=== PATIENT | female | born 1960 | race Caucasian/White ===

== ENCOUNTER → 2017-12-18 07:33 | Outpatient (CLI) | payer OTHER, SELFPAY ==
[2017-12-18 12:00] LABS: Thyroid Stim Hormone (TSH) 1.43 uIU/mL (0.358-3.74)
[2017-12-19 09:38] LABS: Vitamin D,25 Hydroxy 19.7 ng/mL (29.95-100.01)
== END ==
PROVIDERS: Family Provider Family Medicine; PCP Family Medicine; Visit Provider Family Medicine
DX: E78.5 Hyperlipidemia, unspecified (principal); E55.9 Vitamin D deficiency, unspecified; F41.9 Anxiety disorder, unspecified
CPT/HCPCS: 82306; 84443

== ENCOUNTER → 2017-12-20 12:13 | Outpatient (CLI) | payer OTHER, SELFPAY ==
--- NOTE | 2017-12-20 12:17 | RAD_ITS ---
STUDY: X-RAY - PELVIS AND LEFT HIP REASON FOR EXAM: Female, 57 years old. Chronic pain TECHNIQUE: Three views of the pelvis and hip were obtained. COMPARISON: July 08, 2015 FINDINGS: The bowel gas pattern is unremarkable. The soft tissues are unremarkable. The visualized iliac wings, sacroiliac joints and sacrum are unremarkable. No abnormalities are seen in the visualized superior and inferior pubic rami. Normal appearing pubic symphysis. The visualized ischial tuberosities are unremarkable. The proximal femur shows no significant abnormalities. The acetabulum shows no significant abnormalities. There is mild articular joint space narrowing of the hip. RAD/Hip 2-3 Views with Pelvis IMPRESSION: There are mild degenerative changes in the left hip. Electronically Signed: Jeanne Ricketts MD at 21:16 EDT Tel Direct: [phone], Service support ,
--- NOTE | 2017-12-20 12:17 | RAD_ITS ---
STUDY: X-RAY - LUMBAR SPINE REASON FOR EXAM: Female, 57 years old. Chronic pain TECHNIQUE: Five view(s) of the lumbar spine were obtained. COMPARISON: November 22, 2015 FINDINGS: Normal lumbar lordosis. There is no significant scoliosis. There is normal alignment of the vertebrae. There is minimal spurring in the lumbar spine. Vertebral body heights are maintained. There is mild disc space narrowing at L2-3. The soft tissues are unremarkable. RAD/L/S Spine Min 4 Views IMPRESSION: Mild degenerative disc changes at L2-3 are stable in appearance. Electronically Signed: Jeanne Ricketts MD at 21:05 EDT Tel Direct: [phone], Service support ,
== END ==
PROVIDERS: Family Provider Family Medicine; PCP Family Medicine; Visit Provider Family Medicine
DX: M16.12 Unilateral primary osteoarthritis, left hip (principal); M51.36 Other intervertebral disc degeneration, lumbar region; G89.29 Other chronic pain
CPT/HCPCS: 72110; 73502

== ENCOUNTER → 2018-01-07 14:54 | Outpatient (CLI) | payer OTHER, SELFPAY ==
--- NOTE | 2018-01-07 14:56 | BI_ITS ---
MAMMOGRAPHY - BILATERAL SCREENING 3-D CHIQUIS SYNTHESIS REASON FOR EXAM: Female, 57 years old. Bilateral Screening 3-D tomosynthesis PERTINENT HISTORY: Sister with breast cancer. Hormone use. TECHNIQUE: 2-D mammograms and 3-D Chiquis synthesis of the breast (s) were performed. CAD was performed. COMPARISON: None. FINDINGS: The breast composition is composed of scattered fibroglandular density. Scattered benign calcifications are seen. No dense spiculated masses or suspicious microcalcifications are identified. No architectural distortion is identified. There is no skin thickening or retraction. There has been no significant change since the prior study. BI/SCREENING MAMM (CAD), BILAT IMPRESSION: No mammographic signs of malignancy. Routine yearly mammograms recommended. ASSESSMENT CATEGORY: BIRADS Category 2: Benign. A letter regarding these results will be sent to the patient by the facility within 30 days. FOLLOW UP RECOMMENDATION: Yearly follow up mammogram recommended. (A) Approximately 10% of breast cancers are not detected by mammography. A normal mammogram should not delay biopsy of a clinically suspicious abnormality. Electronically Signed: Jeremy Moon MD at 8:37 EDT , Service support ,
== END ==
PROVIDERS: Family Provider Family Medicine; PCP Family Medicine; Visit Provider Family Medicine
DX: Z12.31 Encounter for screening mammogram for malignant neoplasm of breast (principal); Z80.3 Family history of malignant neoplasm of breast
CPT/HCPCS: 77063; 77067

== ENCOUNTER 2018-02-04 09:24 | Day surgery (SDC) | payer OTHER, SELFPAY ==
[2018-02-04 09:43] VITALS: BP 130/95; PULSE 88; RESP 16; TEMP 36.6; O2SAT 100; BMI 34.5
[2018-02-04] MEDS: Bupivacaine 0.25% 30 ML Vial (10:29)
[2018-02-04] MEDS: MethylPREDNISolone Acetate 80 MG/ML Vial (10:29)
[2018-02-04 10:40] VITALS: BP 126/72; BP 130/95; PULSE 82; RESP 16; TEMP 36.3; O2SAT 92
[2018-02-04 10:45] VITALS: BP 123/77; BP 130/95; PULSE 74; RESP 16; O2SAT 93
[2018-02-04 10:50] VITALS: BP 124/80; BP 130/95; PULSE 74; RESP 16; O2SAT 92
[2018-02-04 10:52] VITALS: BP 117/76; BP 130/95; TEMP 36.4; O2SAT 93
[2018-02-04 11:06] VITALS: BP 130/95
--- NOTE | 2018-02-04 15:18 | PCM.OPRPT ---
Problem List (1) Degeneration of intervertebral disc of lumbosacral region Status: Chronic (2) Radiculopathy of lumbosacral region Status: Chronic (3) Spinal stenosis of lumbosacral region Status: Chronic Report of Operation Date of Procedure: 02/04/18 Pre-Operative Diagnosis: Lumbosacral radiculopathy, lumbosacral degenerative disc disease, lumbosacral spinal stenosis Post-Operative Diagnosis: Lumbosacral radiculopathy, lumbosacral degenerative disc disease, lumbosacral spinal stenosis Surgery/Procedure Performed:: Left sided lumbar transforaminal epidural steroid injection L4-5, L5-S1 Description of Surgical Findings:: PROCEDURE: Caudal epidural steroid injection PREOPERATIVE DIAGNOSIS: Lumbosacral radiculopathy, lumbosacral degenerative disc disease, lumbosacral spinal stenosis POSTOPERATIVE DIAGNOSIS: Lumbosacral radiculopathy, lumbosacral degenerative disc disease, lumbosacral spinal stenosis ANESTHESIA: MAC COMPLICATIONS: None BLOOD LOSS: Minimal PROCEDURE IN DETAIL: History and physical today was reviewed. Risks and benefits of the procedure were explained. The patient understood, agreed to our procedure, and informed consent was obtained. IV inserted per routine protocol. The patient was taken to the operating room, placed in a prone position with a pillow positioned underneath the abdomen. The Lower back area was prepped and draped in a sterile fashion using iodine ?3, under fluoroscopy guidance the L4-5 L5-S1 area was visualized at approximately 25? angle starting on the left L4 ending on the left L5, the skin and subcutaneous tissue were anesthetized with approximately 5 cc of 1% lidocaine using a 25-gauge regular needle under direct visualization fluoroscopy using a 22-gauge 5 inch spinal needle the needle was advised advanced via the skin the tip of the needle was maneuvered and directed towards the inferior and medial gutter of the transverse process at the superiormost aspect of the neuroforamen once the tip of the needle was at the vicinity of the foramen after negative aspiration for blood or CSF a total of 1 cc of contrast was injected in divided doses between both levels to confirm correct placement of the needle as well as medial spread the confirmation was obtained on AP as well as lateral view after repeated negative aspiration and confirmation AP as well as lateral view a total of 6 cc of preservative-free 0.25% Marcaine with 80 mg of Depo-Medrol were injected in divided doses between both levels. The needles were then removed intact. The patient experienced no signs or symptoms intrathecal, intravascular injection. The patient experienced no paraesthesia. The procedure was completed without any apparent difficult, any complication. The patient appeared to tolerate well. ASSESSMENT AND PLAN: This is a 57-year-old female with lumbosacral radiculopathy, lumbosacral degenerative disc disease, lumbosacral spinal stenosis status post left-sided lumbar transforaminal epidural steroid injection L4-5 L5-S1. The patient will continue her current medications. The patient will follow in approximately 2 weeks for possible repeat of the procedure if indicated.
== END 2018-02-04 11:13 | disposition home or self-care (01) ==
LOC: SDC 09:25 → AC 09:26
PROVIDERS: Family Provider Family Medicine; PCP Family Medicine; Visit Provider Anesthesiology Pain Medicine
PROC: 3E0S3BZ Introduction of Anesthetic Agent into Epidural Space, Percutaneous Approach (ICD-10-PCS; CPT 62323; principal; 2018-02-04 10:25)
DX: M47.817 Spondylosis without myelopathy or radiculopathy, lumbosacral region (principal); M51.37 Other intervertebral disc degeneration, lumbosacral region; M48.07 Spinal stenosis, lumbosacral region; M46.96 Unspecified inflammatory spondylopathy, lumbar region; M76.9 Unspecified enthesopathy, lower limb, excluding foot; M16.9 Osteoarthritis of hip, unspecified; M66.9 Spontaneous rupture of unspecified tendon; K21.9 Gastro-esophageal reflux disease without esophagitis; E78.00 Pure hypercholesterolemia, unspecified; F32.9 Major depressive disorder, single episode, unspecified; Z78.0 Asymptomatic menopausal state; Z79.891 Long term (current) use of opiate analgesic; Z79.899 Other long term (current) drug therapy
CPT/HCPCS: 62323; 64483; 72100; J7120

== ENCOUNTER → 2018-02-14 11:40 | Outpatient (CLI) | payer OTHER, SELFPAY | PROVIDERS: Family Provider Family Medicine; PCP Family Medicine; Visit Provider Physician Assistant | DX: R05 Cough (principal) | CPT/HCPCS: 70360 ==

== ENCOUNTER 2018-04-20 10:15 | Outpatient (RCR) | payer OTHER, SELFPAY ==
--- NOTE | 2017-09-19 20:08 | MASS.EVAL ---
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 She was referred for massage therapy with a diagnosis of neck and shoulder pain. She presents today with pain and muscle tension in her neck, shoulders and upper back. She describes the pain as tension and tightness. At times severe but usually every day it is present and dull. Her medications include Celecoxib, Citalopram, Gabapentin, Crestor, Amitriptyline, Omeprazole, and Premarin. She states that her health is good with no limitation in her daily activities. She denies any disc bulge or fusion. OBJECTIVE: Upon examination and palpation I found Geovanna to have considerable muscle tension in her suboccipitals, upper traps, levators, scalenes and interscapular region. Her first treatment consisted of a one hour moderate to deep tissue massage to her upper body only. MFR and muscle stripping were incorporated into the massage as well as PNMT to her cervicals and a heat pack to loosen muscles. ASSESMENT: Using various techniques I was able to achieve good releases overall. She tolerated pressure well and relaxed easily. PLAN: I plan to see this patient on an as-needed basis for a total of 10 visits in the year 2018. I will focus on her head, neck and shoulders to relieve muscle tension and stiffness and to promote relaxation. Yesica Tsai LMT
--- NOTE | 2017-09-19 20:20 | MASS.EVAL_ITS ---
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. She was referred for massage therapy with a diagnosis of neck and shoulder pain. She presents today with pain and muscle tension in her neck, shoulders and upper back. She describes the pain as tension and tightness. At times severe but usually every day it is present and dull. Her medications include Celecoxib, Citalopram, Gabapentin, Crestor, Amitriptyline, Omeprazole, and Premarin. She states that her health is good with no limitation in her daily activities. She denies any disc bulge or fusion. OBJECTIVE: Upon examination and palpation I found Geovanna to have considerable muscle tension in her suboccipitals, upper traps, levators, scalenes and interscapular region. Her first treatment consisted of a one hour moderate to deep tissue massage to her upper body only. MFR and muscle stripping were incorporated into the massage as well as PNMT to her cervicals and a heat pack to loosen muscles. ASSESMENT: Using various techniques I was able to achieve good releases overall. She tolerated pressure well and relaxed easily. PLAN: I plan to see this patient on an as-needed basis for a total of 10 visits in the year 2018. I will focus on her head, neck and shoulders to relieve muscle tension and stiffness and to promote relaxation. Yesica Tsai LMT
--- NOTE | 2018-06-07 14:03 | MASS.DISCH ---
Massage Therapy Discharge Summary: Dear Dr. Jeyson Baker: Geovanna Pettit, 1960, was seen for a massotherapy evaluation on 07/25/2017. She was treated with 9 sessions of massage therapy which consisted of moderate to deep tissue massage. MFR and muscle stripping were incorporated as well as a heat pack to loosen muscles. Due to time constraints with insurance, at this time I will discharge this patient from our care here at [facility] facility. Sincerely, Yesica Tsai LMT
== END 2018-04-20 19:00 | disposition home or self-care (01) ==
LOC: MASS 10:15
PROVIDERS: Family Provider Family Medicine; PCP Family Medicine; Visit Provider Family Medicine
DX: M51.36 Other intervertebral disc degeneration, lumbar region (principal)
CPT/HCPCS: 97124

== ENCOUNTER 2018-04-22 18:00 | Outpatient (RCR) | payer OTHER, SELFPAY ==
--- NOTE | 2018-03-05 07:56 | HP.PTEVAL ---
Patient's Visit Information VELMA CRUZ is a 57 year old F referred to Physical Therapy by DAV Ivey with a diagnosis of LOWER BACK PAIN,DDD,LEFT HIP PAIN. Date of Evaluation: 03/04/18 Physical Therapist: Neftali Solis PT, - Visit Plan Frequency: 2x /Week Duration: 4 Weeks Plan: [facility] PT for hip ROM/STRENGTH/FLEXABLITY ,PROGRESSES WITH CORE EX'S - Subjective Subjective: This 57 y/o female presents to physical therapy with with lower back pain, DDD and left hip pain. Patient has had lumbar several years . Patient has h/o pain in knee then affected left hip ase well. Patient had arthroscpic left for labral tear 3years ago . Pateint most recently had epidural Injection lumbar February 04 which didnt help. Symptoms described as dull toothache.No pain with bending. Symptoms worse in left thigh anterior with walking/standing 15 min ,job demands ,and housework tasks. Symptoms siting ,rest. Coughing/sneezing -. Patient c/o parathesia/tingling thigh. Trauma fell on back 39 years ago. Tried chiropractor manipulation and massage.Patient had MRI 3 years ago of lumbar mild bulding disc .Plans to see DR Gupta hip. 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 SOCAIL: - Pain Bilateral Back Pain Intensity (Out of 10): 2 Pain Intensity Range: 10 Left Lower Extremity Pain Intensity (Out of 10): 8 Pain Intensity Range: 10 Comment: standing - Objective POSTURE: mild foward posture. PALAPTION: unremarkable. GAIT: antalgic gait with decrease stance anatlgic left leg. NEURO: c/o parathesia/tingling right thigh,reflexes intact reflexes L3-4,L4-5,L5-S1 1/2. MMT: quads/hams/hip flexion/abduction 4/5 ,ankle 4/5. HIP ROM: PROM hip flexion 100 degrees,IR 5 painfull,hip abd 50 degrees. LUMBAR ROM: flexion /extension side glides WFL no pain - Special Tests L/S Slump test left side: Negative L/S Slump test right side: Negative L/S Left Straight Leg Raise: Negative L/S Right Straight Leg Raise: Negative Lumbar Standing: Flexion - Mechanical Response: No effect Lumbar Standing: Flexion - Symptoms During Testing: No effect Lumbar Standing: Flexion - Symptoms After Testing: No effect Lumbar Standing: Extension - Mechanical Response: No effect Lumbar Standing: Extension - Symptoms During Testing: No effect Lumbar Standing: Extension - Symptoms After Testing: No effect Lumbar Standing: Right Side Glides - Mechanical Response: No effect Lumbar Standing: Right Side [place] - Symptoms During Testing: No effect Lumbar Standing: Right Side [place] - Symptoms After Testing: No effect Lumbar Standing: Left Side [place] - Mechanical Response: No effect Lumbar Standing: Left Side [place] - Symptoms During Testing: No effect Lumbar Standing: Left Side [place] - Symptoms After Testing: No effect Lumbar Lying: Flexion - Mechanical Response: No effect Lumbar Lying: Flexion - Symptoms During Testing: No effect Lumbar Lying: Flexion - Symptoms After Testing: No effect Lumbar Lying: Extension - Mechanical Response: No effect Lumbar Lying: Extension - Symptoms During Testing: No effect Lumbar Lying: Extension - Symptoms After Testing: No effect L Hip Scour: Positive L Hip Quadrant - Intraarticular Pathology: Positive L Hip J LUIS - Intraarticular Pathology: Positive L Hip Trendelenberg - Glut Medius: Negative L Hip Madelaine - IT Band: Negative - Goals Goal 1:: Independant with [facility]atic PT Goal Time Frame: 4-6 Weeks Goal 2:: Decrease pain in left thigh by 50 % or greater to improve function with walking standing. Goal Time Frame: 4-6 Weeks Goal 3:: Patient to improve quality of gait with stance swing phase. Goal Time Frame: 4-6 Weeks Goal 4:: Patient be able to perform ADL'S and job demands/housework with ablity to stand /walk greater then 15 min Goal Time Frame: 4-6 Weeks - Rehabilitation Potential Physical Therapy Diagnosis: Patient has h/o of arthroscopic hip surgery due to labral tear 3 years ago. Recently had epidural injection back didnt help. Patient c/o is pain in left anterior thigh when standing or walking 15 min affects job and housework.Lumbar motion assessment didnt aggravate symptoms. Plan to follow with Dr Pham for hip. Rehabilitation Potential: Good - Anticipated Interventions Patient/Client Instruction: Educate patient on: Condition, Plan of Care For the Purpose of:: To decrease pain, To increase ROM, To improve muscle performance and motor function, To improve ability to perform ADL's, To increase tolerance to activity/condition/position, To improve ability of physical actions for home/community/work/leisure, To increase flexibility/ROM, To assume or resume ADL's, To improve ability to perform tasks related to life management Therapeutic Exercise to Include: Strength training, Body mechanics, Postural training, Flexibilty training, In an aquatic setting, Dynamic Lumbar Stabilization For the Purpose of:: To decrease pain, To increase ROM, To improve muscle performance and motor function, To increase tolerance to activity/condition/position, To improve ability of physical actions for home/community/work/leisure, To improve health of tissue, To decrease soft tissue restriction, To increase flexibility/ROM, To improve ability to perform tasks related to life management Thank you for the opportunity to evaluate your patient. For Medicare and Medicare HMO plans, please review the plan of care and approve it. It will need to be FAXED BACK to us at [phone] for Medicare purposes. Please let me know if there are questions or concerns regarding this plan of care. Physician Signature: Date:
--- NOTE | 2018-04-22 18:28 | HP.PTDCSUM_ITS ---
HP - PT D/C Summary It has been my pleasure to treat VELMA CRUZ under orders from DAV Ivey, for the diagnosis of LOWER BACK PAIN,DDD,LEFT HIP PAIN for a total of 9 visit(s). Discharge Date: 04/22/18 Please see the following information for a summary of their discharge status. - Subjective Subjective: Plan for hip surgery in June - Pain Bilateral Back Pain Intensity (Out of 10): 0 Left Lower Extremity Pain Intensity (Out of 10): 0 - Overall Improvement % Improvement: 25 - Objective Objective/Function: POSTURE : WFL. GAIT: mild decrease stance time reciprocal. MMT: quads/hams 4/5,hip 4-/5 ,ankle 4/5. AROM: WFL pain with IR/ER. LUMBAR SPINE: min loss all planes - Goals Goal 1:: Independant with Aquatic PT Goal Progress: Goal Met Goal 2:: Decrease pain in left thigh by 50 % or greater to improve function with walking standing. Goal Progress: Progressing Goal 3:: Patient to improve quality of gait with stance swing phase. Goal Progress: Progressing Goal 4:: Patient be able to perform ADL'S and job demands/housework with ablity to stand /walk greater then 15 min Goal Progress: Progressing - Plan Plan: d/c to [facility] plan for surgery 2weeks - D/C Information Discharge Comments: scheduled for Hip surgery If there are questions or concerns regarding this patient's physical therapy, please feel free to call me at [phone]. Thank you for the referral of this patient. Sincerely, Neftali Solis, PT,
== END 2018-04-22 19:00 | disposition home or self-care (01) ==
LOC: PT 18:00
PROVIDERS: Family Provider Family Medicine; PCP Family Medicine; Visit Provider Nurse Practitioner Family
DX: M54.5 Low back pain (principal); M25.552 Pain in left hip
CPT/HCPCS: 97110; 97113; 97161; 97530

== ENCOUNTER 2018-06-19 05:27 | Inpatient (IN) | payer OTHER, SELFPAY ==
[2018-06-05 10:24] VITALS: BP 146/77; PULSE 84; RESP 16; TEMP 36.1; O2SAT 98; BMI 34.2
--- NOTE | 2018-06-05 10:38 | SDCEKG_ITS ---
Test Reason : Blood Pressure : / mmHG Vent. Rate : 071 BPM Atrial Rate : 071 BPM P-R Int : 158 ms QRS Dur : 076 ms QT Int : 386 ms P-R-T Axes : 054 -24 024 degrees QTc Int : 419 ms Normal sinus rhythm Minimal voltage criteria for LVH, may be normal variant Borderline ECG Confirmed by CORNELIA RESENDEZ MD ([id number]), tape editor ELISA ROUSE ([id number]) on 06/07/2018 1:42:13 PM Also confirmed by NICOLE CANALES MD ([id number]), tape editor ELISA ROUSE ([id number]) on 06/12/2018 1:42:28 PM Referred By: Domenic Pham Confirmed By:NICOLE CANALES MD
[2018-06-05 11:03] LABS: Absolute Lymphocyte Count 1.37 X10^3/ul (0.83-4.51); Absolute Neutrophil Count 4.7 X10^3/uL (2.0-7.7); Basophil# 0.03 X10^3/uL; Basophil% 0.5 % (0-1); Eosinophil# 0.15 X10^3/uL; Eosinophils% 2.3 % (0-5); Hematocrit 41.7 % (37-47); Hemoglobin 13.5 g/dl (12.0-15.0); Lymphocyte # 1.37 X10^3/ul (4.0); Lymphocyte % 20.9 % (19-41); Mean Corp Hgb Conc 32.4 g/gl (32-36); Mean Corpuscular Hgb 30.3 pg (27.0-32.0); Mean Corpuscular Volume 93.5 fL (81-99); Monocyte# 0.36 X10^3/uL; Monocyte% 5.5 % (0-10); Neutrophil # 4.65 X10^3/uL (2.7-7.7); Neutrophil % 70.8 % (47-70); POSITIVE COUNT NO; POSITIVE DIFFERENTIAL NO; POSITIVE MORPHOLOGY NO; Platelet Count 210 K/mm3 (150-450); RBC Distribution Width CV 13.3 % (11.6-14.6); RBC Distribution Width SD 45.6 fl (35.1-43.9); Red Blood Count 4.46 M/mm3 (4.2-5.4); White Blood Count 6.6 K/mm3 (4.4-11.0)
[2018-06-05 11:37] LABS: Anion Gap 8 (5-15); BUN 14 mg/dL (7-18); BUN/Creat Ratio 20.3 RATIO (10-20); Calcium,Total 9.4 mg/dL (8.5-10.1); Chloride 106 mmol/L (98-107); Creatinine, Serum 0.69 mg/dL (0.55-1.02); EST Glomerular Filtration Rate 93 mL/min (>60); Est Glom Filt Rate - Afr Amer 112 mL/min (>60); Estimated Creatinine Clearance 75.81 ml/min; Glucose 97 mg/dL (74-106); Potassium 3.7 mmol/L (3.5-5.1); Sodium Level 139 mmol/L (136-145)
--- NOTE | 2018-06-06 12:05 | HP.PCM_ITS ---
History and Physical DATE OF SURGERY: 06/19/2018 SCHEDULED PROCEDURE: left total hip arthroplasty HISTORY OF PRESENT ILLNESS: This is a 58-year-old female who is been having ongoing pain in her left hip for the past 5 years. Patient states her pain can reach as high as an 8/10. Patient does have start up pain. Her pain is stabbing in the left hip. She has increased pain going up and down stairs, walking any amount of distance. Pain is located in the lateral hip and groin. Patient states she has difficult time with activities of daily living including shopping. It is been getting harder to do this due to her progressive worsening pain. Patient has difficult time tying her shoes and getting dressed. Patient has had previous hip arthroscopy for femoral acetabular impingement as well as corticosteroid injections without any significant relief. She has had previous physical therapy and home exercises with no relief in symptoms. Patient does take gabapentin for the past several years. She states she is unable to stand for more than 10 minutes. Patient has tried oral medications consisting of Celebrex with minimal to no relief. Patient currently denies any chest pain, shortness of breath, fevers chills, recent infections. We have obtain surgical clearance from patient's primary care physician. Patient has medical history pertinent for acid reflux. After failing conservative measures and discussing all treatment options with Dr. Domenic Pham, the patient would like to proceed with a left total hip arthroplasty. REVIEW OF SYSTEMS: ROS: Const: Reports anxiety, but denies anorexia, change in appetite, fever, hard of hearing, vision problems and weight change. CV: Denies chest pain, heart murmur, irregular heartbeat and peripheral vascular disease. Resp: Denies asthma, cough, pneumonia, sleep apnea, SOB, tuberculosis and wheezing. GI: Denies constipation, diarrhea, difficulty swallowing, heartburn, nausea, bloody stools and vomiting. : Urinary: denies incontinence. Musculo: Denies leg swelling, limp, trouble walking and weakness. Skin: Denies Raynaud's, history of shingles and tattoo. Neuro: Denies ambulatory dysfunction, dizziness, numbness/tingling and tremor. Psych: Denies anxiety, depression, insomnia, mental illness and stress. Qasim/Lymph: Denies anemia, bleeding/bruising tendency and past transfusion. Reviewed, no changes. PAST MEDICAL HISTORY: Advance Care Plan: No Advance Directives Effective Date: 03/18/2018 PMH: Medical Problems: Arthritis, Acid Reflux, Hypercholesterolemia Accidents: RT Wrist FX - (1999) Surgical Hx: Hysterectomy - (2012) [facility] RT Wrist Reconstruction - (1999) [facility] LT Hip Arthroscopy - (2015) TOOD @ [facility] Anesthesia Complications: None Assistive Devices: Glasses Reviewed and updated. 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 Personal Habits: Cigarette Use: Never Smoked Cigarettes.Alcohol: Occasiona lly.Drug Use: Denies Use.Enjoy Exercising: Exercises 1-3 x/month. Reviewed and updated. VITALS: Ht: 64.5 Wt: 201lb Wt k.174 BMI: 34.0 BP: 126/82 Pulse: 70 Resp: 16 T: 98.2 T: 36.8C ALLERGIES: No Known Drug Allergy MEDICATIONS: Omeprazole 40 mg 1 by mouth every day, Premarin 0.625 mg, Amitriptyline HCL 20 mg 1po qday, Citalopram Hydrobromide 20 mg 1 by mouth every day, Celebrex 50 mg 1 cap PO daily, Rosuvastatin Calcium 10 mg 1 by mouth every day, Ranitidine 150 mg 300 mg as needed, B-12 (Methylcobalamin) 1000 mcg, Multi Vitamin daily, Vitamin D 5000 Unit 1 by mouth every day, Fluticasone Propionate 50 mcg/Act daily, Gabapentin 300 mg 1 by mouth three times a day PRE-OP EXAM: General appearance:NORMAL Other: Eyes: Conjunctivae and lids: NORMAL Pupils: ERR Ears, Nose, Mouth, and Throat: NORMAL Other: Inspection of lips, teeth and gums: NORMAL Other: Neck: Examination of neck: no masses noted. Respiratory: Assessment of respiratory effort: NORMAL Other: Auscultation of lungs: clear to auscultation no wheezes, rhonchi or rales. Cardiovascular: Auscultation of heart: regular rate and rhythm, no murmurs, gallops or rubs. Exam of carotid arteries: NORMAL Other: Gastrointestinal: Exam of abdomen: soft, nontender, nondistended bowel sounds present. PHYSICAL EXAMINATION: Patient walks with an antalgic gait. Patient has tenderness to palpation over the left greater trochanteric region. She has increased pain with range of motion left hip. Range of motion left hip: 80 flexion, internal rotation 15, external rotation 35. Sensation intact to light touch. Neurovascular intact. IMAGING STUDIES: X-rays of the left hip including AP pelvis and AP left hip were obtained at [facility] on June 05, 2018 reveal joint space narrowing with subchondral sclerosis consistent with moderate to severe osteoarthritis. No acute findings of fracture or dislocation. IMPRESSION: 1. Left hip osteoarthritis 2. Gastroesophageal reflux disease 3. Hypercholesterolemia PLAN: Dr. Domenic Pham did discuss and review with the patient all treatment options including surgical versus nonsurgical options. Patient does wish to proceed with the above-stated procedure. Potential risks, benefits, and complications of the procedure were discussed in detail including but not limited to , infection, nerve and blood vessel damage, persistent pain, numbness, tingling, paresthesias, blood clot, pulmonary embolism, and requirement for possible further surgery. The patient expressed full understanding and has no further questions for the doctor. Patient does agree to proceed with the above-stated procedure and has signed the surgery consent form. This dictation was created using voice recognition software. Phonetic and/or grammatical errors may exist.. ___ I have re-examined the patient. There are no clinical changes since date of exam. ___ See progress notes for changes. ___ Dictated on admission Date: Time: Signature:
[2018-06-07 14:41] LABS: Albumin, Serum 4.1 g/dL (3.2-5.0)
[2018-06-19] VITALS (9 sets, daily range): BP systolic 104–143; BP diastolic 61–89; PULSE 76–101; RESP 12–18; TEMP 36.4–37.1; O2SAT 93–99; BMI 34.2
[2018-06-19] MEDS: Acetaminophen 500 MG Tablet 1000 MG PO ×3 (05:56→21:38)
[2018-06-19] MEDS: oxyCODONE HCl Cr 10 MG Tablet PO (05:56)
[2018-06-19] MEDS: Celecoxib 200 MG Capsule 400 MG PO (05:56)
--- NOTE | 2018-06-19 06:48 | RAD_ITS ---
STUDY: X-RAY - LEFT HIP REASON FOR EXAM: Female, 58 years old. Documentation of total left hip replacement. TECHNIQUE: 2 views of the hip. COMPARISON: Preoperative radiographs of the pelvis and left hip dated December 20, 2017. FINDINGS: The patient now has a left-sided total hip arthroplasty. The components appear to have normal relationship and appearance. There are mild degenerative changes of the right hip. Normal visualized superior and inferior pubic rami and ischial tuberosities. There is no demonstrated hip fracture. RAD/Hip Min 2 Views (Portable) IMPRESSION: Documentation of total left hip arthroplasty. Electronically Signed: Maude Jenkins MD at 10:47 EST , Service support ,
[2018-06-19] MEDS: Lactated Ringers 1,000 ML 999 ML IV (06:50)
--- NOTE | 2018-06-19 07:11 | OP.PCM_ITS ---
Report of Operation Date of Procedure: 06/19/18 Pre-Operative Diagnosis: Left hip primary osteoarthritis Post-Operative Diagnosis: Left hip primary osteoarthritis Surgery/Procedure Performed:: Left direct anterior total hip replacement Description of Surgical Findings:: Stable hip with equal leg lengths direct casting operator: Bernice Masters Type of Anesthesia:: Spinal Anesthesiologist: Reuben Loaiza Special Medications: 2 g Ancef, 1 g TXA at incision, 1 g TXA closure, 10 mg Decadron, joint cocktail (5 mg Duramorph, 30 mL of 0.5% Ropivicaine, 1000 units of epinephrine, 30 mg of Toradol) Specimen's removed: Bony cuts Estimated Blood Loss (mL): 150 Fluids Replaced: 1600 mL crystalloid Description of Procedure: Components used: 1. Accolade 2 [place] femoral stem size 3 127? 2. [place] trident acetabular shell size 48 mm 3. Tosin X3 polyethylene D 4. Tosin Biolox delta 32mm, 0mm femoral head Brief history operative indications: 58 yo f who failed conservative measures for their hip osteoarthritis. X-rays were consistent with osteoarthritis including joint space narrowing, osteophyte formation and subchondral cysts. Total hip replacement was discussed with the patient with risks and benefits including but not limited to blood loss, DVTs, PEs, neurovascular damage, dislocation, general risks of anesthesia including loss of life. Patient demonstrated an understanding medical clearance is obtained the patient was consented for surgery. Procedure: On the date of procedure the patient's L hip was marked in the preoperative area. Patient was then taken back to the operating room where anesthesia assumed control of the C-spine and airway and administered anesthetic. Patient was transferred to the operating table and placed in the supine position. The hips were placed at the break of the bed and a sacral bump was placed. The L lower extremity was then prepped out in a sterile fashion using chlorhexidine while the surgeon scrubbed. The PA was vital in the positioning of the patient. Upon reentering the room the L lower extremity was draped in the standard orthopedic fashion and the incision was marked. A timeout was called and everyone agreed upon the side, the site, the procedure be performed, antibody given, and patient's identity. At this time incision was made through skin, subcutaneous tissue, and fat down to fascia. The fascia was then incised and the TFL was retracted laterally. A retractor was placed on the lateral border of the femoral neck. Attention was directed to the inferior portion of the approach and all crossing vessels were identified and appropriately coagulated. A retractor was then placed on the medial portion of the femoral neck. The anterior capsule was then cleared of all soft tissue and then H shaped capsulotomy was made. The retractors were then placed inside the capsule. The femoral neck was identified and a cleanup cut was made. At this time a power corkscrew was used to remove the femoral head. Attention was then turned toward the acetabulum where the soft tissues were appropriately retracted and the acetabulum was sequentially reamed to 48 mm. A 48 mm cup was then selected and impacted into place. Acetabular liner was impacted into place and locking mechanism was verified. The position of the acetabular cup was then verified under live fluoroscopy. Attention was then turned to the femur. Soft tissue releases on the medial and lateral femoral neck were appropriately done, the leg was externally rotated and lateralized. A [place] retractor was placed medially and proximally to the greater trochanter this allowed appropriate visualization and exposure of the femoral canal. Rongeour was then used to remove excess lateral bone. A canal finder and entry broach were used to open the proximal canal. Once we verified we were down the femoral canal we subsequently broached up to a size 3 femur. The appropriate neck was placed in the previously selected head was trialed with a 0 mm neck. Traction was pulled and the hip was reduced with internal rotation. Once it was appropriately reduced and stability was checked. There was minimal shuck, equal leg lengths and appropriate stability with hyperextension and external rotation as well as with 90? flexion and internal rotation. Fluoroscopy was then also used to verify the position of the components and leg lengths using the contralateral side for comparison. The trial components were then dislocated the proximal femur was again exposed and the components were removed from the wound. The final components were verified and opened. The wound was copiously irrigated out with normal saline. The acetabulum was checked for any residual debris. The final components were placed and impacted. Traction and internal rotation were again used to reduce the hip. After adequate reduction the hip remained stable with appropriate leg lengths. The final components were once again checked with live fluoroscopy and were found to be satisfactory. The wound was then copiously irrigated with normal saline once more, and hemostasis was obtained. Closure was then done using #1 Vicryl runner to close the fascia. A 2-0 vicryl interuppted sutures were used to close the subcutaneous skin. A 3-0 Monocryl and Steri-Strips were used for final skin closure. A Silverlon dressing was placed. Patient was awakened by anesthesia and [facility] Patient was then transferred to the PACU for recovery. Postoperative plan: Patient will get 24 hours postop antibiotics. Patient will get in-house physical therapy and will be weight-bear as tolerated. Patient will follow up in office in 2 weeks for a wound check and x-rays. Xarelto for DVT prophylaxis secondary to hormone replacement therapy Grafts/Implants Used: Tosin Accolade 2, Trident 2 - Complications None - Admit VTE Documentation VTE Present on Admission: No VTE Mechan Device Prophylaxis: SCD's, Thigh High BRIANDA Hose VTE Pharm Prophylaxis ordered?: Yes
[2018-06-19] MEDS: Cefazolin 2 GM in 0.9% Normal Saline 100 ML IV (07:12)
--- NOTE | 2018-06-19 07:15 | RAD_ITS ---
STUDY: X-RAY - LEFT HIP REASON FOR EXAM: Female, 58 years old. Documentation of fluoroscopic radiation use during total left hip arthroplasty. TECHNIQUE: 2 views of the hip. COMPARISON: Radiographs of the pelvis and left hip dated December 20, 2017. FINDINGS: Images document a total left hip arthroplasty . Soft tissue emphysema is visible. Please see operative report for additional details. Total exposure time: 4.1 seconds. RAD/Hip 1 view with Pelvis IMPRESSION: Documentation of fluoroscopic radiation use during total hip arthroplasty. Electronically Signed: Maude Jenkins MD at 10:40 EST , Service support ,
[2018-06-19] MEDS: Morphine 2 MG/ML Syringe IV (12:53)
[2018-06-19] MEDS: Lactated Ringers 1,000 ML 125 ML IV ×2 (12:54→21:40)
[2018-06-19] MEDS: Cefazolin 1 GM/50 ML BAG IV ×2 (14:04→22:30)
--- NOTE | 2018-06-19 15:52 | PCM.RX.CS ---
Consult Pharmacy has been consulted to manage selected antiobiotic: Vancomycin Type of Consult: New start Suspected Infection: Other Prior Doses of Antibiotics Received/Current Regimen: Received preop dose of 1250mg at 06:24 this morning Labs: Sodium 139 mmol/L (136-145) 06/05/18 10:45 Potassium 3.7 mmol/L (3.5-5.1) 06/05/18 10:45 Chloride 106 mmol/L (98-107) 06/05/18 10:45 Carbon Dioxide 25.0 mmol/L (21.0-32.0) 06/05/18 10:45 Anion Gap 8 (5-15) 06/05/18 10:45 BUN 14 mg/dL (7-18) 06/05/18 10:45 Creatinine 0.69 mg/dL (0.55-1.02) 06/05/18 10:45 Est GFR (MDRD) Af Amer 112 mL/min (>60) 06/05/18 10:45 Est GFR (MDRD) Non-Af 93 mL/min (>60) 06/05/18 10:45 BUN/Creatinine Ratio 20.3 RATIO (10-20) H 06/05/18 10:45 Glucose 97 mg/dL (74-106) 06/05/18 10:45 Microbiology: Microbiology 06/05/18 10:45 Swab (Method) Nasal Screen MRSA/MSSA - Final Weight used for dosin.8 kg Estimated Creatinine Clearance: 76 ml/min Goal Trough: 10-15 mcg/mL Pharmacy Plan for Drug Dosing: Continue with 1000mg IV q12h. Obtain trough before the 4th total dose. Pharmacy Service will continue to monitor and adjust dosing as required. Follow-Up Labs: Trough Vancomycin Labs to be done on [date and time ordered]: 06/20/18 at 17:30 before the dose at 18:00
[2018-06-19] MEDS: Gabapentin 300 MG Capsule PO (16:40)
[2018-06-19] MEDS: Vancomycin IV 1,000 MG/200 ML BAG 200 MG IV (17:31)
[2018-06-19] MEDS: oxyCODONE 5 MG Tablet PO (20:24)
[2018-06-19] MEDS: Senna/Docusate Sodium 1 Tablet 2 TABLET PO (21:37)
[2018-06-19] MEDS: Citalopram 20 MG Tablet PO (21:37)
[2018-06-19] MEDS: Amitriptyline 25 MG Tablet 50 MG PO (21:37)
[2018-06-19] MEDS: Atorvastatin Calcium 20 MG Tablet PO (21:37)
[2018-06-19] MEDS: Celecoxib 200 MG Capsule PO (21:38)
[2018-06-19] MEDS: Pantoprazole Sodium 40 MG Tablet PO (21:38)
[2018-06-20 02:15] VITALS: BP 110/68; PULSE 80; RESP 16; TEMP 36.7; O2SAT 93
[2018-06-20] MEDS: Vancomycin IV 1,000 MG/200 ML BAG 200 MG IV (06:05)
[2018-06-20] MEDS: Acetaminophen 500 MG Tablet 1000 MG PO ×3 (06:07→21:49)
[2018-06-20 06:43] LABS: Hematocrit 33.1 % (37-47); Hemoglobin 10.7 g/dl (12.0-15.0); Mean Corp Hgb Conc 32.3 g/gl (32-36); Mean Corpuscular Hgb 31.1 pg (27.0-32.0); Mean Corpuscular Volume 96.2 fL (81-99); Mean Platelet Vol. 10.1 fl (6.2-12.0); Platelet Count 223 K/mm3 (150-450); RBC Distribution Width CV 13.1 % (11.6-14.6); Red Blood Count 3.44 M/mm3 (4.2-5.4); White Blood Count 18.5 K/mm3 (4.4-11.0)
[2018-06-20 06:46] LABS: Scan Indicated on CBC? Y/N NO
[2018-06-20 07:09] LABS: Anion Gap 10 (5-15); BUN 12 mg/dL (7-18); Chloride 106 mmol/L (98-107); Creatinine, Serum 0.67 mg/dL (0.55-1.02); EST Glomerular Filtration Rate 96 mL/min (>60); Est Glom Filt Rate - Afr Amer 117 mL/min (>60); Estimated Creatinine Clearance 78.07 ml/min; Glucose 125 mg/dL (74-106); Potassium 4.2 mmol/L (3.5-5.1); Sodium Level 140 mmol/L (136-145)
[2018-06-20] MEDS: Estrogens,Conj. 1.25 MG Tablet PO (07:59)
[2018-06-20] MEDS: Famotidine 20 MG Tablet PO (07:59)
[2018-06-20] MEDS: Gabapentin 300 MG Capsule PO ×2 (07:59→17:02)
[2018-06-20] MEDS: Multivitamins,Therapeutic Tablet 1 TABLET PO (07:59)
[2018-06-20] MEDS: Senna/Docusate Sodium 1 Tablet 2 TABLET PO ×2 (08:01→21:49)
[2018-06-20] MEDS: Celecoxib 200 MG Capsule PO ×2 (08:01→21:49)
[2018-06-20] MEDS: oxyCODONE 5 MG Tablet PO ×3 (08:02→20:41)
[2018-06-20 08:12] VITALS: BP 119/60; PULSE 75; RESP 18; TEMP 36.7; O2SAT 94
--- NOTE | 2018-06-20 09:31 | PCM.PN.ORT ---
Subjective: The patient was sitting in bed upon examination. Patient denies any chest pain, shortness of breath, dizziness, lightheadedness, nausea or vomiting, or calf pain. Pain is controlled on medications. No adverse overnight events. Patient has had drainage since last night with regards to her left hip. Patient states the drainage increased after she was up moving. Since drainage occurred this morning patient has been placed back in bed with sandbag. Physical therapy was held. They also held the Xarelto. Objective: Vital signs stable and afebrile. Patient is able to plantarflex and dorsiflex actively. Sensation is intact to light touch to saphenous, sural, superficial and deep peroneal, and tibial distribution. Dressing is saturated over the lateral one third of the dressing contacting 3 borders. Dressing was removed with half of Steri-Strips remain. There was no active drainage over the incision. No significant erythema. Steri-Strips and new dressing were placed. Negative Homans bilaterally, negative signs and symptoms of DVT. - Physical Exam General: Alert, Oriented x3, Cooperative, No apparent distress Vital Signs Temp Pulse Resp BP Pulse Ox 98.1 F 75 18 119/60 94 06/20/18 08:12 06/20/18 08:12 06/20/18 08:12 06/20/18 08:12 06/20/18 08:12 Oxygen Flow Rate (L/min) 2 Oxygen Delivery Method Room Air Weight: 91.8 kg Body Mass Index (BMI) 34.2 Intake and Output for Last 24 Hours 06/18/18 06/19/18 06/20/18 23:59 23:59 23:59 Intake Total 3674 / 3674 1240 / 1240 Output Total 900 / 900 1000 / 1000 Balance 2774 / 2774 240 / 240 Laboratory Tests Past 24 Hrs 06/20/18 06/20/18 06:26 06:26 WBC 18.5 H RBC 3.44 L Hgb 10.7 L Hct 33.1 L MCV 96.2 MCH 31.1 MCHC 32.3 RDW 13.1 RDW Differential 44.0 H Plt Count 223 MPV 10.1 Sodium 140 Potassium 4.2 Chloride 106 Carbon Dioxide 24.0 Anion Gap 10 BUN 12 Creatinine 0.67 Estim Creat Clear Calc 78.07 Est GFR (MDRD) Af Amer 117 Est GFR (MDRD) Non-Af 96 BUN/Creatinine Ratio 18.0 Glucose 125 H Calcium 9.0 Medical Necessity - Tobacco Use Smoking Status: Never smoker Tobacco Use: Non-smoker Assessment/Plan All Active Problems (Last Reviewed 04/03/18 @ 09:21 by Adali Collazo) Pharyngeal irritation (Acute) Segmental and somatic dysfunction of thoracic region (Acute) Segmental and somatic dysfunction of cervical region (Acute) Segmental and somatic dysfunction of lumbar region (Acute) 1. S/P left direct anterior total hip arthroplasty POD #1 2. Continue Pain Medications: Tylenol and OxyIR 3. DVT Prophylaxis: Xarelto secondary to hormone replacement therapy. Xarelto this morning was held. Plan to resume later today or tomorrow. 4. PT/OT: Hold morning physical therapy, will begin physical therapy this afternoon. Weightbearing as tolerated 5. H & H: 10.7/33.1, asymptomatic 6. Reactive leukocytosis: Currently 18.5, afebrile. Patient did receive Decadron intraoperatively. 7. Dressing: I do believe patient had an underlying hematoma that was expressed when patient got up this morning to move. I was unable to get any more drainage from the incision upon removing dressing. New Steri-Strips and dressing were placed. We will continue with sandbag and ice this morning. Plan to resume physical therapy this afternoon. 8. Encouraged Incentive Spirometry 9. Disposition: Plan will be for discharge home tomorrow.
--- NOTE | 2018-06-20 10:30 | CASEMGMT ---
[facility] Face to Face with patient for initial transition planning/care coordination assessment. RN CAN introduced self and role at [facility]. Patient lying in bed, alert and oriented. Patient willing to participate in assessment and is able to answer all questions appropriately. Care providers, pharmacy, and demographics verified. Patient wishes to discharge home and is setup with [facility] for outpatient therapy with or daughter providing transportation. Patient has walker, shower chair, and grab bars at home. Patient states she has no further needs or concerns at this time. CM to follow for discharge planning needs that may arise. Disposition Plan: Patient to discharge home with outpatient patient therapy, family support, and follow-up plans in place. Margarette DAMICO, RN, CM
[2018-06-20 15:00] VITALS: BP 110/55; PULSE 74; RESP 18; TEMP 36.8; O2SAT 95
[2018-06-20 20:45] VITALS: BP 130/74; PULSE 82; RESP 16; TEMP 37; O2SAT 93
[2018-06-20] MEDS: Pantoprazole Sodium 40 MG Tablet PO (21:49)
[2018-06-20] MEDS: Atorvastatin Calcium 20 MG Tablet PO (21:49)
[2018-06-20] MEDS: Citalopram 20 MG Tablet PO (21:49)
[2018-06-20] MEDS: Amitriptyline 25 MG Tablet 50 MG PO (21:49)
[2018-06-21 02:37] VITALS: BP 110/69; PULSE 72; RESP 16; TEMP 36.6; O2SAT 93
[2018-06-21] MEDS: Acetaminophen 500 MG Tablet 1000 MG PO (05:06)
[2018-06-21] MEDS: oxyCODONE 5 MG Tablet PO ×2 (05:06→13:14)
[2018-06-21] MEDS: 0.9% NaCl Peripheral Flush Adult/Peds IV (05:07)
[2018-06-21 06:36] LABS: Hematocrit 32.3 % (37-47); Mean Corpuscular Hgb 30.4 pg (27.0-32.0); Mean Corpuscular Volume 98.2 fL (81-99); Mean Platelet Vol. 10.2 fl (6.2-12.0); Platelet Count 179 K/mm3 (150-450); RBC Distribution Width CV 13.6 % (11.6-14.6); RBC Distribution Width SD 46.8 fl (35.1-43.9); Red Blood Count 3.29 M/mm3 (4.2-5.4); White Blood Count 9.4 K/mm3 (4.4-11.0)
[2018-06-21 06:38] LABS: Scan Indicated on CBC? Y/N NO
--- NOTE | 2018-06-21 06:55 | PN.ORTHO_ITS ---
Subjective: The patient was sitting in bed upon examination. Patient denies any chest pain, shortness of breath, dizziness, lightheadedness, nausea or vomiting, or calf pain. Pain is controlled on medications. No adverse overnight events. Patient did have some continued bleeding in the left hip. They have continued to use sandbag with pressure and ice. Patient states hip pain is controlled on medications. At this time we will discontinue the Xarelto and use aspirin 81 mg twice daily with food for DVT prophylaxis for 4 weeks postoperatively. Objective: Vital signs stable and afebrile. Patient is able to plantarflex and dorsiflex actively. Sensation is intact to light touch to saphenous, sural, superficial and deep per chu, and tibial distribution. Dressing is with drainage over the lateral aspect. Mepilex dressing was taken down. I was unable to get any drainage from the incision. Incision was then dressed with ABDs. We will continue to use dry dressing changes daily. Negative Homans bilaterally, negative signs and symptoms of DVT. - Physical Exam General: Alert, Oriented x3, Cooperative, No apparent distress Vital Signs Temp Pulse Resp BP Pulse Ox 97.8 F 72 16 110/69 93 06/21/18 02:37 06/21/18 02:37 06/21/18 02:37 06/21/18 02:37 06/21/18 02:37 Oxygen Flow Rate (L/min) 2 Oxygen Delivery Method Room Air Weight: 91.8 kg Body Mass Index (BMI) 34.2 Intake and Output for Last 24 Hours 06/19/18 06/20/18 06/21/18 23:59 23:59 23:59 Intake Total 3674 / 3674 1240 / 1240 Output Total 900 / 900 1000 / 1000 Balance 2774 / 2774 240 / 240 Laboratory Tests Past 24 Hrs 06/20/18 06/21/18 06:26 05:53 WBC 9.4 RBC 3.29 L Hgb 10.0 L Hct 32.3 L MCV 98.2 MCH 30.4 MCHC 31.0 L RDW 13.6 RDW Differential 46.8 H Plt Count 179 MPV 10.2 Sodium 140 Potassium 4.2 Chloride 106 Carbon Dioxide 24.0 Anion Gap 10 BUN 12 Creatinine 0.67 Estim Creat Clear Calc 78.07 Est GFR (MDRD) Af Amer 117 Est GFR (MDRD) Non-Af 96 BUN/Creatinine Ratio 18.0 Glucose 125 H Calcium 9.0 Medical Necessity - Tobacco Use Smoking Status: Never smoker Tobacco Use: Non-smoker Assessment/Plan All Active Problems (Last Reviewed 04/03/18 @ 09:21 by Adali Collazo) Pharyngeal irritation (Acute) Segmental and somatic dysfunction of thoracic region (Acute) Segmental and somatic dysfunction of cervical region (Acute) Segmental and somatic dysfunction of lumbar region (Acute) 1. S/P left direct anterior total hip arthroplasty POD #2 2. Continue Pain Medications: Tylenol and OxyIR 3. DVT Prophylaxis: Discontinued Xarelto. Will begin aspirin 81 mg twice daily for 4 weeks postoperatively with food 4. PT/OT: Hold morning physical therapy, will begin physical therapy this afternoon. Weightbearing as tolerated 5. H & H: 10.0/32.3, asymptomatic 6. Reactive leukocytosis: resolved Currently 9.4, afebrile. Patient did receive Decadron intraoperatively. 7. Dressing: Patient will use dry dressing changes daily. Continue with compression. Patient will be given ABDs to take home with appropriate tape. Patient was instructed that if she continues to have drainage on Sunday I want to see her back in the office. We switched patient's anticoagulation from Xarelto to aspirin. 8. Encouraged Incentive Spirometry 9. Disposition: Plan will be for discharge home today. Prescriptions will be E scribed to [facility]. Patient will follow-up per postop instructions. She is to continue with dry dressing changes daily and we will not get the incision wet if there is any drainage. She will contact her office on Sunday if she has any continued drainage.
--- NOTE | 2018-06-21 07:00 | PCM.DC.THR ---
Discharge Diet: No Restrictions Discharge Activity: May Not Drive - while taking narcotic pain medications. May shower in (days): 3 - Do not get incision wet if any drainage Ice area for (Minutes): 20 - Every 1-2 hours while awake Weight Bearing Status: Weight bearing as tolerated Elevate: Operative Extremity Additional Activity Instructions:: Wear elastic stockings for 2 weeks. DO NOT use alcohol with narcotic pain medication. DO NOT make important decisions while taking narcotic medication. If you have problems with taking your medication (rash, itching, nausea, etc.) call the office at once. Call your doctor if your incision/area has: Increased Pain/ Swelling, Increased Redness, Foul Smelling Discharge Call your doctor if you observe: Fever of 101 or Higher Change Dressing in (Days):: 1 - Continue with dry dressing changes on a daily basis Additional Instructions: Follow [facility] postop instructions Do not get incision wet if there is any drainage. Please contact our office on June 24 if continued drainage to be seen in the office Allergies/Adverse Reactions: Allergies No Known Allergies Allergy (Verified 06/05/18 10:12) Medications to take at Discharge Omeprazole Magnesium [Prilosec Otc] 40 mg PO QHS 08/30/14 Amitriptyline HCl 50 mg PO QHS 03/05/15 Celecoxib [Celebrex] 200 mg PO QHS 03/05/15 Citalopram [Celexa] 20 mg PO QHS 03/05/15 Rosuvastatin Calcium [Crestor] 10 mg PO DAILY 03/05/15 multivitamin tablet 1 tab PO QAM 08/02/17 Cholecalciferol (Vitamin D3) [Vitamin D3] 5,000 unit PO DAILY 02/01/18 Estrogens, Conjugated [Premarin] 1.25 mg PO DAILY 02/04/18 Gabapentin [Neurontin] 300 mg PO BID 02/04/18 Vitamin B-12 3,000 mg PO DAILY 02/04/18 Fluticasone 0.05% [Flonase Nasal [place]] 1 spray NASAL DAILY 06/05/18 Ranitidine [Zantac] 150 mg PO DAILY 06/05/18 Acetaminophen [Tylenol] 1,000 mg PO Q8 #90 tablet 06/21/18 Aspirin E.C. [Ecotrin] 81 mg PO BIDCM #60 tablet 06/21/18 Oxycodone [Oxyir] 5 - 10 mg PO Q4H PRN PRN 5 Days #60 tablet 06/21/18 Senna/Docusate Sodium [Senokot-S] 2 tablet PO BID #14 tablet 06/21/18 The following prescriptions were given: Oxycodone [Oxyir] 5 - 10 mg PO Q4H PRN PRN 5 Days #60 tablet PRN Reason: Mod-Severe Pain (-03/27) Acetaminophen [Tylenol] 1,000 mg PO Q8 #90 tablet Aspirin E.C. [Ecotrin] 81 mg PO BIDCM #60 tablet Senna/Docusate Sodium [Senokot-S] 2 tablet PO BID #14 tablet Primary Care Physician: Nii Baker MD [Primary Care Provider] - Test Results: Test results from this visit will be discussed in further detail at your follow-up appointment, if applicable. Please Follow Up With: Physical therapy at [facility] When: 06/24/18 Please Follow Up With: Washington Ohara PA-C When: 07/03/18 @ 10:00 am
[2018-06-21] MEDS: Senna/Docusate Sodium 1 Tablet 2 TABLET PO (07:43)
[2018-06-21] MEDS: Famotidine 20 MG Tablet PO (07:43)
[2018-06-21] MEDS: Celecoxib 200 MG Capsule PO (07:43)
[2018-06-21] MEDS: Multivitamins,Therapeutic Tablet 1 TABLET PO (07:43)
[2018-06-21] MEDS: Gabapentin 300 MG Capsule PO (07:44)
[2018-06-21] MEDS: Estrogens,Conj. 1.25 MG Tablet PO (07:44)
[2018-06-21] MEDS: Aspirin E.C. 81 MG Tablet PO (07:51)
[2018-06-21 08:03] VITALS: BP 113/64; PULSE 80; RESP 18; TEMP 36.6; O2SAT 96
--- NOTE | 2018-06-21 12:41 | NURSING ---
This nurse went to put on NEW ABD dressing on current incision to Lt hip and there was what looked like approximately an inch of clear stitch that looked like a fishing line sticking out of the proximal end of the incision. Khloe, Charge Nurse aware, and called Delvin. Delvin informed her and this nurse that it is just part of the sutures and because there is a missing steri strip there as well thats why it is sticking out. New new orders. Delvin is okay to go ahead with current Discharge orders and let go home.
[2018-06-21 13:17] VITALS: BP 120/71; PULSE 96; RESP 18; TEMP 36.6; O2SAT 96
== END 2018-06-21 13:29 | disposition home or self-care (01) | DRG 470 ==
LOC: ACINP 05:29 → MS3 07:49
PROVIDERS: Admitting Provider Specialist; Family Provider Family Medicine; PCP Family Medicine; Referring Provider Specialist; Visit Provider Specialist
PROC: 0SRB04A Replacement of Left Hip Joint with Ceramic on Polyethylene Synthetic Substitute, Uncemented, Open Approach (ICD-10-PCS; CPT 27284; principal; 2018-06-19 06:50)
DX: M16.12 Unilateral primary osteoarthritis, left hip (principal); K21.9 Gastro-esophageal reflux disease without esophagitis; E78.00 Pure hypercholesterolemia, unspecified
CPT/HCPCS: 36415; 73501; 73502; 76000; 80048; 82040; 85025; 85027; 87077; 87081; 93005; 97110; 97161; 97165; 97530; 97535; 99251; C1776; J7050; J7120; A4216; G0463

== ENCOUNTER 2018-09-03 09:00 | Outpatient (RCR) | payer OTHER, SELFPAY ==
[2018-06-19 05:49] VITALS: BMI 34.2
--- NOTE | 2018-06-24 12:52 | HP.PTEVAL ---
Patient's Visit Information VELMA CRUZ is a 58 year old F referred to Physical Therapy by TERRELL Smith with a diagnosis of L MIGUEL. Date of Evaluation: 06/24/18 Physical Therapist: Radames Daniels PT, ATC - Visit Plan Frequency: 2-3x /Week Duration: 4-6 Weeks Plan: L LE stretching and strengthening, balance and proprio, core stab ex's, nustep, and HEP - Subjective Findings: DOS: 06/19/17. Pt reports she had L MIGUEL anterior approach performed at this time. Pt reports she had minor complications after the surgery because her wound wouldnt stop bleeding. Pt reports she had a chronic Hx of L hip pain for years that just progressively worsened. Pt reports she is doing better at this time as she doesnt have the same kind of pain now. Pt reports she has been completing her HEP 2 times per day. Pt reports occasional numbness in L LE, but none at this time. No sleep difficulty at this time. Pt has 2 steps into house that she negotiates one at a time. 2/10 pain at rest, 5/10 at worst (PT in hospital). Pt is not currently employed. - Pain L MIGUEL Pain Intensity (Out of 10): 2 Pain Intensity Range: 5 - Objective Neuro: B LE sensation is WNL to light touch. B patellar reflex= 1/3. MMT: R LE rated at 4/5 due to causing pain in the L hip. L hip 3/5 and painful. Gait: Pt ambulates with a WW. Pt able to ambulate 170 feet with WW until needing to sit down and rest - Goals Goal 1:: Decrease L hip pain x 50% to aid with IADL's Goal Time Frame: 4-6 Weeks Goal 2:: Increase L hip strength x 1 grade to aid with stair negotiation Goal 3:: Pt will be able to ambulate greater than 1000 feet with LRD to aid with community ambulation Goal Time Frame: 4-6 Weeks Goal 4:: I with HEP Goal Time Frame: 4-6 Weeks - Rehabilitation Potential Physical Therapy Diagnosis: Pt has L hip pain, weakness, and limited gait tolerance secondary to L MIGEUL Rehabilitation Potential: Good - Anticipated Interventions Patient/Client Instruction: Educate patient on: Condition, Plan of Care For the Purpose of:: To improve self management Therapeutic Exercise to Include: Strength training, Endurance training, Balance training, Flexibilty training, Dynamic Lumbar Stabilization For the Purpose of:: To decrease pain, To increase ROM, To improve muscle performance and motor function Cryotherapy (ice pack, ice massage): Yes For the Purpose of:: To decrease pain Thank you for the opportunity to evaluate your patient. For Medicare and Medicare HMO plans, please review the plan of care and approve it. It will need to be FAXED BACK to us at [phone] for Medicare purposes. For Medicare only, by signing this I certify the plan of care. Please let me know if there are questions or concerns regarding this plan of care. Physician Signature: Date:
--- NOTE | 2018-07-23 09:58 | HP.PTREVAL ---
TERRELL Smith, It has been my pleasure to treat VELMA CRUZ over the last 10 visits for L MIGUEL. Please see the progress note below for an update on the physical therapy plan of care! Subjective: Pt reports she is finally turning the corner. Feeling better overall now Objective/Function: L hip pain currently at 0/10. Increases to 8/10 at worst. L hip strength is 4-/5 throughout. Pt is able to ambulate 340' with no AD until pain occurs. Pt is progressing well toward Rx goals Plan Plan: Attempt to get 12 more visits approved as skilled therapy is still necessary for L LE strengthening and gait training. Goals Goal 1:: Decrease L hip pain x 50% to aid with IADL's Goal Time Frame: 4-6 Weeks Goal Progress: Progressing Goal 2:: Increase L hip strength x 1 grade to aid with stair negotiation Goal Progress: Progressing Goal 3:: Pt will be able to ambulate greater than 1000 feet with LRD to aid with community ambulation Goal Time Frame: 4-6 Weeks Goal Progress: Progressing Goal 4:: I with HEP Goal Time Frame: 4-6 Weeks Goal Progress: Progressing Anticipated Interventions Patient/Client Instruction: Educate patient on: Condition, Plan of Care For the Purpose of:: To improve self management Therapeutic Exercise to Include: Strength training, Endurance training, Balance training, Flexibilty training, Dynamic Lumbar Stabilization For the Purpose of:: To decrease pain, To increase ROM, To improve muscle performance and motor function Cryotherapy (ice pack, ice massage): Yes For the Purpose of:: To decrease pain Please do not hesitate to contact me at [phone] by phone or if you have questions or concerns regarding this new plan of care! Sincerely, Radames Daniels, PT, ATC
--- NOTE | 2018-09-03 09:56 | HP.PTDCSUM ---
HP - PT D/C Summary It has been my pleasure to treat VELMA CRUZ under orders from TERRELL Smith, for the diagnosis of L MIGUEL for a total of 22 visit(s). Discharge Date: Please see the following information for a summary of their discharge status. - Subjective Subjective: I feel really good today - Pain L MIGUEL Pain Intensity (Out of 10): 0 - Overall Improvement % Improvement: 95 - Objective Objective/Function: L hip pain 0/10. L LE MMT 5/5 throughout with exception of L hip flex= 4/5. Pt can ambulate greater than 1000' I with no AD. Pt is I with HEP. Rx goals achieved - Goals Goal 1:: Decrease L hip pain x 50% to aid with IADL's Goal Progress: Goal Met Goal 2:: Increase L hip strength x 1 grade to aid with stair negotiation Goal Progress: Goal Met Goal 3:: Pt will be able to ambulate greater than 1000 feet with LRD to aid with community ambulation Goal Progress: Goal Met Goal 4:: I with HEP Goal Progress: Goal Met - Plan Plan: discharge - D/C Information If there are questions or concerns regarding this patient's physical therapy, please feel free to call me at [phone]. Thank you for the referral of this patient. Sincerely, Radames Daniels, PT, ATC
== END 2018-09-03 19:00 | disposition home or self-care (01) ==
LOC: PT 09:00
PROVIDERS: Family Provider Family Medicine; PCP Family Medicine; Referring Provider Physician Assistant Surgical; Visit Provider Physician Assistant Surgical
DX: Z96.642 Presence of left artificial hip joint (principal); Z47.1 Aftercare following joint replacement surgery
CPT/HCPCS: 97110; 97161; 97530

== ENCOUNTER → 2020-03-11 09:18 | Outpatient (CLI) | payer OTHER, SELFPAY ==
[2020-02-09 12:29] VITALS: BMI 31.6
[2020-03-11 09:54] LABS: Hematocrit 43.8 % (37-47); Hemoglobin 13.9 g/dL (12.0-15.0); Mean Corp Hgb Conc 31.7 g/dL (32-36); Mean Corpuscular Hgb 29.5 pg (27.0-32.0); Platelet Count 239 K/mm3 (150-450); RBC Distribution Width CV 13.8 % (11.6-14.6); RBC Distribution Width SD 47.7 fl (35.1-43.9); Red Blood Count 4.71 M/mm3 (4.2-5.4); White Blood Count 5.2 K/mm3 (4.4-11.0)
[2020-03-11 10:14] LABS: Vitamin D,25 Hydroxy 49.3 ng/mL
[2020-03-11 10:23] LABS: ALB/GLOB Ratio 1.1 RATIO (0.9-2.4); AST(SGOT) 37 U/L (15-37); Alanine Aminotransfer ALT/SGPT 47 U/L (13-56); Albumin, Serum 3.9 g/dL (3.2-5.0); Alkaline Phosphatase 120 U/L (45-117); Anion Gap 5 (5-15); BUN 11 mg/dL (7-18); Calcium,Total 9.4 mg/dL (8.5-10.1); Chloride 104 mmol/L (98-107); Cholesterol 163 mg/dL (200); Creatinine, Serum 0.69 mg/dL (0.55-1.02); EST Glomerular Filtration Rate 93 mL/min (>60); Est Glom Filt Rate - Afr Amer 112 mL/min (>60); Globulin 3.6 g/dL (2.2-4.2); Glucose 100 mg/dL (74-106); High Density Lipoprotein 56 mg/dL; Potassium 3.8 mmol/L (3.5-5.1); Protein, Total 7.5 g/dL (6.4-8.2); Sodium Level 139 mmol/L (136-145); Thyroid Stim Hormone (TSH) 1.31 uIU/mL (0.358-3.74); Triglycerides 166 mg/dL; Very Low Density Lipoprotein 33 mg/dL (5-40)
== END ==
PROVIDERS: PCP Family Medicine; Referring Provider Family Medicine; Visit Provider Family Medicine
DX: E78.5 Hyperlipidemia, unspecified (principal); E55.9 Vitamin D deficiency, unspecified; K21.9 Gastro-esophageal reflux disease without esophagitis; F32.9 Major depressive disorder, single episode, unspecified
CPT/HCPCS: 36415; 80053; 80061; 82306; 84443; 85027

== ENCOUNTER → 2020-04-15 10:25 | Outpatient (CLI) | payer SELFPAY ==
[2020-02-09 12:29] VITALS: BMI 31.6
--- NOTE | 2020-04-15 10:34 | RAD_ITS ---
HISTORY: neck pain COMPARISON: None FINDINGS: # of images incl. paperwork: 6 XR Spine Cervical 4 or 5 Views: Some calcific plaque is present within the right carotid bulb. All 7 cervical vertebral bodies are identified. No acute cervical spine fracture or subluxation. Normal cervical spine alignment. Odontoid is intact. C4 is anteriorly subluxed on C5 by 2 mm. Some uncovertebral hypertrophy is present, greatest at the C6 vertebral body, on the right. Some facet arthritis is present. RAD/Cerv Spine 4 or 5 Views IMPRESSION: No acute cervical spine fracture or subluxation. Slight anterior subluxation of C4 on C5 by 2 mm. Uncovertebral hypertrophy with facet arthropathy, greatest on the right, at the C5-C6 level does contribute to mild right C5-C6 neural foraminal stenosis. If this is having effect on the nerve, I would expected to be the right C6 nerve. at [id number] Reported and signed by: Tommy Redman MD Electronically Signed: Tommy Redman MD at 5:37 EDT Tel , Service support ,
== END ==
PROVIDERS: PCP Family Medicine; Referring Provider Family Medicine; Visit Provider Family Medicine
DX: M54.2 Cervicalgia (principal)
CPT/HCPCS: 72050

== ENCOUNTER → 2020-11-10 12:09 | Outpatient (CLI) | payer SELFPAY ==
[2020-02-09 12:29] VITALS: BMI 31.6
--- NOTE | 2020-11-10 12:18 | RAD_ITS ---
STUDY: X-RAY - LUMBOSACRAL SPINE REASON FOR EXAM: Female, 60 years old. DORSALGIA TECHNIQUE: 6 view(s) of the lumbosacral spine were obtained. COMPARISON: 12/20/2017 FINDINGS: Normal lumbar lordosis. Mild levoscoliosis centered at L1. There is normal alignment of the vertebrae. No subluxation on the flexion or extension views to suggest instability. Normal vertebral bodies and endplates. Focal disc space narrowing and osteophyte formation at T12/L1 consistent with degenerative disc disease. Normal bilateral sacral ala, sacroiliac joints, and visualized sacrum. Normal visualized soft tissue structures. RAD/L/S Spine w Bend Min 6 Vw IMPRESSION: Mild levoscoliosis with focal degenerative disc disease at T12/L1. No instability. Electronically Signed: Percy Irwin MD at 7:51 EDT Tel , Service support ,
--- NOTE | 2020-11-10 12:18 | RAD_ITS ---
STUDY: X-RAY - PELVIS AND LEFT HIP REASON FOR EXAM: Female, 60 years old. left artificial hip joint TECHNIQUE: 3 views of the pelvis and hip. COMPARISON: Pelvic x-ray dated June 19, 2018 FINDINGS: Stable left hip prosthesis without demonstrated hardware complications. No fractures are present. No avascular necrosis. There is a non-specific bowel gas pattern. Normal visualized soft tissue structures. Normal bilateral iliac wings, sacroiliac joints and visualized sacrum. Normal bilateral superior and inferior pubic rami. Normal pubic symphysis. Normal bilateral ischial tuberosities. Normal right visualized femoral head. Normal acetabulum. Normal right hip joint. RAD/HIP, UNI W/ Pelvis 2-3 Views IMPRESSION: No acute process or hardware complication Electronically Signed: Jose Ramon Valverde MD at 18:16 EDT This report is pending additional review. Service support ,
== END ==
PROVIDERS: PCP Family Medicine; Referring Provider Family Medicine; Visit Provider Family Medicine
DX: M54.9 Dorsalgia, unspecified (principal); Z96.642 Presence of left artificial hip joint
CPT/HCPCS: 72114; 73502

== ENCOUNTER → 2021-05-06 10:44 | Outpatient (CLI) | payer SELFPAY ==
--- NOTE | 2021-05-06 10:51 | BI_ITS ---
MAMMOGRAPHY - BILATERAL SCREENING REASON FOR EXAM: Female, 61 years old. Routine annual screening examination. PERTINENT HISTORY: Sister with breast cancer. TECHNIQUE: Digital bilateral breast chiquis (3D mammographic acquisition) in the CC and MLO projections. 2-D mediolateral oblique (MLO) and craniocaudad (CC) views of both breasts were obtained. CAD: Full Field Digital Mammography with Computer Added Detection was performed. COMPARISON: Comparison is made with prior study dated 01/07/2018 and 12/14/2016. FINDINGS: Breast Composition: There are scattered areas of fibroglandular density. There are no dominant masses or suspicious calcifications. Stable benign-appearing bilateral axillary lymph nodes. No other significant abnormalities are identified. There has been no significant change since the prior study. BI/SCRN MAMM (CAD)W/CHIQUIS BILAT IMPRESSION: Stable bilateral screening mammogram. Yearly follow-up mammogram recommended. (A) ASSESSMENT CATEGORY: BIRADS Category 2: Benign. A letter regarding these results will be sent to the patient by the facility within 30 days. Approximately 10% of breast cancers are not detected by mammography. A normal mammogram should not delay biopsy of a clinically suspicious abnormality. [id number] Electronically Signed: Ramírez Russo MD at 11:55 EST , Service support ,
== END ==
PROVIDERS: PCP Family Medicine; Referring Provider Family Medicine; Visit Provider Family Medicine
DX: Z12.31 Encounter for screening mammogram for malignant neoplasm of breast (principal); Z80.3 Family history of malignant neoplasm of breast
CPT/HCPCS: 77063; 77067

== ENCOUNTER 2021-06-23 15:53 | Outpatient (CLI) | payer OTHER, SELFPAY | END 2021-06-23 23:59 | disposition short-term general hospital (02) | PROVIDERS: PCP Family Medicine; Visit Provider Family Medicine | DX: Z11.52 Encounter for screening for COVID-19 (principal) | CPT/HCPCS: 87635; U0003; U0005 ==

== ENCOUNTER → 2022-02-22 | Outpatient (CLI) | payer OTHER, SELFPAY ==
--- NOTE | 2022-02-22 11:33 | NEURO ---
NCS and/or EMG Patient Report Ordering Doctor: Dm Myers DATE OF SERVICE: 02/22/22 Geovanna presents for electrodiagnostic testing of the left lower limb. She reports pain in the left thigh with numbness on the outer aspect of the left thigh. Symptoms are intermittent. They are worse when walking for greater than 20 minutes. She reports intermittent low back pain. Electrodiagnostic findings: Left peroneal motor nerve demonstrates normal distal latency, amplitude and conduction velocity. Normal left tibial motor response. Normal tibial and peroneal F-wave. Sensory responses demonstrate a prolonged left sural latency. Normal left lateral femoral cutaneous response. Comparison done on the right side also demonstrated a normal right femoral cutaneous response. On needle EMG, 1+ fibrillations are noted in the left vastus medialis, left internal hamstrings. 1+ polyphasic motor units noted in the left internal hamstrings. Decreased recruitment in the left vastus medialis. 1+ fibrillations noted in the left lumbar paraspinals. Electrodiagnostic impression: This is an abnormal study in the left lower limb 1. Electrodiagnostic findings suggestive of acute on chronic left L4 radiculopathy. Consider correlation with lumbar spine imaging. 2. No electrodiagnostic evidence is noted for left lateral femoral cutaneous neuropathy, i.e. meralgia paresthetica. 3. 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 This does not appear to be of significant clinical consequence
== END | disposition home or self-care (01) ==
PROVIDERS: PCP Family Medicine; Referring Provider Orthopaedic Surgery; Visit Provider Orthopaedic Surgery
DX: M47.26 Other spondylosis with radiculopathy, lumbar region (principal)
CPT/HCPCS: 95886; 95910

== ENCOUNTER → 2022-04-07 | Outpatient (CLI) | payer OTHER, SELFPAY ==
[2022-04-07 10:28] LABS: Vitamin D,25 Hydroxy 28.8 ng/mL
[2022-04-07 10:39] LABS: ALB/GLOB Ratio 1.1 RATIO (0.9-2.4); AST(SGOT) 33 U/L (15-37); Alanine Aminotransfer ALT/SGPT 43 U/L (13-56); Alkaline Phosphatase 135 U/L (45-117); Anion Gap 6 (5-15); BUN 17 mg/dL (7-18); BUN/Creat Ratio 23.2 RATIO (10-20); Calcium,Total 9.9 mg/dL (8.5-10.1); Chloride 103 mmol/L (98-107); Cholesterol 164 mg/dL (200); Creatinine, Serum 0.73 mg/dL (0.55-1.02); EST Glomerular Filtration Rate 85 mL/min (>60); Est Glom Filt Rate - Afr Amer 103 mL/min (>60); Globulin 3.6 g/dL (2.2-4.2); Glucose 103 mg/dL (74-106); High Density Lipoprotein 49 mg/dL; Potassium 3.7 mmol/L (3.5-5.1); Protein, Total 7.6 g/dL (6.4-8.2); Sodium Level 137 mmol/L (136-145); Triglycerides 260 mg/dL; Very Low Density Lipoprotein 52 mg/dL (5-40)
== END | disposition home or self-care (01) ==
LOC: MFPLAB 09:15
PROVIDERS: PCP Family Medicine; Referring Provider Family Medicine; Visit Provider Family Medicine
DX: E78.5 Hyperlipidemia, unspecified (principal); E55.9 Vitamin D deficiency, unspecified
CPT/HCPCS: 36415; 80053; 80061; 82306

== ENCOUNTER → 2022-04-26 | Outpatient (CLI) | payer OTHER, SELFPAY ==
[2022-04-26 12:07] LABS: Hematocrit 42.6 % (37-47); Hemoglobin 14.1 g/dL (12.0-15.0); Mean Corp Hgb Conc 33.1 g/dL (32-36); Mean Corpuscular Hgb 30.3 pg (27.0-32.0); Mean Corpuscular Volume 91.6 fL (81-99); Mean Platelet Vol. 10.3 fl (6.2-12.0); Platelet Count 212 K/mm3 (150-450); RBC Distribution Width CV 13.8 % (11.6-14.6); RBC Distribution Width SD 46.3 fl (35.1-43.9); Red Blood Count 4.65 M/mm3 (4.2-5.4); White Blood Count 5.8 K/mm3 (4.4-11.0)
[2022-04-26 12:16] LABS: Prothrombin Time (Protime)PT. 12.6 SECONDS (11.7-14.9)
[2022-04-26 12:17] LABS: Partial Thromboplast Time 26.7 Seconds (24.1-36.2)
[2022-04-26 12:26] LABS: Hemoglobin A1c 6.3 % (3.8-5.6)
== END | disposition home or self-care (01) ==
LOC: MFPLAB 10:05
PROVIDERS: PCP Family Medicine; Referring Provider Family Medicine; Visit Provider Family Medicine
DX: Z01.818 Encounter for other preprocedural examination (principal); R73.01 Impaired fasting glucose
CPT/HCPCS: 36415; 83036; 85027; 85610; 85730

== ENCOUNTER → 2022-05-08 | Outpatient (CLI) | payer OTHER, SELFPAY ==
--- NOTE | 2022-05-08 13:51 | BI_ITS ---
MAMMOGRAPHY - BILATERAL SCREENING REASON FOR EXAM: Female, 62 years old. Routine annual screening examination. PERTINENT HISTORY: Sister with breast cancer. TECHNIQUE: Digital bilateral breast chiquis (3D mammographic acquisition) in the CC and MLO projections. 2-D mediolateral oblique (MLO) and craniocaudad (CC) views of both breasts were obtained. CAD: Full Field Digital Mammography with Computer Added Detection was performed. COMPARISON: 05/06/2021, 01/07/2018 FINDINGS: Breast Composition: There are scattered areas of fibroglandular density. There are no dominant masses or suspicious calcifications. Stable benign-appearing bilateral lymph nodes. No other significant abnormalities are identified. There has been no significant change since the prior study. BI/SCRN MAMM (CAD)W/CIHQUIS BILAT IMPRESSION: Stable bilateral screening mammogram. Yearly follow-up mammogram recommended. (A) ASSESSMENT CATEGORY: BIRADS Category 2: Benign. A letter regarding these results will be sent to the patient by the facility within 30 days. Approximately 10% of breast cancers are not detected by mammography. A normal mammogram should not delay biopsy of a clinically suspicious abnormality. Electronically Signed: Navin Arriaza, at 13:43 EST ,
== END | disposition home or self-care (01) ==
LOC: OPBI 13:49
PROVIDERS: PCP Family Medicine; Visit Provider Family Medicine
DX: Z12.31 Encounter for screening mammogram for malignant neoplasm of breast (principal); Z80.3 Family history of malignant neoplasm of breast
CPT/HCPCS: 77063; 77067

== ENCOUNTER → 2022-05-09 | Outpatient (CLI) | payer OTHER, SELFPAY ==
--- NOTE | 2022-05-10 10:45 | RAD_ITS ---
STUDY: XR Chest 2 Views 05/10/2022 10:42 AM REASON FOR EXAM: Female, 62 years old. CHEST PAIN PREOP COMPARISON: 07/24/2016 TECHNIQUE: XR Chest 2 Views FINDINGS: There is no demonstrated pleural abnormality. Normal heart size. Normal mediastinum. Normal devi. Prominent appearing increased interstitial lung markings. Normal visualized pulmonary arteries. There is atherosclerotic calcification of the aortic arch with tortuosity. There are diffuse degenerative changes of the visualized thoracic spine. There is degenerative osteoarthritis of the bilateral shoulders. There is no demonstrated abnormality of the visualized soft tissue structures of the upper abdomen. RAD/Chest PA and Lateral IMPRESSION: There are no acute findings. Electronically Signed: Radames Perez MD at 16:53 EST ,
--- NOTE | 2022-05-23 15:27 | CASEMGMT ---
RN CM Assessment: TC to pt for initial transition planning/care coordination assessment. Care providers, pharmacy, and demographics verified/updated. Admitting Dx: post lumbar interbody fusion L4-5, decompression PCP:Samuel Specialists:edenilson Myers [facility] Insurance: MMO Prescription Benefit: yes LNOK: Elsi Pettit, ; Jeffrey Pettit, son Living Arrangements: Pt lives with in a single story house with 2 steps to enter. Pt reports she is I in ADL's and denies concerns at home. Transportation: Pt drives self and denies concerns with transportation. Pt will transport her to medical appts post surgery. DME/HHC/SNF: Pt has a cane but does not use. Pt denies hx of HHC or SNF stays. Pt states no concerns with going home at time of dc. Pt states no further concerns/needs. CM to follow. Advised pt to ask CM if any further question/concerns/needs arise, voices understanding. Pt Goal: Home Plan: Home
[2022-05-25] VITALS (8 sets, daily range): BP systolic 143–166; BP diastolic 89–112; PULSE 88–108; RESP 16; TEMP 36.8–36.9; O2SAT 95–96; BMI 34.0
--- NOTE | 2022-05-25 07:19 | PCM.PN.ORT ---
Objective Data Objective Data Vital Signs: Vital Signs Temp Pulse Resp BP Pulse Ox O2 Del Method 98.4 F 91 16 153/102 H 96 Room Air 05/25/22 06:43 05/25/22 06:43 05/25/22 06:43 05/25/22 06:43 05/25/22 06:43 05/25/22 06:43 Oxygen Delivery Method Room Air Weight: 204 lb 2.369 oz Body Mass Index (BMI) 34.0 Lab / Micro Data Micro: Microbiology 05/10/22 10:36 Nasal Secretion Nasal Screen MRSA/MSSA - Final
--- NOTE | 2022-05-25 07:19 | PCM.DC.SUM ---
Providers Primary Care Physician: Dr. Nii Baker MD Reason For Visit: POSTERIOR LUMBAR INTERBODY FUSION L4-5,DECOMPRESSI Medications at Discharge Home Medications omeprazole magnesium 20 mg tablet,delayed release 40 mg PO DAILY GERD 08/30/14 amitriptyline 10 mg tablet 50 mg PO QHS SLEEP 03/05/15 celecoxib 200 mg capsule 200 mg PO QHS ARTHRITIS 03/05/15 rosuvastatin 10 mg tablet 10 mg PO DAILY CHOLESTEROL 03/05/15 multivitamin (Daily Multi-Vitamin tablet) 1 tab PO QAM SUPPLEMENT 08/02/17 cholecalciferol (vitamin D3) 125 mcg (5,000 unit) capsule 5,000 unit PO DAILY SUPPLEMENT 02/01/18 gabapentin 300 mg capsule 300 mg PO BID NERVE PAIN 02/04/18 fluticasone propionate 50 mcg/actuation nasal spray,suspension 1 spray NASAL DAILY NASAL CONGESTION 06/05/18 famotidine 40 mg tablet 40 mg PO QHS GERD 05/09/22 Weight / BMI Weight Weight: 204 lb 2.369 oz Body Mass Index (BMI) 34.0 ABG / Lab / Microbiology Data Microbiology: Microbiology 05/10/22 10:36 Nasal Secretion Nasal Screen MRSA/MSSA - Final Discharge Plan Admission Attending Provider: Dm Myers Primary Care Provider: Nii Baker Discharge Orders/Prescriptions Prescriptions: No Action multivitamin [Daily Multi-Vitamin] tablet 1 tab PO QAM omeprazole magnesium 20 MG tablet,delayed release (DR/EC) 40 mg PO DAILY Label Comments: . celecoxib 200 MG capsule 200 mg PO QHS amitriptyline 10 MG tablet 50 mg PO QHS rosuvastatin 10 MG tablet 10 mg PO DAILY cholecalciferol (vitamin D3) 5,000 UNIT capsule 5,000 unit PO DAILY gabapentin 300 MG capsule 300 mg PO BID fluticasone propionate 1 SPRAY spray,suspension 1 spray NASAL DAILY famotidine 40 mg Tablet 40 mg PO QHS Referrals / Follow Up: Nii Baker MD [Primary Care Provider] - Disposition Disposition (needs filled in before D/C Order can be placed): Home, Self Care
[2022-05-25] MEDS: Lactated Ringers 1,000 ML 15 ML IV (07:20)
--- NOTE | 2022-05-25 08:30 | SUR.PREOP ---
Pt instructed by Dr Samuel about follow up with PCP for BP issues, reason for cancellation of surgery today. BP elevated despite adm of Versed. Pt reports has never had Bp issues in past. Given print out of VS here at hospital for follow as per Dr Samuel. Dr Myers aware and spoke to pt and also-given verbal instructions for plan. Pt given post anesthesia dc instructions to . Pt up with steady gait to BR. Scop patch removed (as applied as preop med) Dr Samuel verbalized and opened up pt IVF of LR total of 1 Liter bolus given.
== END | disposition home or self-care (01) ==
LOC: PAT 06-05 12:38
PROVIDERS: PCP Family Medicine; Referring Provider Orthopaedic Surgery; Visit Provider Orthopaedic Surgery
DX: Z01.818 Encounter for other preprocedural examination (principal)
CPT/HCPCS: 36415; 71046; 87077; 87081; J7120; J2405

== ENCOUNTER → 2022-06-28 | Outpatient (CLI) | payer OTHER, SELFPAY ==
[2022-06-28 10:59] LABS: Anion Gap 7 (5-15); BUN 13 mg/dL (7-18); BUN/Creat Ratio 19.3 RATIO (10-20); Calcium,Total 9.5 mg/dL (8.5-10.1); Chloride 107 mmol/L (98-107); Creatinine, Serum 0.67 mg/dL (0.55-1.02); EST Glomerular Filtration Rate 94 mL/min (>60); Est Glom Filt Rate - Afr Amer 114 mL/min (>60); Glucose 101 mg/dL (74-106); Potassium 4.1 mmol/L (3.5-5.1); Sodium Level 141 mmol/L (136-145)
== END | disposition home or self-care (01) ==
LOC: MFPLAB 09:25
PROVIDERS: PCP Family Medicine; Referring Provider Family Medicine; Visit Provider Family Medicine
DX: I10 Essential (primary) hypertension (principal)
CPT/HCPCS: 36415; 80048

== ENCOUNTER 2022-12-06 13:59 | Outpatient (RCR) | payer OTHER, SELFPAY | END 2022-12-06 19:00 | disposition home or self-care (01) | LOC: OT 13:59 | PROVIDERS: PCP Family Medicine | DX: S62.615D Displaced fracture of proximal phalanx of left ring finger, subsequent encounter for fracture with routine healing (principal) ==

== ENCOUNTER 2023-03-08 06:36 | Inpatient (IN) | payer OTHER, SELFPAY ==
--- NOTE | 2023-02-14 07:47 | EKG12_ITS ---
Test Reason : PRE OP Blood Pressure : / mmHG Vent. Rate : 111 BPM Atrial Rate : 111 BPM P-R Int : 156 ms QRS Dur : 080 ms QT Int : 334 ms P-R-T Axes : 045 -35 060 degrees QTc Int : 454 ms Sinus tachycardia Left axis deviation Anterior infarct , age undetermined Abnormal ECG Confirmed by LOULOU DAWKINS ([id number]), editor sound ELTON LANDEROS ([id number]) on 03/01/2023 10:39:39 AM Referred By: ULYSSES Confirmed By:LOULOU DAWKINS
--- NOTE | 2023-02-14 08:05 | RAD_ITS ---
INDICATION: PREOP EXAMINATION/TECHNIQUE: X-RAY - XR Chest 2 Views COMPARISON: Preoperative. FINDINGS: LINES/DEVICES: None. LUNGS: No consolidation, edema or effusion. No pneumothorax. MEDIASTINUM AND CARDIOVASCULAR STRUCTURES: Cardiac silhouette not enlarged. Central airways and mediastinal contour are unremarkable. Atherosclerosis of aorta. BONES AND SOFT TISSUES: Mild degenerative disease of the spine. RAD/Chest PA and Lateral IMPRESSION: No acute cardiopulmonary disease. Electronically Signed: Mayte Stokes MD at 16:45 EDT ,
[2023-02-14 08:42] LABS: Absolute Lymphocyte Count 2.15 X10^3/uL (0.83-4.51); Absolute Neutrophil Count 2.9 X10^3/uL (2.0-7.7); Basophil# 0.06 X10^3/uL; Eosinophil# 0.21 X10^3/uL; Eosinophils% 3.6 % (0-5); Hematocrit 42.6 % (37-47); Hemoglobin 13.8 g/dL (12.0-15.0); Lymphocyte # 2.15 X10^3/ul (0.83-4.51); Lymphocyte % 37.2 % (19-41); Mean Corp Hgb Conc 32.4 g/dL (32-36); Mean Corpuscular Hgb 30.2 pg (27.0-32.0); Mean Corpuscular Volume 93.2 fL (81-99); Monocyte# 0.43 X10^3/uL; Monocyte% 7.4 % (0-10); NRBC Flagged by Analyzer 0 % (0-5); Neutrophil # 2.91 X10^3/uL (2.7-7.7); Neutrophil % 50.5 % (47-70); Platelet Count 212 K/mm3 (150-450); RBC Distribution Width CV 13.5 % (11.6-14.6); RBC Distribution Width SD 46.4 fl (35.1-43.9); Red Blood Count 4.57 M/mm3 (4.2-5.4); White Blood Count 5.8 K/mm3 (4.4-11.0)
[2023-02-14 09:02] LABS: International Normalized Ratio 0.9; Prothrombin Time (Protime)PT. 12.3 SECONDS (11.7-14.9)
[2023-02-14 09:03] LABS: Partial Thromboplast Time 26.3 Seconds (24.1-36.2)
[2023-02-14 09:10] LABS: Anion Gap 3 (5-15); BUN 15 mg/dL (7-18); BUN/Creat Ratio 22.1 RATIO (10-20); Calcium,Total 9.6 mg/dL (8.5-10.1); Chloride 108 mmol/L (98-107); Creatinine, Serum 0.68 mg/dL (0.55-1.02); EST Glomerular Filtration Rate 93 mL/min (>60); Est Glom Filt Rate - Afr Amer 113 mL/min (>60); Glucose 123 mg/dL (74-106); Potassium 3.6 mmol/L (3.5-5.1); Sodium Level 140 mmol/L (136-145)
[2023-03-08] VITALS (13 sets, daily range): BP systolic 124–171; BP diastolic 82–109; PULSE 84–107; RESP 16–18; TEMP 35.9–37.1; O2SAT 92–100; BMI 34.0
--- NOTE | 2023-03-08 07:00 | RAD_ITS ---
INDICATION: L4-5 POSTERIOR FUSION -- -- 98 SEC, 64.61 MGY, 5 IMAGES EXAMINATION/TECHNIQUE: Multiple spot fluoroscopic images. COMPARISON: 11/10/2020 x-rays. FINDINGS/ RAD/Lumbar Spine 2 or 3 Views IMPRESSION: Spot fluoroscopic intraoperative views of the posterior fixation and discectomy at L4-L5 to be interpreted by the operating surgeon. Total fluoroscopic time of 98 seconds and total radiation dose of 64.61 mGy. Electronically Signed: Dm Figueroa DO at 3:46 EDT ,
[2023-03-08] MEDS: Lactated Ringers 1,000 ML 15 ML IV (07:12)
[2023-03-08] MEDS: Heparin 10,000 UNITS/10 ML Vial 10000 UNITS (07:15)
--- NOTE | 2023-03-08 07:43 | OP.PCM_ITS ---
Problems Associated Problem List Diagnoses (1) Lumbar stenosis: Report of Operation Date of Procedure: 03/08/23 Description of Surgical Findings:: Preop diagnosis: 1. Lumbar stenosis, L4-5 with spondylosis 2. Lumbar degenerative disc disease L4-5 Postop diagnosis: 1. Lumbar stenosis, L4-5 with spondylosis 2. Lumbar degenerative disc disease L4-5 Procedures performed: 1. L4-5 posterior lumbar interbody fusion 2. Insertion of intervertebral biomechanical device x1 3. Structural allograft for spinal fusion 4. L4 bilateral laminectomies, foraminotomies, facetectomies, decompression of bilateral nerve roots 5. L5 bilateral laminectomies, foraminotomies, facetectomies, decompression of bilateral nerve roots 6. L4-5 posterolateral fusion 7. Pedicle screw fixation 8. Local autograft for spinal fusion 9. Neuro monitoring bilateral upper and bilateral lower extremities Statement of medical necessity: The patient is a 62-year-old female with intractable back and leg pain. Image studies confirm the above diagnoses. They have failed conservative treatments to include medications physical therapy and injections and have opted for operative intervention understanding the risk to include but not limited to infection, bleeding, damage to nerves arteries and veins, possibility of spinal fluid leak, nonunion, hardware failure, continued pain, need for further surgery, deep vein thrombosis, pulmonary embolism, heart attack, risk of stroke or . Description of the procedure: The patient was identified in the preoperative holding area. There they received preoperative IV antibiotics and was then transferred to the operative suite. Once in the operative suite after general endotracheal anesthesia was established, the patient was positioned prone on the Wil operating table. All bony prominences were padded accordingly. The l umbar spine was prepped and draped in a standard fashion. Bear hugger's were not turned on until the drapes were placed and sealed with Ioban. A midline incision was made and taken down to the fascia. The fascia was divided and subperiosteal dissection was taken down to the level of the transverse processes L4 and L5 bilaterally. Deep retractors were placed. A bone scalpel was used to make cuts in the lamina and then a series of rongeurs and Kerrisons were used removing the spinous process and lamina of L4. Then facetectomies at L4-5 of greater than 50% were performed as well as foraminotomies decompressing the bilateral nerve roots. Given the severity of the stenosis I needed to perform wide bilateral laminectomies and near complete facetectomies in order to decompress the neural elements thus creating instability necessitating the fusion. I then proceeded with interbody fusion. The nerve roots and dura were identified and retracted medially. A knife was utilized to perform an annulotomy at L4-5. Endplate elevators, curettes, and pituitaries were utilized to remove disc material. Endplates were prepared with a rasp. An appropriate sized intervertebral peek cage device measuring 10 mm was packed with structural allograft and impacted into position completing the posterior lumbar interbody fusion at the L4-5 level. I then proceeded with pedicle screw fixation. Sta rting points were found at the junction of the superior articular process and transverse processes of L4 and L5. A power bur was used for the starting points. Pedicle probes were placed bilaterally and then 6.5 x 50 mm screws were placed bilaterally at L4 and L5. The screws were tested with intraoperative neurophysiologic monitoring and tested within normal limits. Connector rods were applied and secured with set screws. I then proceeded with the posterolateral fusion. This was accomplished by decorticating the transverse processes bilaterally at L4 and L5. This decorticated bone was then bridged with local autograft from the decompression as well as morselized cancellous allograft completing the posterolateral fusion of the L4-5 level. The incision was thoroughly irrigated. Tisseel was placed over the dura as a hemostatic agent. The fascia was closed with #1 Vicryl, subcutaneous with 2-0 Vicryl and skin with 2-0 nylon. A sterile dressing was applied with 4 x 4's ABD and tape. Sponge instrument and needle counts were correct at the end of the case. Neurophysiologic monitoring was maintained at baseline throughout the duration of the case. The patient was extubated and taken to the PACU without incident Surgeon: Dm Myers Type of Anesthesia: General Estimated Blood Loss (mL): 300 cc Fluids Replaced: 2000 cc Grafts/Implants Used: Unified spine Complications None Admit VTE Documentation VTE Present on Admission: No
--- NOTE | 2023-03-08 07:43 | PCM.PN.ORT ---
Subjective Subjective Seen and examined postop. Resting comfortably. Pain controlled. No complaints Objective Data Objective Data Vital Signs: Vital Signs Temp Pulse Resp BP Pulse Ox O2 Del Method 98.7 F 100 18 130/87 H 97 Room Air 03/08/23 07:14 03/08/23 07:14 03/08/23 07:14 03/08/23 07:14 03/08/23 07:14 03/08/23 07:14 Oxygen Delivery Method Room Air Weight: 204 lb 12.8 oz Body Mass Index (BMI) 34.0 Lab / Micro Data 02/14/23 08:25 02/14/23 08:25 Physical Exam Const alert, oriented x3 and no apparent distress General Appearance: cooperative, comfortable and well kempt HEENT normocephalic and head/scalp atraumatic Head and Scalp: normal to inspection Eyes EOMs intact bilaterally and conjunctivae normal Neck full ROM General: normal visual inspection Chest inspection of chest normal and palpation of chest normal Resp normal respiratory effort and normal air movement Cardio regular rate, regular rhythm and peripheral pulses 2+ throughout GI soft to palpation, non-tender and non-distended Back/Spine Back/Spine Narrative: Dressing clean dry and intact, drain in place and functioning Cervical Spine: cervical ROM normal Lumbar Spine / Lower Back: normal to inspection Extremity normal to inspection, full ROM, normal capillary refill, no clubbing, cyanosis or edema and no calf tenderness Skin no rashes or lesions noted General Skin Exam: no breakdown Neuro oriented x3, CN's II-XII intact bilaterally, moves all extremities, no focal motor deficits, no sensory deficits noted and deep tendon reflexes 2+ bilaterally Motor Exam: muscle tone normal throughout Assessment & Plan Assessment/Plan (1) Lumbar stenosis: PLAN: Okay to admit See orders Discharge planning, likely home tomorrow
--- NOTE | 2023-03-08 07:43 | PCM.DC.SUM ---
Providers Date of Admission: 03/08/23 Primary Care Physician: Dr. Nii Baker MD Reason For Visit: 360 POSTERIOR LUMBAR INTERBODY FUSION Diagnosis Discharge Diagnosis (1) Lumbar stenosis: Status: Acute Code(s): M48.061 - Spinal stenosis, lumbar region without neurogenic claudication Medications at Discharge Home Medications omeprazole magnesium 20 mg tablet,delayed release 40 mg PO DAILY GERD 08/30/14 amitriptyline 10 mg tablet 50 mg PO QHS SLEEP 03/05/15 rosuvastatin 10 mg tablet 10 mg PO DAILY CHOLESTEROL 03/05/15 multivitamin (Daily Multi-Vitamin tablet) 1 tab PO QAM SUPPLEMENT 08/02/17 cholecalciferol (vitamin D3) 125 mcg (5,000 unit) capsule 5,000 unit PO DAILY SUPPLEMENT 02/01/18 famotidine 40 mg tablet 40 mg PO QHS GERD 05/09/22 albuterol sulfate 90 mcg/actuation aerosol inhaler 1 inh inhalation PRN PRN shortness of breath or wheezing 02/13/23 amlodipine 5 mg tablet 5 mg PO DAILY BP 02/13/23 cyclobenzaprine 10 mg tablet 10 mg PO PRN MUSCLE SPASMS 02/13/23 hydrocodone-acetaminophen 5-325mg 5mg-325mg 1 tab PO Q6H 7 days #28 tabs 03/08/23 Hospital Course Operations - (L4-5 posterior lumbar interbody fusion, decompression, posterior spinal fusion with instrumentation, use of allograft) Summary of Care Provided Minutes Spent on Discharge: 15 Hospital Course: The patient is a 62-year-old female who underwent L4-5 fusion on 03/08/2023. She was subsequently admitted. The hospitalist was consulted for medical management. The patient progressed well. Her pain was controlled and she was mobilizing well. No significant medical issues were reported. She was subsequently discharged home on 03/10/2023 to follow-up with Dr. Myers in 3 weeks Physical Exam Const alert, oriented x3 and no apparent distress General Appearance: cooperative, comfortable and well kempt Neck full ROM General: normal visual inspection Resp normal respiratory effort and normal air movement Effort and Inspection: able to speak in complete sentences Cardio regular rate and peripheral pulses 2+ throughout GI soft to palpation, non-tender and non-distended Back/Spine Back/Spine Narrative: Dressing clean dry and intact. Incision well approximated with interrupted sutures in place. No tenderness erythema drainage or fluctuance. Cervical Spine: cervical ROM normal Thoracic Spine / Upper Back: normal to inspection Lumbar Spine / Lower Back: normal to inspection Extremity normal to inspection, full ROM, normal capillary refill, no clubbing, cyanosis or edema and no calf tenderness Skin no rashes or lesions noted General Skin Exam: no breakdown Neuro oriented x3, CN's II-XII intact bilaterally, moves all extremities, no focal motor deficits, no sensory deficits noted and deep tendon reflexes 2+ bilaterally Motor Exam: strength 5/5 throughout and muscle tone normal throughout Weight / BMI Weight Weight: 204 lb 12.8 oz Body Mass Index (BMI) 34.0 ABG / Lab / Microbiology Data 03/11/23 12:20 03/11/23 12:20 D/C Instructions Discharge Diet: No restrictions Weight Bearing Status: Weight bearing as tolerated Additional Activity Instructions: Wear back brace at all times. No repetitive bending twisting or lifting greater than 5 pounds Call your doctor if your incision/area has: Continuous Slow Oozing, Sudden Increased Bleeding, Increased Pain/ Swelling, Increased Redness, Foul Smelling Discharge and Swelling at the incision site Call your doctor if you observe: Fever of 101 or Higher, Coldness, Increased Pain, Numbness or Tingling, Change in Color, Inability to urinate, Inability to have a bowel movement, Using more than 1 pad per hour, Shortness of breath, Dizziness, Fainting spells, Swelling in the ankles, Chest pain, Prolonged hiccupping, Increased palpitations (irregular heartbeat), Calf discomfort and Uncontrolled pain Cleanse incision/area with: Do not get Incision Wet and Keep Dressing Clean & Dry Additional Dressing/Incision Instructions: Change dressing daily with iodine gauze and tape. Use waterproof dressing to shower Additional Instructions: 1. During your procedure, you received sedation through your IV. Please follow these instructions for the next 24 hours: Do not drive a motor vehicle, do not drink any alcoholic beverages, and do not sign any legal documents or make personal or business decisions. A responsible adult should stay with you at least 6 hours after the procedure. 2. Keep your surgical site/incision clean and the dressing dry and intact. You may use an ice pack at the surgical site to reduce any swelling or discomfort. 3. Monitor the incision site for any signs or symptoms of infection. Watch for redness, excessive swelling or drainage, or continued pain at the incision site after 3 days. Contact your physician immediately for a fever, chills or a temperature of 101.5? F or greater. 4. Take your medication exactly as prescribed by your physician. Do not attempt to wean yourself off any of your medications even though your pain is improving. This process needs to be carefully monitored by your doctor. Take any antibiotics prescribed exactly as directed and until they are gone. 5. Avoid stretching, bending, pulling, twisting or any sudden movements. Do not bend or twist at the waist. Wear back brace at all times 6. No lifting greater than 5 pounds. 7. Do not operate a motor vehicle, equipment or a power tool while taking pain medication 8. Do not have any manipulation done by a chiropractor or any other physician without first consulting with the surgeon 9. Please contact our office if you are even scheduled for a CT scan or an MRI. 10. Please call us if you have any questions, problems or concerns. Please Follow Up With: Dm Myers DO When: 3 weeks Meaningful Use Info Meaningful Use Diagnoses (Choose all that apply): None applicable Discharge Plan Admission Admit Date/Time: 03/08/23 06:36 Attending Provider: Dm Myers Primary Care Provider: Nii Baker Consulting Providers: Nancie Tovar Instructions Additional Instructions / Restrictions: 1. During your procedure, you received sedation through your IV. Please follow these instructions for the next 24 hours: Do not drive a motor vehicle, do not drink any alcoholic beverages, and do not sign any legal documents or make personal or business decisions. A responsible adult should stay with you at least 6 hours after the procedure. 2. Keep your surgical site/incision clean and the dressing dry and intact. You may use an ice pack at the surgical site to reduce any swelling or discomfort. 3. Monitor the incision site for any signs or symptoms of infection. Watch for redness, excessive swelling or drainage, or continued pain at the incision site after 3 days. Contact your physician immediately for a fever, chills or a temperature of 101.5? F or greater. 4. Take your medication exactly as prescribed by your physician. Do not attempt to wean yourself off any of your medications even though your pain is improving. This process needs to be carefully monitored by your doctor. Take any antibiotics prescribed exactly as directed and until they are gone. 5. Avoid stretching, bending, pulling, twisting or any sudden movements. Do not bend or twist at the waist. Wear back brace at all times 6. No lifting greater than 5 pounds. 7. Do not operate a motor vehicle, equipment or a power tool while taking pain medication 8. Do not have any manipulation done by a chiropractor or any other physician without first consulting with the surgeon 9. Please contact our office if you are even scheduled for a CT scan or an MRI. 10. Please call us if you have any questions, problems or concerns.. Discharge Orders/Prescriptions Prescriptions: New hydrocodone-acetaminophen 5-325 mg tablet 1 tab PO Q6H 7 Days Qty: 28 0RF Continued multivitamin [Daily Multi-Vitamin] tablet 1 tab PO QAM omeprazole magnesium 20 MG tablet,delayed release (DR/EC) 40 mg PO DAILY Patient Comments: . amitriptyline 10 MG tablet 50 mg PO QHS rosuvastatin 10 MG tablet 10 mg PO DAILY cholecalciferol (vitamin D3) 5,000 UNIT capsule 5,000 unit PO DAILY famotidine 40 mg Tablet 40 mg PO QHS albuterol sulfate 90 mcg/actuation HFA aerosol inhaler 1 inh INHALATION PRN PRN (Reason: shortness of breath or wheezing) amlodipine 5 mg tablet 5 mg PO DAILY cyclobenzaprine 10 mg tablet 10 mg PO PRN Patient Comments: TAKE 1 TABLET BY MOUTH THREE TIMES DAILY NEEDED Discontinued celecoxib 200 MG capsule 200 mg PO DAILY gabapentin 300 MG capsule 300 mg PO BID Referrals / Follow Up: Nii Baker MD [Primary Care Provider] - Dm Myers DO [Med Staff - Active Staff] - Disposition Disposition (needs filled in before D/C Order can be placed): Home, Self Care
[2023-03-08] MEDS: Lactated Ringers 1,000 ML 100 ML IV ×3 (07:45→19:28)
[2023-03-08] MEDS: Cefazolin 2 GM in 0.9% Normal Saline (100mL Bag) 100 ML IV (07:52)
[2023-03-08] MEDS: Cefazolin 1 GM/50 ML BAG IV ×3 (08:15→23:06)
[2023-03-08] MEDS: THROMBIN (RECOMBINANT) 20,000 UNIT VIAL 20000 UNIT TOPICAL (11:17)
[2023-03-08] MEDS: Bupivacaine 0.25% 30 ML Vial (11:25)
--- NOTE | 2023-03-08 15:09 | PCM.PN.HOSP ---
Reason for Visit Reason for Visit: Diagnoses Spinal stenosis, lumbar region without neurogenic claudication (03/08/23) Encounter for other preprocedural examination (03/08/23) Subjective Subjective Pain with no acute events postoperatively however she does reports dull aching throb to the operative region and currently rating discomfort 6-7 out of 10 in severity. She notes she did tolerate her meal without issue with no nausea. She denies any paresthesias to the extremities or any radicular pain. Patient denies fevers, chills, nausea, emesis, abdominal pain, chest pain or dyspnea. Objective Data Objective Data Vital Signs: Vital Signs Temp Pulse Resp BP Pulse Ox O2 Del Method O2 Flow Rate 98.6 F 98 18 145/91 H 99 Room Air 3 03/08/23 14:11 03/08/23 14:11 03/08/23 14:11 03/08/23 14:11 03/08/23 14:11 03/08/23 14:11 03/08/23 12:30 Oxygen Flow Rate (L/min) 3 Oxygen Delivery Method Room Air Weight: 204 lb 12.8 oz Body Mass Index (BMI) 34.0 Intake & Output: Intake and Output for Last 24 Hours 03/06/23 03/07/23 03/08/23 23:59 23:59 23:59 Intake Total 1160 / 1160 Output Total 525 / 525 Balance 635 / 635 Lab / Micro Data 02/14/23 08:25 02/14/23 08:25 Physical Exam Narrative Physical Examination: General: Awake, alert, oriented x 3 and cooperative, seated upright in MS bed in no apparent distress, although does report surgical site discomfort. Skin: Normal color, normal turgor, no icterus, no cyanosis except status post OR with dressings in place with no marked drainage. HEENT: AT/NC, EOMI, PERRLA, MMM. Lungs: CTA bilaterally, moderate effort, mild decrease BL bases, no rales, ronchi or wheezing. Heart: Mildly tachycardic with regular rhythm; no gallop, rub audible. Abdomen: Soft, obese, NTTP, ND, mildly hyperactive BS. Extremities: No cyanosis, no clubbing, mild ankle edema. Neurological: Patient awake, alert, oriented as noted, cognitive function intact; pupils equally reactive to light and accommodation, cranial nerves II-XII grossly normal, moving all 4 extremities, no focal deficits, strength moderately to severely global decrease secondary to recent operative intervention. Psychiatric: Affect appears fatigued otherwise normal, no acute evidence of depressive or anxiety feelings. Assessment & Plan Assessment/Plan (1) Lumbar stenosis: PLAN: Plan The patient is a 62 y/o F w/ PMHx: Obesity, OA, GERD, HLD, HTN, Migraines, chronic lumbar back pain with lumbar stenosis with radiculopathy who presents to the [facility] per Dr. Myers for planned L4-5 posterior lumbar interbody fusion, insertion intervertebral biomechanical device, structural allograft for spinal fusion, L4 and L5 bilateral laminectomies/foraminotomies/facetectomies/decompression bilateral nerve roots, L4-5 posterior lateral fusion, pedicle screw fixation, local autograft spinal fusion secondary to ongoing intractable debility and pain despite outpatient conservative treatments and therapies. #1. Intractable lumbar back pain with radiculopathy secondary to lumbar stenosis L4-5 with spondylolisthesis as well as lumbar degenerative disc disease L4-5: Failed conservative therapies and treatments, admitted per Dr. Myers, s/p 03/08/23 L4-5 posterior lumbar interbody fusion, insertion intervertebral biomechanical device, structural allograft for spinal fusion, L4 and L5 bilateral laminectomies/foraminotomies/facetectomies/decompression bilateral nerve roots, L4-5 posterior lateral fusion, pedicle screw fixation, local autograft spinal fusion, post-operative pain management, bowel regimen, DVT Prophylaxis, PT/OT/CM per Orthopedic surgery discretion. #2. Chronic migraines: Not on any chronic medications per review of current list, if necessary may pulse dose with IV Toradol and other agents if intractable. #3. Hypertension: Continue home regimen including amlodipine, PRN hydralazine. #4. Hyperlipidemia: We will continue patient home statin therapy. #5. GERD: We will continue patient home PPI. #6. Obesity: Weight loss and lifestyle changes encouraged. #7. DVT prophylaxis: SCDs, chemoprophylaxis per surgery discretion given recent OR. Charges/Coding Visit Charges Inpatient E&M: 68283 [facility] Hosp L3
[2023-03-08] MEDS: Acetaminophen 500 MG Tablet 1000 MG PO ×2 (16:34→22:07)
[2023-03-08] MEDS: oxyCODONE 5 MG Tablet PO ×2 (17:07→22:06)
[2023-03-08] MEDS: Morphine 4 MG/ML Syringe IV (20:30)
[2023-03-08] MEDS: Gabapentin 300 MG Capsule PO (22:06)
[2023-03-08] MEDS: Famotidine 20 MG Tablet 40 MG PO (22:07)
[2023-03-08] MEDS: Amitriptyline 25 MG Tablet 50 MG PO (22:08)
[2023-03-09 02:11] VITALS: BP 126/83; PULSE 78; RESP 16; TEMP 36.6; O2SAT 96
[2023-03-09] MEDS: Acetaminophen 500 MG Tablet 1000 MG PO ×3 (06:03→20:40)
[2023-03-09] MEDS: oxyCODONE 5 MG Tablet PO ×4 (06:03→20:40)
[2023-03-09 06:11] VITALS: BP 138/76; PULSE 86; RESP 16; TEMP 36.7; O2SAT 97
--- NOTE | 2023-03-09 07:27 | PN.ORTHO_ITS ---
Subjective Subjective Seen and examined postop day 1. Lying in bed resting comfortably. Pain controlled. No complaints. The patient has not yet ambulated with physical therapy but she denies any numbness tingling or weakness. Objective Data Objective Data Vital Signs: Vital Signs Temp Pulse Resp BP Pulse Ox O2 Del Method O2 Flow Rate 98.0 F 86 16 138/76 H 97 Room Air 3 03/09/23 06:11 03/09/23 06:11 03/09/23 06:11 03/09/23 06:11 03/09/23 06:11 03/09/23 06:11 03/08/23 12:30 Oxygen Flow Rate (L/min) 3 Oxygen Delivery Method Room Air Weight: 204 lb 12.8 oz Body Mass Index (BMI) 34.0 Intake & Output: Intake and Output for Last 24 Hours 03/07/23 03/08/23 03/09/23 23:59 23:59 23:59 Intake Total 2475.42 / 4075.42 3400 / 3400 Output Total 2725 / 2725 1350 / 1350 Balance -249.58 / 1350.42 0 / 2050 Lab / Micro Data 02/14/23 08:25 02/14/23 08:25 Radiography Diagnostic Testing: Radiology Impression Lumbar Spine X-Ray 03/08/23 07:00 IMPRESSION: Spot fluoroscopic intraoperative views of the posterior fixation and discectomy at L4-L5 to be interpreted by the operating surgeon. Total fluoroscopic time of 98 seconds and total radiation dose of 64.61 mGy. Electronically Signed: Dm Figueroa DO at 3:46 EDT , Physical Exam Const alert, oriented x3 and no apparent distress General Appearance: cooperative, comfortable and well kempt Neck full ROM General: normal visual inspection Resp normal respiratory effort and normal air movement Effort and Inspection: able to speak in complete sentences Cardio regular rate and peripheral pulses 2+ throughout GI soft to palpation, non-tender and non-distended Back/Spine Back/Spine Narrative: Dressing clean dry and intact. Incision well approximated with interrupted sutures in place. No tenderness erythema drainage or fluctuance Cervical Spine: cervical ROM normal Thoracic Spine / Upper Back: normal to inspection Lumbar Spine / Lower Back: normal to inspection Extremity normal to inspection, full ROM, normal capillary refill, no clubbing, cyanosis or edema and no calf tenderness Skin no rashes or lesions noted General Skin Exam: no breakdown Neuro oriented x3, CN's II-XII intact bilaterally, moves all extremities, no focal motor deficits, no sensory deficits noted and deep tendon reflexes 2+ bila terally Motor Exam: strength 5/5 throughout and muscle tone normal throughout Assessment & Plan Assessment/Plan (1) Lumbar stenosis: PLAN: I had a lengthy discussion with the patient. She has not yet ambulated w [facility] physical therapy and wishes to possibly stay another day and be discharged home tomorrow. In the meantime continue pain control and mobilization as tolerated. Plan for discharge tomorrow.
[2023-03-09 09:33] VITALS: BP 127/73; PULSE 96; RESP 16; TEMP 37.3; O2SAT 95
[2023-03-09] MEDS: Ensure Surgery 237 ML LIQUID PO ×3 (09:50→17:38)
[2023-03-09] MEDS: Gabapentin 300 MG Capsule PO ×2 (09:50→20:44)
[2023-03-09] MEDS: Cholecalciferol (Vit D3) 125 MCG CAPSULE (5,000 UNITS) PO (09:50)
[2023-03-09] MEDS: amLODIPine 5 MG Tablet PO (09:51)
[2023-03-09] MEDS: Atorvastatin Calcium 20 MG Tablet PO (09:51)
[2023-03-09] MEDS: Pantoprazole Sodium 20 MG Tablet 40 MG PO (09:51)
[2023-03-09] MEDS: Multivitamins,Therapeutic Tablet 1 TABLET PO (09:51)
--- NOTE | 2023-03-09 10:50 | CASEMGMT ---
[facility] Face to Face with patient for initial transition planning/care coordination assessment. RN CAN introduced self and role at [facility]. Patient sitting up in chair, alert and oriented. Patient willing to participate in assessment and is able to answer all questions appropriately. Care providers, pharmacy, and demographics verified. Patient wishes to discharge home. Patient states she has no further needs or concerns at this time. CM to follow for discharge planning needs that may arise. PCP:Samuel Specialists:edenilson Myers Pharmacy:[facility] Insurance:MMO Prescription Benefit: yes LNOK:Elsi Pettit, ; Jeffrey Pettit, son Living Arrangements:Pt lives with in a single story home with 2 steps to enter without a rail. Pt is typically I in ADL's. Pt is able to assist as needed post surgery. Pt denies concerns at home. Transportation: Pt drives self and denies concerns with transportation. Pt family will transport pt until she can drive again. DME:cane, does not use- Pt needs FWW, provided a verbal local list of DME companies, pt chose [employer]. HHC:Denies SNF:Denies Disposition Plan: Home Per pt nurse, was to fax a rx for FWW. TC to office to request this to try and get set up prior to weekend, left message with clinical desk.
--- NOTE | 2023-03-09 12:41 | CASEMGMT ---
Social Work SW met with pt to discuss advance directives.? Pt confirms she has completed a living will and health care POA naming her Elsi Pettit.? Pt notified that documents are not on file at [facility] and SW requested they be brought in for scanning into the EMR.? CALIN Humphries
--- NOTE | 2023-03-09 14:22 | PN_ITS ---
Subjective Subjective Patient seen and examined. She had no complaints. She is postop day 1 from posterior lumbar interbody fusion. Pain is fairly well controlled. She had just gotten out of her bed with assistance and sat in a chair. Review of systems otherwise negative. Objective Data Objective Data Vital Signs: Vital Signs Temp Pulse Resp BP Pulse Ox O2 Del Method O2 Flow Rate 99.2 F H 96 16 127/73 H 95 Room Air 3 03/09/23 09:33 03/09/23 09:33 03/09/23 09:33 03/09/23 09:33 03/09/23 09:33 03/09/23 09:33 03/08/23 12:30 Oxygen Flow Rate (L/min) 3 Oxygen Delivery Method Room Air Weight: 204 lb 12.8 oz Body Mass Index (BMI) 34.0 Intake & Output: Intake and Output for Last 24 Hours 03/07/23 03/08/23 03/09/23 23:59 23:59 23:59 Intake Total 2475.42 / 4075.42 3400 / 3400 Output Total 2725 / 2725 1350 / 1350 Balance -249.58 / 1350.42 2049 / 2049 Lab / Micro Data 02/14/23 08:25 02/14/23 08:25 Radiography Diagnostic Testing: Radiology Impression Lumbar Spine X-Ray 03/08/23 07:00 IMPRESSION: Spot fluoroscopic intraoperative views of the posterior fixation and discectomy at L4-L5 to be interpreted by the operating surgeon. Total fluoroscopic time of 98 seconds and total radiation dose of 64.61 mGy. Electronically Signed: Dm Figueroa DO at 3:46 EDT , Physical Exam Const alert, oriented x3 and no apparent distress General Appearance: cooperative and well developed HEENT normocephalic, head/scalp atraumatic and moist oral mucous membranes Eyes PERRL and EOMs intact bilaterally Neck no lymphadenopathy and supple Lymph Lymphatic: no lymphadenopathy noted and no lymphedema noted Resp normal respiratory effort, normal air movement and clear to auscultation bilaterally Cardio regular rate, regular rhythm, S1 normal heart sound, S2 normal heart sound and no murmurs GI normal to inspection, nondistended, normoactive bowel sounds, soft to palpation and non-tender GI Narrative: has abdominal brace in place Extremity normal capillary refill, no clubbing, cyanosis or edema and no calf tenderness Neuro CN's II-XII intact bilaterally, no focal motor deficits, no sensory deficits noted and deep tendon reflexes 2+ bilaterally Psych thought process normal, cooperative and affect normal Appearance: appropriate Assessment & Plan Assessment/Plan (1) Lumbar stenosis: (2) Back pain: QUALIFIERS: Back pain location: low back pain Chronicity: acute Back pain laterality: left Sciatica presence: with sciatica Sciatica laterality: sciatica of left side Qualified Code(s): M54.42 - Lumbago with sciatica, left side PLAN: Plan #Lumbar stenosis of L4 and L5 * s/p posterior lumbar interbody fusion of L4-5 as well as laminectomies and foraminotomies as well as facetectomies and decompression of bilateral nerve roots. * Today's postop day 1. * Management as per spine surgery. * PT OT on board. Incentive spirometry. * Pain management as per primary team. * #Hypertension: On amlodipine. IV hydralazine as needed #Hyperlipidemia: On statin #History of chronic migraines: Not on any chronic meds. Currently stable. #Obesity: BMI is 34.1. Complicates acute care, expected recovery and prognosis. DVT prophylaxis: As per primary team. Charges/Coding Visit Charges Inpatient E&M: 39864 Subs Hosp L2
[2023-03-09 14:53] VITALS: BP 130/75; PULSE 98; RESP 16; TEMP 37; O2SAT 98
[2023-03-09 20:16] VITALS: BP 129/82; PULSE 87; RESP 18; TEMP 37.1; O2SAT 96
[2023-03-09] MEDS: 0.9% Saline Lock 10 ML Syringe IV (20:40)
[2023-03-09] MEDS: Famotidine 20 MG Tablet 40 MG PO (20:41)
[2023-03-09] MEDS: Amitriptyline 25 MG Tablet 50 MG PO (20:41)
[2023-03-10 01:40] VITALS: BP 122/78; PULSE 101; RESP 20; TEMP 37.5; O2SAT 96
[2023-03-10] MEDS: oxyCODONE 5 MG Tablet PO ×4 (01:40→22:22)
[2023-03-10] MEDS: cycloBENZAPRine HCl 10 MG Tablet PO ×2 (01:50→16:07)
[2023-03-10 06:33] VITALS: BP 128/79; PULSE 100; RESP 18; TEMP 36.8; O2SAT 93
[2023-03-10] MEDS: Acetaminophen 500 MG Tablet 1000 MG PO ×3 (06:33→22:25)
[2023-03-10] MEDS: Ensure Surgery 237 ML LIQUID PO ×3 (09:00→16:07)
[2023-03-10] MEDS: Multivitamins,Therapeutic Tablet 1 TABLET PO (09:00)
[2023-03-10] MEDS: Atorvastatin Calcium 20 MG Tablet PO (09:15)
[2023-03-10] MEDS: Pantoprazole Sodium 20 MG Tablet 40 MG PO (09:16)
[2023-03-10] MEDS: amLODIPine 5 MG Tablet PO (09:16)
[2023-03-10] MEDS: Cholecalciferol (Vit D3) 125 MCG CAPSULE (5,000 UNITS) PO (09:16)
[2023-03-10] MEDS: 0.9% Saline Lock 10 ML Syringe IV (09:21)
[2023-03-10] MEDS: Gabapentin 300 MG Capsule PO ×2 (09:21→22:21)
[2023-03-10] MEDS: Senna/Docusate Sodium 1 Tablet 2 TABLET PO (11:23)
[2023-03-10 12:00] VITALS: BP 107/71; PULSE 99; RESP 16; TEMP 37.1; O2SAT 97
--- NOTE | 2023-03-10 13:09 | PN_ITS ---
Subjective Subjective Patient seen and examined. She had no active complaints and had an uneventful night. Review of systems is otherwise negative. Pain is well controlled. Objective Data Objective Data Vital Signs: Vital Signs Temp Pulse Resp BP Pulse Ox O2 Del Method O2 Flow Rate 98.2 F 100 18 128/79 H 93 Room Air 3 03/10/23 06:33 03/10/23 06:33 03/10/23 06:33 03/10/23 06:33 03/10/23 06:33 03/10/23 06:33 03/08/23 12:30 Oxygen Flow Rate (L/min) 3 Oxygen Delivery Method Room Air Weight: 204 lb 12.8 oz Body Mass Index (BMI) 34.0 Intake & Output: Intake and Output for Last 24 Hours 03/08/23 03/09/23 03/10/23 23:59 23:59 23:59 Intake Total 2475.42 / 4075.42 3400 / 3400 Output Total 2725 / 2725 3750 / 3750 Balance -249.58 / 1350.42 -350 / -350 Lab / Micro Data 02/14/23 08:25 02/14/23 08:25 Physical Exam Const alert, oriented x3 and no apparent distress General Appearance: cooperative and well developed HEENT normocephalic, head/scalp atraumatic and moist oral mucous membranes Eyes PERRL and EOMs intact bilaterally Neck no lymphadenopathy and supple Lymph Lymphatic: no lymphadenopathy noted and no lymphedema noted Resp normal respiratory effort, normal air movement and clear to auscultation bilaterally Cardio regular rate, regular rhythm, S1 normal heart sound, S2 normal heart sound and no murmurs GI normal to inspection, nondistended, normoactive bowel sounds, soft to palpation and non-tender GI Narrative: obese abdomen Extremity normal capillary refill, no clubbing, cyanosis or edema and no calf tenderness Skin General Skin Exam: no breakdown Neuro CN's II-XII intact bilaterally, no focal motor deficits, no sensory deficits noted and deep tendon reflexes 2+ bilaterally Motor Exam: strength 5/5 throughout Psych thought process normal, cooperative and affect normal Appearance: appropriate Assessment & Plan Assessment/Plan (1) Lumbar stenosis: (2) Back pain: QUALIFIERS: Back pain location: low back pain Chronicity: acute Back pain laterality: left Sciatica presence: with sciatica Sciatica laterality: sciatica of left side Qualified Code(s): M54.42 - Lumbago with sciatica, left side PLAN: Plan #Lumbar stenosis of L4 and L5 * s/p posterior lumbar interbody fusion of L4-5 as well as laminectomies and foraminotomies as well as facetectomies and decompression of bilateral nerve roots. * Today's postop day 2. * Management as per spine surgery. * PT OT on board. Incentive spirometry. * Pain management as per primary team. * #Hypertension: On amlodipine. IV hydralazine as needed #Hyperlipidemia: On statin #History of chronic migraines: Not on any chronic meds. Currently stable. #Obesity: BMI is 34.1. Complicates acute care, expected recovery and prognosis. DVT prophylaxis: As per primary team. Charges/Coding Visit Charges Inpatient E&M: 58591 Subs Hosp L2
[2023-03-10 18:00] VITALS: BP 113/76; PULSE 93; RESP 18; TEMP 36.9; O2SAT 99
[2023-03-10] MEDS: Amitriptyline 25 MG Tablet 50 MG PO (22:21)
[2023-03-10] MEDS: Famotidine 20 MG Tablet 40 MG PO (22:24)
[2023-03-11] VITALS: BP 127/72; PULSE 93; RESP 18; TEMP 36.9; O2SAT 98
[2023-03-11] MEDS: Acetaminophen 500 MG Tablet 1000 MG PO ×3 (03:57→20:54)
[2023-03-11] MEDS: cycloBENZAPRine HCl 10 MG Tablet PO ×2 (03:57→18:25)
[2023-03-11 03:59] VITALS: BP 128/85; PULSE 86; RESP 18; TEMP 36.7; O2SAT 94
[2023-03-11] MEDS: oxyCODONE 5 MG Tablet PO ×2 (06:59→18:24)
[2023-03-11] MEDS: Cholecalciferol (Vit D3) 125 MCG CAPSULE (5,000 UNITS) PO (10:07)
[2023-03-11] MEDS: Pantoprazole Sodium 20 MG Tablet 40 MG PO (10:07)
[2023-03-11] MEDS: amLODIPine 5 MG Tablet PO (10:08)
[2023-03-11] MEDS: Atorvastatin Calcium 20 MG Tablet PO (10:08)
[2023-03-11] MEDS: Multivitamins,Therapeutic Tablet 1 TABLET PO (10:08)
[2023-03-11] MEDS: Gabapentin 300 MG Capsule PO ×2 (10:09→20:54)
[2023-03-11 10:20] VITALS: BP 123/77; PULSE 97; RESP 18; TEMP 37.2; O2SAT 96
--- NOTE | 2023-03-11 12:17 | PN_ITS ---
Subjective Subjective Patient seen and examined. She complains of feeling dizzy today. She said dizziness is worsened with her sitting up. She denies any chest pain or palpitations and pain is well controlled. Review of systems otherwise negative. Calcium and hemodynamically stable. Objective Data Objective Data Vital Signs: Vital Signs Temp Pulse Resp BP Pulse Ox O2 Del Method O2 Flow Rate 98.9 F 97 18 123/77 H 96 Room Air 3 03/11/23 10:20 03/11/23 10:20 03/11/23 10:20 03/11/23 10:20 03/11/23 10:20 03/11/23 10:20 03/08/23 12:30 Oxygen Flow Rate (L/min) 3 Oxygen Delivery Method Room Air Weight: 204 lb 12.8 oz Body Mass Index (BMI) 34.0 Intake & Output: Intake and Output for Last 24 Hours 03/09/23 03/10/23 03/11/23 23:59 23:59 23:59 Intake Total 3400 / 3400 1640 / 1640 Output Total 3750 / 3750 Balance -350 / -350 1640 / 1640 Lab / Micro Data 02/14/23 08:25 02/14/23 08:25 Physical Exam Const alert, oriented x3 and no apparent distress General Appearance: cooperative and well developed HEENT normocephalic, head/scalp atraumatic and moist oral mucous membranes Eyes PERRL and EOMs intact bilaterally Neck no lymphadenopathy and supple Lymph Lymphatic: no lymphadenopathy noted and no lymphedema noted Resp normal respiratory effort, normal air movement and clear to auscultation bilaterally Cardio regular rate, regular rhythm, S1 normal heart sound, S2 normal heart sound and no murmurs GI normal to inspection, nondistended, normoactive bowel sounds, soft to palpation and non-tender GI Narrative: obese abdomen Extremity normal capillary refill, no clubbing, cyanosis or edema and no calf tenderness Skin General Skin Exam: no breakdown Neuro CN's II-XII intact bilaterally, no focal motor deficits, no sensory deficits noted and deep tendon reflexes 2+ bilaterally Motor Exam: strength 5/5 throughout Psych thought process normal, cooperative and affect normal Appearance: appropriate Assessment & Plan Assessment/Plan (1) Lumbar stenosis: (2) Back pain: QUALIFIERS: Back pain location: low back pain Chronicity: acute Back pain laterality: left Sciatica presence: with sciatica Sciatica laterality: sciatica of left side Qualified Code(s): M54.42 - Lumbago with sciatica, left side PLAN: Plan #Lumbar stenosis of L4 and L5 * s/p posterior lumbar interbody fusion of L4-5 as well as laminectomies and foraminotomies as well as facetectomies and decompression of bilateral nerve roots. * Today's postop day 3. * Management as per spine surgery. * PT OT on board. Incentive spirometry. * Pain management as per primary team. * #Dizziness * patient complaining of feeling dizzy today. Will check orthostatics and hydrate gently as appropriate * #Hypertension: On amlodipine. IV hydralazine as needed #Hyperlipidemia: On statin #History of chronic migraines: Not on any chronic meds. Currently stable. #Obesity: BMI is 34.1. Complicates acute care, expected recovery and prognosis. DVT prophylaxis: As per primary team. SCDs Charges/Coding Visit Charges Inpatient E&M: 58707 Subs Hosp L2
[2023-03-11 12:46] LABS: Absolute Lymphocyte Count 2.35 X10^3/uL (0.83-4.51); Absolute Neutrophil Count 7.8 X10^3/uL (2.0-7.7); Basophil# 0.05 X10^3/uL; Basophil% 0.4 % (0-1); Eosinophil# 0.08 X10^3/uL; Eosinophils% 0.7 % (0-5); Hematocrit 36.2 % (37-47); Lymphocyte # 2.35 X10^3/ul (0.83-4.51); Lymphocyte % 20.9 % (19-41); Mean Corp Hgb Conc 30.4 g/dL (32-36); Mean Corpuscular Hgb 29.3 pg (27.0-32.0); Mean Corpuscular Volume 96.5 fL (81-99); Mean Platelet Vol. 9.8 fl (6.2-12.0); Monocyte# 0.86 X10^3/uL; Monocyte% 7.7 % (0-10); NRBC Flagged by Analyzer 0 % (0-5); Neutrophil % 69.6 % (47-70); Platelet Count 238 K/mm3 (150-450); RBC Distribution Width CV 13.7 % (11.6-14.6); RBC Distribution Width SD 48.9 fl (35.1-43.9); Red Blood Count 3.75 M/mm3 (4.2-5.4); White Blood Count 11.2 K/mm3 (4.4-11.0)
[2023-03-11 13:01] LABS: Anion Gap 6 (5-15); BUN 11 mg/dL (7-18); BUN/Creat Ratio 15.2 RATIO (10-20); Calcium,Total 9.1 mg/dL (8.5-10.1); Chloride 101 mmol/L (98-107); Creatinine, Serum 0.73 mg/dL (0.55-1.02); EST Glomerular Filtration Rate 86 mL/min (>60); Est Glom Filt Rate - Afr Amer 104 mL/min (>60); Estimated Creatinine Clearance 70.98 ml/min; Glucose 105 mg/dL (74-106); Potassium 3.3 mmol/L (3.5-5.1); Sodium Level 139 mmol/L (136-145)
[2023-03-11 13:31] VITALS: BP 123/72; BP 124/80; BP 131/87; PULSE 107; PULSE 136; PULSE 97
[2023-03-11 13:54] VITALS: BP 123/72; PULSE 97; RESP 20; TEMP 37.7; O2SAT 96
[2023-03-11 18:25] LABS: Bacteria 0 SEEN /hpf (None Seen); Mucous, Urine 0 SEEN /hpf (<or=2+); White Blood Cells 0 SEEN /hpf (0-5)
[2023-03-11 18:30] LABS: Color, Urine Yellow (Yellow); Glucose, Dipstick Normal (Normal); Ketone-Dipstick Negative (Negative); Leukocyte Esterase-Dipstick Negative /ul (Negative); Nitrite-Dipstick Negative (Negative); Occult Blood-Urine Negative /ul (Negative); Protein-Dipstick Negative (Negative); Specific Gravity, Urine 1.015 (1.002-1.030); Urine Bilirubin Dipstick Negative (Negative); Urine Clarity Sl. Cloudy (Clear); Urine Urobilinogen 4 mg/dl (Normal); Urine pH 6.5 (5.0 - 8.0)
[2023-03-11 18:38] LABS: Red Blood Cells-Urine 0-5 SEEN /hpf (0-5); Squamous Epithelial Cells - UA 0-5 SEEN /hpf (5-10)
[2023-03-11 18:39] LABS: Amorphous Sediment 1+ URATE
[2023-03-11] MEDS: Amitriptyline 25 MG Tablet 50 MG PO (20:53)
[2023-03-11] MEDS: Famotidine 20 MG Tablet 40 MG PO (20:54)
[2023-03-11 21:00] VITALS: BP 126/83; PULSE 94; RESP 16; TEMP 37.3; O2SAT 95
[2023-03-12] MEDS: oxyCODONE 5 MG Tablet PO ×3 (00:27→11:56)
[2023-03-12 04:00] VITALS: BP 134/90; PULSE 84; RESP 16; TEMP 37; O2SAT 96
[2023-03-12] MEDS: cycloBENZAPRine HCl 10 MG Tablet PO ×2 (05:14→13:26)
[2023-03-12] MEDS: Acetaminophen 500 MG Tablet 1000 MG PO ×2 (05:15→13:26)
[2023-03-12] MEDS: Cholecalciferol (Vit D3) 125 MCG CAPSULE (5,000 UNITS) PO (08:16)
[2023-03-12] MEDS: Pantoprazole Sodium 20 MG Tablet 40 MG PO (08:16)
[2023-03-12] MEDS: amLODIPine 5 MG Tablet PO (08:16)
[2023-03-12] MEDS: Atorvastatin Calcium 20 MG Tablet PO (08:16)
[2023-03-12] MEDS: Multivitamins,Therapeutic Tablet 1 TABLET PO (08:17)
[2023-03-12] MEDS: Famotidine 20 MG Tablet 40 MG PO (08:17)
[2023-03-12] MEDS: Gabapentin 300 MG Capsule PO (08:22)
[2023-03-12 09:27] VITALS: BP 111/70; PULSE 88; RESP 16; TEMP 36.8; O2SAT 94
--- NOTE | 2023-03-12 09:55 | PHA.DC.MC.R ---
Pharmacy [facility] Pharmacy Service has performed discharge medication reconciliation and counseling for this patient. The patient's discharge medication list was reviewed for discrepancies and discrepancies were resolved. The patient was counseled on the following discharge medications and changes in medications for homegoing were reviewed. The Reason for Use, instructions for use, and potential side effects were reviewed for all new medications. The patient's questions regarding all of their medications were answered. 1. Hydrocodone/acetaminophen 5/325 mg Q6H The patient was able to verbally demonstrate an understanding of their discharge medications. Medications at Discharge Home Medications omeprazole magnesium 20 mg tablet,delayed release 40 mg PO DAILY GERD 08/30/14 amitriptyline 10 mg tablet 50 mg PO QHS SLEEP 03/05/15 rosuvastatin 10 mg tablet 10 mg PO DAILY CHOLESTEROL 03/05/15 multivitamin (Daily Multi-Vitamin tablet) 1 tab PO QAM SUPPLEMENT 08/02/17 cholecalciferol (vitamin D3) 125 mcg (5,000 unit) capsule 5,000 unit PO DAILY SUPPLEMENT 02/01/18 famotidine 40 mg tablet 40 mg PO QHS GERD 05/09/22 albuterol sulfate 90 mcg/actuation aerosol inhaler 1 inh inhalation PRN PRN shortness of breath or wheezing 02/13/23 amlodipine 5 mg tablet 5 mg PO DAILY BP 02/13/23 cyclobenzaprine 10 mg tablet 10 mg PO PRN MUSCLE SPASMS 02/13/23 hydrocodone-acetaminophen 5-325mg 5mg-325mg 1 tab PO Q6H 7 days #28 tabs 03/08/23
[2023-03-12 11:23] VITALS: BP 120/80; PULSE 86; RESP 16; TEMP 36.8; O2SAT 96
--- NOTE | 2023-03-12 12:55 | CHAPLAIN ---
Type of Pastoral Visit _x__ Initial Visit ___ Follow-up Visit ___ On-call Visit ___ General Patient Visit ___ Spiritual Assessment ___ Family Conference ___ Bereavement ___ Rapid Response ___ Code Blue ___ Other (describe below) Pastoral Care Referral From _xx__ Patient ___ Family ___ Nurse ___ Physician ___ Reproductive Endocrinologist ___ Registered Nurse Maternity ___ Other (describe below) Sacrament/Intervention _x__ Active listening ___ Anointing ___ Baptist ___ Bereavement ___ Communion ___ Roxanne exploration ___ ___ Life review ___ Prayer ___ Reconciliation ___ Sacrament of Sick ___ Supportive presence ___ Wedding ___ Other (describe below) Pastoral Comments patient indicates that she has been told she will discharge today; pt says that is all that she needs to know at this time; pt has no other concerns or worries as per her report;
--- NOTE | 2023-03-12 16:19 | PCM.HOSP.N ---
Hospitalist Note Evaluated bedside prior to discharge, she reports after she took the oxycodone she felt a little bit dizzy but denied any postural relation or dizziness associated with standing and orthostats were negative yesterday, overall does feel better however and has no other acute complaints. Okay to DC from hospitalist perspective
== END 2023-03-12 15:00 | disposition home or self-care (01) | DRG 455 ==
LOC: ACINP 13:41 → MS3 14:13
PROVIDERS: Student in an Organized Health Care Education/Training Program; Admitting Provider Orthopaedic Surgery; PCP Family Medicine; Referring Provider Orthopaedic Surgery; Visit Provider Orthopaedic Surgery
PROC: 0SG00AJ Fusion of Lumbar Vertebral Joint with Interbody Fusion Device, Posterior Approach, Anterior Column, Open Approach (ICD-10-PCS; CPT 22630; principal; 2023-03-08 07:30)
DX: M48.061 Spinal stenosis, lumbar region without neurogenic claudication (principal); E66.8 Other obesity; M46.96 Unspecified inflammatory spondylopathy, lumbar region; I10 Essential (primary) hypertension; E78.00 Pure hypercholesterolemia, unspecified; M51.16 Intervertebral disc disorders with radiculopathy, lumbar region; M43.16 Spondylolisthesis, lumbar region; M47.26 Other spondylosis with radiculopathy, lumbar region; K21.9 Gastro-esophageal reflux disease without esophagitis; G89.29 Other chronic pain; R42 Dizziness and giddiness; Z68.35 Body mass index [BMI] 35.0-35.9, adult; Z79.899 Other long term (current) drug therapy
CPT/HCPCS: 36415; 71046; 72020; 72100; 76000; 80048; 81001; 85025; 85610; 85730; 93005; 97162; 97530; C1713; J7120; A4216; J2405

== ENCOUNTER → 2023-03-30 | Outpatient (CLI) | payer OTHER, SELFPAY ==
--- NOTE | 2023-03-30 10:54 | VDLE_ITS ---
Reason For Study: Left leg pain RIGHT LEFT CFV is compressible, spontaneous, phasic, GSV is normal. competent and demonstrates normal CFV is compressible, spontaneous, phasic, augmentation. competent, and demonstrates normal Procedure augmentation. This is a venous duplex using B-mode, color FV is compressible, spontaneous, phasic, flow and spectral Doppler. competent and demonstrates normal Exam performed in department. augmentation. A preliminary report was called and/or faxed POP V is compressible, spontaneous, phasic, to Dr. Myers. competent and demonstrates normal augmentation. T/P Trunk is compressible. PTV is compressible. LT PerV is compressible. VL/Venous Duplex US, Unilateral Interpretation Summary Deep veins of the left lower extremity are patent and compressible segmentally. There is no evidence of left lower extremity deep vein thrombosis. Valvular competence appears intac t within the proximal deep venous system on the left . The left great saphenous vein appears patent a nd compressible segmentally. The right common femoral vein is patent and compressible . Ordering Physician: Dm Myers Referring Physician: Jeyosn Baker MD Performed By: Margarette Alas RVT
== END | disposition home or self-care (01) ==
LOC: CVS 10:52
PROVIDERS: PCP Family Medicine; Referring Provider Orthopaedic Surgery; Visit Provider Orthopaedic Surgery
DX: M79.662 Pain in left lower leg (principal)
CPT/HCPCS: 93971

== ENCOUNTER → 2023-05-15 | Outpatient (CLI) | payer OTHER, SELFPAY ==
--- NOTE | 2023-05-15 09:15 | BI_ITS ---
MAMMOGRAPHY - BILATERAL SCREENING REASON FOR EXAM: Female, 63 years old. Routine annual screening examination. PERTINENT HISTORY: Sister with breast cancer. TECHNIQUE: Digital bilateral breast chiquis (3D mammographic acquisition) in the CC and MLO projections. 2-D mediolateral oblique (MLO) and craniocaudad (CC) views of both breasts were obtained. CAD: Full Field Digital Mammography with Computer Added Detection was performed. COMPARISON: Comparison is made with prior study dated May 08, 2022 and May 06, 2021. FINDINGS: Breast Composition: There are scattered areas of fibroglandular density. There are no dominant masses or suspicious calcifications. Stable small benign-appearing bilateral axillary lymph nodes. No other significant abnormalities are identified. There has been no significant change since the prior study. BI/SCRN MAMM (CAD)W/CHIQUIS BILAT IMPRESSION: Stable bilateral screening mammogram. Yearly follow-up mammogram recommended. (A) ASSESSMENT CATEGORY: BIRADS Category 2: Benign. A letter regarding these results will be sent to the patient by the facility within 30 days. Approximately 10% of breast cancers are not detected by mammography. A normal mammogram should not delay biopsy of a clinically suspicious abnormality. [id number] Electronically Signed: Ramírez Russo MD at 14:35 EST ,
== END | disposition home or self-care (01) ==
LOC: OPBI 09:14
PROVIDERS: PCP Family Medicine; Referring Provider Family Medicine; Visit Provider Family Medicine
DX: Z12.31 Encounter for screening mammogram for malignant neoplasm of breast (principal); Z80.3 Family history of malignant neoplasm of breast
CPT/HCPCS: 77063; 77067

== ENCOUNTER → 2023-08-29 | Outpatient (CLI) | payer OTHER, SELFPAY ==
--- NOTE | 2023-08-29 13:15 | RAD_ITS ---
STUDY: X-RAY - LEFT FOOT CLINICAL: Female, 63 years old. Mid foot pain. TECHNIQUE: 3 views of the left foot. COMPARISON: None. FINDINGS: Normal talus, calcaneus, and tarsal bones. Normal visualized subtalar, talonavicular, calcaneocuboid, and tarsal articulations. There is mild degenerative arthrosis of the second and third tarsometatarsal joints with dorsal osseous spurring. Normal metatarsi. There is minimal degenerative arthrosis of the metatarsophalangeal joint of the hallux. Normal tibial and fibular sesamoid bones. Normal interphalangeal joint of the great toe. Normal phalanges of the great toe. Normal second through fifth metatarsophalangeal joints. Normal interphalangeal joints and phalanges of the lesser toes. The soft tissue structures are unremarkable. There is no demonstrated fracture. RAD/Foot min 3 Views IMPRESSION: Mild degenerative arthrosis of the second and third tarsometatarsal joints with dorsal osseous spurring. Minimal degenerative arthrosis of the first MTP joint. Electronically Signed: Tommie Tao MD at 15:39 EDT ,
== END | disposition home or self-care (01) ==
LOC: RAD 13:09
PROVIDERS: PCP Family Medicine; Referring Provider Family Medicine; Visit Provider Family Medicine
DX: M79.672 Pain in left foot (principal)
CPT/HCPCS: 73630

== ENCOUNTER → 2023-11-26 | Outpatient (CLI) | payer OTHER, SELFPAY ==
--- NOTE | 2023-11-26 10:50 | RAD_ITS ---
HISTORY: PAIN. TECHNIQUE: XR Knee Complete 4 Views or More. COMPARISON: None. FINDINGS: BONES : No acute fracture identified. Small degenerative osteophytes of the medial compartment. JOINTS: No dislocation. Joint spaces maintained. Mild joint effusion. RAD/Knee 4 or More Views IMPRESSION: No acute fracture or dislocation identified. Mild osteoarthritis and joint effusion of the right knee. Electronically Signed: Paulina Moser MD at 8:53 EDT ,
== END | disposition home or self-care (01) ==
PROVIDERS: PCP Family Medicine; Referring Provider Family Medicine; Visit Provider Family Medicine
DX: M25.561 Pain in right knee (principal)
CPT/HCPCS: 73564

== ENCOUNTER → 2024-03-24 | Outpatient (CLI) | payer MEDICARE, SELFPAY ==
[2024-03-24 11:54] LABS: Vitamin D,25 Hydroxy 51.2 ng/mL
[2024-03-24 12:04] LABS: AST(SGOT) 30 U/L (15-37); Alanine Aminotransfer ALT/SGPT 37 U/L (13-56); Albumin, Serum 4.1 g/dL (3.2-5.0); Alkaline Phosphatase 169 U/L (45-117); Anion Gap 5 (5-15); BUN 12 mg/dL (7-18); Calcium,Total 9.7 mg/dL (8.5-10.1); Chloride 104 mmol/L (98-107); Cholesterol 166 mg/dL (200); Creatinine, Serum 0.75 mg/dL (0.55-1.02); EST Glomerular Filtration Rate 82 mL/min (>60); Est Glom Filt Rate - Afr Amer 99 mL/min (>60); Globulin 4.2 g/dL (2.2-4.2); Glucose 106 mg/dL (74-106); High Density Lipoprotein 67 mg/dL; Potassium 3.6 mmol/L (3.5-5.1); Protein, Total 8.3 g/dL (6.4-8.2); Sodium Level 139 mmol/L (136-145); Triglycerides 125 mg/dL; Very Low Density Lipoprotein 25 mg/dL (5-40)
== END | disposition home or self-care (01) ==
PROVIDERS: PCP Family Medicine; Referring Provider Family Medicine; Visit Provider Family Medicine
DX: R73.01 Impaired fasting glucose (principal); E55.9 Vitamin D deficiency, unspecified
CPT/HCPCS: 36415; 80053; 80061; 82306; 84443

== ENCOUNTER 2024-04-02 07:21 | Day surgery (SDC) | payer MEDICARE, SELFPAY ==
[2024-04-02] VITALS (7 sets, daily range): BP systolic 92–154; BP diastolic 66–94; PULSE 76–106; RESP 16–18; TEMP 36.7–37; O2SAT 92–98; BMI 33.7
--- NOTE | 2024-04-02 07:28 | PRE.ANES_ITS ---
ASA Classification* ASA Classification ASA Classification: 2 Assessment & Plan Anesthesia* Anesthesia Assessment Anesthesia Assessment: Discussed sedation and/or anesthesia options, risks, benefits, and alternatives with patient/parents/legal guardian/POA. Questions invited. The patient/parents/legal guardian/POA seems to understand and agrees to proceed with anesthesia plan. Reviewed the physical assessment, medical history, allergy history and patient home medications list prior to surgery/procedure/anesthetic and documented any changes. Performed airway and anesthesia risk assessments. Anesthesia Type Anesthesia Type: MAC Anesthesia Focused Assessment* Airway Assessment Mouth opens: >3 cm Mallampati Score: II Focused Labs Anesthesia Preop lab: CBC WBC 11.2 K/mm3 (4.4-11.0) H 03/11/23 12:20 RBC 3.75 M/mm3 (4.2-5.4) L 03/11/23 12:20 Hgb 11.0 g/dL (12.0-15.0) L 03/11/23 12:20 Hct 36.2 % (37-47) L 03/11/23 12:20 Plt Count 238 K/mm3 (150-450) 03/11/23 12:20 CHEMISTRY Potassium 3.6 mmol/L (3.5-5.1) 03/24/24 10:35 Sodium 139 mmol/L (136-145) 03/24/24 10:35 Phosphorus 3.3 mg/dL (2.5-4.9) 12/18/17 08:51 BUN 12 mg/dL (7-18) 03/24/24 10:35 Creatinine 0.75 mg/dL (0.55-1.02) 03/24/24 10:35 Glucose 106 mg/dL (74-106) 03/24/24 10:35 TSH 1.410 uIU/mL (0.358-3.740) 03/24/24 10:35 COAG PT 12.3 SECONDS (11.7-14.9) 02/14/23 08:25 Pre-Assessment Diagnosis/Proposed Procedure Planned Operative Procedure(s): COLONOSCOPY Anesthesia History Anesthesia History - machine quilt stuffer: Anesthesia History - machine quilt stuffer Hx Hospitalization No 03/31/24 13:45 Any Problems With Anesthesia No 03/31/24 13:45 Cholinesterase deficiency No 03/31/24 13:45 You/Your Family Experience No 03/31/24 13:45 fever (hyperthermia) with Relationship Recent Exposure to Contagious No 03/08/23 07:14 Disease Does patient have nerve No 03/31/24 13:45 stimulator Patient instructed to have device shut off --Does patient have Pacemaker or ICD? When Was Last Pacemaker Check QUESTION #4 FULL TEXT: You/Your Family Experience fever (hyperthermia) with Anesthesia Last Oral Intake Last Oral intake: Last Oral Intake NPO since Meds taken in AM with sips of water? Meds patient instructed to take am of surgery PONV PONV - machine quilt stuffer: PONV - machine quilt stuffer Female Yes 03/31/24 13:45 HX of Motion Sickness No 03/31/24 13:45 HX of N/V After Surgery No 03/31/24 13:45 Non-Smoker Yes 03/31/24 13:45 Duration of Surgery greater No 03/31/24 13:45 than 60 minutes Number of Risk Factors 2 03/31/24 13:45 PONV Score Moderate Risk 03/31/24 13:45 Height & Weight Height & Weight: Anesthesia: Height & Weight Height 5 ft 5 in 09/20/23 10:28 Respiratory Assessment Respiratory Assessment - machine quilt stuffer: Respiratory Tract Infection Hx - machine quilt stuffer Hx Respiratory Tract Infection No 03/31/24 13:45 STOP Sleep Apnea STOP Sleep Apnea - machine quilt stuffer: STOP Sleep Apnea - machine quilt stuffer Hx Hypertension Yes: CONTROLLED WITH MEDS 03/31/24 13:45 Hx Sleep Apnea No 03/31/24 13:45 CPAP No 06/19/18 09:10 BIPAP No 06/05/18 10:19 Do you snore loudly (louder Yes 03/31/24 13:45 than talking or can be heard Do you often feel tired/ No 03/31/24 13:45 fatigued/ sleepy during daytime? Has anyone observed you stop No 03/31/24 13:45 breathing during sleep? STOP Results Positive 03/31/24 13:45 QUESTION #5 FULL TEXT : Do you snore loudly (louder than talking or can be heard through closed doors)? 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 Specify any problems Hx of Preganancy in last 3 No 03/31/24 13:45 Months Nurse Filling Out Transfusion [id number] 03/31/24 13:45 & Questions: Date: 03/31/24 03/31/24 13:45 Time: 13:47 03/31/24 13:45 Patient unable to answer at this time (ie. confused, unrespo /Reproduction History /Reproductive History - machine quilt stuffer: /Reproductive Hx- machine quilt stuffer Hx Now Gestational Age (in weeks): EDC: Hx Hx Para Hx Section SAB No 02/13/23 11:13 PFSH Medical History Family history of colon cancer in mother Hx of colonic polyps Post-menopausal Back pain Migraine headache Shortness of breath on exertion Leg cramps History of edema History of stress test History of pain when walking Hypertension Hx of fracture of finger Wears glasses Gastric reflux Non-smoker reconstruction of wrist history of L hip arthroscopy Vitamin D deficiency High cholesterol Arthritis Home Medications ?Medication ?Instructions ?Recorded ?Last Taken ?Type omeprazole magnesium 20 mg 40 mg PO DAILY GERD 08/30/14 03/08/23 History tablet,delayed release amitriptyline 10 mg tablet 50 mg PO QHS SLEEP 03/05/15 05/24/22 History multivitamin (Daily Multi-Vitamin 1 tab PO QAM SUPPLEMENT 08/02/17 05/24/22 History tablet) cholecalciferol (vitamin D3) 125 5,000 unit PO DAILY SUPPLEMENT 02/01/18 05/24/22 History mcg (5,000 unit) capsule famotidine 40 mg tablet 40 mg PO QHS GERD 05/09/22 05/24/22 History albuterol sulfate 90 mcg/actuation 1 inh inhalation PRN PRN shortness 02/13/23 Unknown History aerosol inhaler of breath or wheezing amlodipine 5 mg tablet 5 mg PO DAILY BP 02/13/23 03/08/23 History cyanocobalamin (vitamin B-12) 1,000 mcg PO DAILY 09/20/23 Unknown History 1,000 mcg capsule fluticasone propionate 50 2 spray intranasal DAILY 09/20/23 Unknown History mcg/actuation nasal spray,suspension gabapentin 300 mg capsule 300 mg PO BID 09/20/23 Unknown History lactobacillus combination no.9 4 4,000 mmu cells PO DAILY 09/20/23 Unknown History billion cell capsule (Adult 50 Plus Probiotic) rosuvastatin 40 mg tablet (Crestor) 40 mg PO DAILY 09/20/23 Unknown History Allergy/AdvReac Type Severity Reaction Status Date / Time lisinopril AdvReac Intermediate Itching Verified 03/31/24 13:43 Family History Mother Colon cancer Sister Colon polyps Other Arthritis Asthma Breast cancer Cancer Depression Heart disease Myocardial infarction Surgical History Hx of colonoscopy History of total left hip replacement History of hysterectomy Social History household members: spouse current occupational status: retired Smoking Status: Never smoker alcohol intake: never substance use type: does not use what type of physical activity do you participate in: none Review of Systems (Anesthesia) ROS Narrative System reviewed and no additional complaints, except as documented.
--- NOTE | 2024-04-02 08:25 | HP.PCM_ITS ---
HPI - General General Date of Admission: 04/02/24 Date of Service: 04/02/24 Chief Complaint: Screening colon HPI Narrative VELMA CRUZ, is a 63 F who presents today for screening colonoscopy. She had a colonoscopy approximately 5 years ago. She had sessile polyps in a time. She is not have any abdominal pain, cramping, chest pain or shortness of breath. Overall she is in very good health. [facility] Medical History Family history of colon cancer in mother Hx of colonic polyps Post-menopausal Back pain Migraine headache Shortness of breath on exertion Leg cramps History of edema History of stress test History of pain when walking Hypertension Hx of fracture of finger Wears glasses Gastric reflux Non-smoker reconstruction of wrist history of L hip arthroscopy Vitamin D deficiency High cholesterol Arthritis Home Medications ?Medication ?Instructions ?Recorded ?Last Taken ?Type omeprazole magnesium 20 mg 40 mg PO DAILY GERD 08/30/14 04/02/24 History tablet,delayed release amitriptyline 10 mg tablet 50 mg PO QHS SLEEP 03/05/15 05/24/22 History multivitamin (Daily Multi-Vitamin 1 tab PO QAM SUPPLEMENT 08/02/17 05/24/22 History tablet) cholecalciferol (vitamin D3) 125 5,000 unit PO DAILY SUPPLEMENT 02/01/18 05/24/22 History mcg (5,000 unit) capsule famotidine 40 mg tablet 40 mg PO QHS GERD 05/09/22 04/02/24 History albuterol sulfate 90 mcg/actuation 1 inh inhalation PRN PRN shortness 02/13/23 Unknown History aerosol inhaler of breath or wheezing amlodipine 5 mg tablet 5 mg PO DAILY BP 02/13/23 04/02/24 History cyanocobalamin (vitamin B-12) 1,000 mcg PO DAILY 09/20/23 Unknown History 1,000 mcg capsule fluticasone propionate 50 2 spray intranasal DAILY 09/20/23 Unknown History mcg/actuation nasal spray,suspension gabapentin 300 mg capsule 300 mg PO BID 09/20/23 04/02/24 History lactobacillus combination no.9 4 4,000 mmu cells PO DAILY 09/20/23 Unknown History billion cell capsule (Adult 50 Plus Probiotic) rosuvastatin 40 mg tablet (Crestor) 40 mg PO DAILY 09/20/23 Unknown History Allergy/AdvReac Type Severity Reaction Status Date / Time lisinopril AdvReac Intermediate Itching Verified 04/02/24 07:39 Family History Mother Colon cancer Sister Colon polyps Other Arthritis Asthma Breast cancer Cancer Depression Heart disease Myocardial infarction Surgical History Hx of colonoscopy History of total left hip replacement History of hysterectomy Social History household members: spouse current occupational status: retired Smoking Status: Never smoker alcohol intake: never substance use type: does not use what type of physical activity do you participate in: none ROS Review of Systems ROS Unobtainable: other Constitutional Constitutional: Denies fatigue, fever(s), poor appetite, weight gain or weight loss ENT HEENT: Denies mouth lesions Cardiovascular Cardiovascular: Denies abdominal bloating, abdominal edema or abdominal pain Respiratory/Chest Respiratory/Chest: Denies change in mental status, change in phlegm color, chest congestion or chest tightness Gastrointestinal Gastrointestinal: Denies belching, bloating, change in bowel habits, change in stool character, chewing difficulty, coffee ground emesis, constipation, cramping, diarrhea, dyspepsia, dysphagia, early satiety, excessive flatus, fecal incontinence, heartburn, hematemesis, hematochezia, hemorrhoids, loose stools, melena, nausea, odynophagia, rectal bleeding, tenesmus, vomiting or weight changes Genitourinary Genitourinary: Denies abdominal discomfort, burning urination or itching Musculoskeletal Musculoskeletal: Reports as per HPI; Denies muscle weakness or myalgias Integumentary Integumentary: Denies jaundice Neurologic Neurologic: Denies lack of coordination or weakness Psychiatric Psychiatric: Denies confusion, depression, memory loss, mood swings, paranoia or suicidal ideation Endocrine Endocrinology: Denies systems reviewed and no addt'l complaints, except as documented Hematologic/Lymphatic Hematologic/Lymphatic: Denies anemia, easy bleeding, easy bruising or lymphadenopathy Allergic/Immunologic Allergic/Immunologic: Denies systems reviewed and no addt'l complaints, except as documented Vital Signs Vital Signs Vital Signs: 04/02/24 07:40 04/02/24 07:40 Temperature 98.0 F Temperature Source Temporal Pulse Rate 106 H Respiratory Rate 18 Respiratory Pattern Normal Blood Pressure 154/94 H Blood Pressure Mean 114 Blood Pressure Source Monitor Blood Pressure Position Semi-Fowlers Blood Pressure Location Right Arm Pulse Ox 97 Oxygen Delivery Method Room Air Weight Weight: 202 lb 13.204 oz Body Mass Index (BMI) 33.7 Physical Exam Const alert, oriented x3 and no apparent distress General Appearance: cooperative and well developed HEENT normocephalic, head/scalp atraumatic and moist oral mucous membranes Eyes PERRL and EOMs intact bilaterally Neck no lymphadenopathy and supple Lymph Lymphatic: no lymphadenopathy noted and no lymphedema noted Resp normal respiratory effort, normal air movement and clear to auscultation bilaterally Cardio regular rate, regular rhythm, S1 normal heart sound, S2 normal heart sound and no murmurs GI normal to inspection, nondistended, normoactive bowel sounds, soft to palpation and non-tender GI Narrative: obese abdomen Extremity normal capillary refill, no clubbing, cyanosis or edema and no calf tenderness Skin General Skin Exam: no breakdown Neuro CN's II-XII intact bilaterally, no focal motor deficits, no sensory deficits noted and deep tendon reflexes 2+ bilaterally Motor Exam: strength 5/5 throughout Psych thought process normal, cooperative and affect normal Appearance: appropriate Assessment & Plan Assessment/Plan (1) Encounter for screening for malignant neoplasm of colon: PLAN: She was explained alternatives, risk, benefits include not withstanding bleeding, infection, sepsis, perforation, need for emergent surgery and . She will have an ASA of 3.
--- NOTE | 2024-04-02 09:26 | PCM.POST.ANE ---
Anesthesia: Postop Eval I Current Vital Signs Temperature: 98.6 F Pulse Rate: 76 Blood Pressure: 93/68 Respiratory Rate: 16 Pulse Ox: 98 Oxygen Delivery Method: Room Air Assessment Airway patent: Yes Spontaneous unlabored respirations: Yes Mental status: Awake and Calm nausea: No Vomiting: No Anesthesia Complication: No Fluid Hydration Crystalloid volume administer (ml): 30 Total IV fluid infused: 30 Progress Note Anesthesia document: Postop Eval 1 completed: Yes
--- NOTE | 2024-04-02 17:28 | PCM.POSTANE2 ---
Anesthesia Postop Eval I Sum Postop Eval Completion status Anesthesia document: Postop Eval 1 completed: Yes Anesthesia Postop Eval I Summary Anesthesia Postop Eval I Summary: Anesthesia Postop Eval I: Assessment Summary Airway patent Yes 04/02/24 09:27 [email or web address] Spontaneous unlabored Yes 04/02/24 09:27 [email or web address] respirations Mental status Awake,Calm 04/02/24 09:27 [email or web address] nausea No 04/02/24 09:27 [email or web address] Vomiting No 04/02/24 09:27 [email or web address] Anesthesia Postop Eval I: Fluid Summary Crystalloid volume administer 30 04/02/24 09:27 [email or web address] (ml) Colloids volume administered ( ml) Blood Product volume administered (ml) Total IV fluid infused 30 04/02/24 09:27 [email or web address] Anesthesia Postop Eval I: Summary Notes Anesthesia Complication No 04/02/24 09:27 [email or web address] Anesthesia Complication Comment: Post-operative progress note Anesthesia: Postop Eval II Evaluation Mental status: Awake and Calm Pain Level: 0 nausea: No Vomiting: No Complications Anesthesia Complication: No
--- NOTE | 2024-04-07 15:26 | OP.CCLET_ITS ---
04/02/2024 Nii Baker [address] [place] [address] Re : Colonoscopy procedure for Geovanna Pettit Dear Dr. Baker This procedure was performed on Tuesday, April 02, 2024. My impressions and recommendations are as follows: Impressions : - The entire examined colon is normal on direct and retroflexion views. - No specimens collected. Recommendations : - Discharge patient to home. - Resume previous diet. - Continue present medications. - Repeat colonoscopy in 10 years for screening purposes. My findings are described in the full procedure note, which is enclosed. If I can be of further assistance, please feel free to contact me at . Sincerely, Griffin Renee, 04/02/2024 9:22:26 AM This report has been signed electronically.
--- NOTE | 2024-04-07 15:26 | OP.COLON_ITS ---
Patient Name: Geovanna Pettit Procedure Date: 04/02/2024 8:53 AM Date of : 1960 Age: 63 Procedure: Colonoscopy Indications: Screening for colorectal malignant neoplasm Providers: Griffin Renee DO Referring MD: Nii Baker Medicines: Monitored Anesthesia Care Patient Profile: This is a 63 year old female. Refer to note in patient chart for documentation of history and physical. Last Colonoscopy: more than 10 years ago. Complications: No immediate complications. Procedure: Pre-Anesthesia Assessment: - Prior to the procedure, a History and Physical was performed, and patient medications and allergies were reviewed. The patient is competent. The risks and benefits of the procedure and the sedation options and risks were discussed with the patient. All questions were answered and informed consent was obtained. Patient identification and proposed procedure were verified by the physician in the pre-procedure area. Mental Status Examination: alert and oriented. Airway Examination: normal oropharyngeal airway and neck mobility. Respiratory Examination: clear to auscultation. CV Examination: normal. Prophylactic Antibiotics: The patient does not require prophylactic antibiotics. Prior Anticoagulants: The patient has taken no anticoagulant or antiplatelet agents except for NSAID medication. ASA Grade Assessment: II - A patient with mild systemic disease. After reviewing the risks and benefits, the patient was deemed in satisfactory condition to undergo the procedure. The anesthesia plan was to use monitored anesthesia care (MAC). Immediately prior to administration of medications, the patient was re-assessed for adequacy to receive sedatives. The heart rate, respiratory rate, oxygen saturations, blood pressure, adequacy of pulmonary ventilation, and response to care were monitored throughout the procedure. The physical status of the patient was re-assessed after the procedure. After I obtained informed consent, the scope was passed under direct vision. Throughout the procedure, the patient's blood pressure, pulse, and oxygen saturations were monitored continuously. The Colonoscope was introduced through the anus and advanced to the cecum, identified by appendiceal orifice and ileocecal valve. The colonoscopy was performed without difficulty. The patient tolerated the procedure well. The quality of the bowel preparation was adequate. The ileocecal valve, appendiceal orifice, and rectum were photographed. Scope In: 9:04:52 AM Scope Withdrawal Time 0 hours 9 minutes 42 seconds Scope Out: 9:18:15 AM Total Procedure Duration Time 0 hours 13 minutes 23 seconds Findings: The perianal and digital rectal examinations were normal. The entire examined colon appeared normal on direct and retroflexion views. Impression: - The entire examined colon is normal on direct and retroflexion views. - No specimens collected. Recommendation: - Discharge patient to home. - Resume previous diet. - Continue present medications. - Repeat colonoscopy in 10 years for screening purposes. Procedure Code(s): --- Professional --- G0121, Colorectal cancer screening; colonoscopy on individual not meeting criteria for high risk CPT copyright 2021 [employer]. All rights reserved. The codes documented in this report are preliminary and upon heat and frost insulator review may be revised to meet current compliance requirements. Griffin Renee DO 04/02/2024 9:22:26 AM This report has been signed electronically. Number of Addenda: 0 Note Initiated On: 04/02/2024 8:53 AM
== END 2024-04-02 09:55 | disposition home or self-care (01) ==
LOC: EN 07:22 → AC 07:23
PROVIDERS: PCP Family Medicine; Referring Provider Family Medicine; Visit Provider Internal Medicine Gastroenterology
PROC: 0DJD8ZZ Inspection of Lower Intestinal Tract, Via Natural or Artificial Opening Endoscopic (ICD-10-PCS; CPT 45378; principal; 2024-04-02 08:25)
DX: Z12.11 Encounter for screening for malignant neoplasm of colon (principal); K21.9 Gastro-esophageal reflux disease without esophagitis; I10 Essential (primary) hypertension; E78.00 Pure hypercholesterolemia, unspecified; Z79.899 Other long term (current) drug therapy; Z80.0 Family history of malignant neoplasm of digestive organs
CPT/HCPCS: G0121; A4216; J2405

== ENCOUNTER → 2024-05-20 | Outpatient (CLI) | payer MEDICARE, SELFPAY ==
--- NOTE | 2024-05-20 08:00 | BI_ITS ---
MAMMOGRAPHY - BILATERAL SCREENING REASON FOR EXAM: Female, 64 years old. Routine annual screening examination. PERTINENT HISTORY: Sister with breast cancer. TECHNIQUE: Digital bilateral breast chiquis (3D mammographic acquisition) in the CC and MLO projections. 2-D mediolateral oblique (MLO) and craniocaudad (CC) views of both breasts were obtained. CAD: Full Field Digital Mammography with Computer Added Detection was performed. COMPARISON: Comparison is made with prior study dated May 07, 2023 and May 08, 2022. FINDINGS: Breast Composition: There are scattered areas of fibroglandular density. There are no dominant masses or suspicious calcifications. Stable bilateral fat containing axillary lymph nodes. No other significant abnormalities are identified. There has been no significant change since the prior study. BI/SCRN MAMM (CAD)W/CHIQUIS BILAT IMPRESSION: Stable bilateral screening mammogram. Yearly follow-up mammogram recommended. (A) ASSESSMENT CATEGORY: BIRADS Category 2: Benign. A letter regarding these results will be sent to the patient by the facility within 30 days. Approximately 10% of breast cancers are not detected by mammography. A normal mammogram should not delay biopsy of a clinically suspicious abnormality. [id number] Electronically Signed: Ramírez Russo MD at 9:03 EST ,
== END | disposition home or self-care (01) ==
LOC: OPBI 08:00
PROVIDERS: PCP Family Medicine; Referring Provider Family Medicine; Visit Provider Family Medicine
DX: Z12.31 Encounter for screening mammogram for malignant neoplasm of breast (principal)
CPT/HCPCS: 77063; 77067

== ENCOUNTER → 2024-08-20 | Outpatient (CLI) | payer MEDICARE, SELFPAY | END | disposition home or self-care (01) | PROVIDERS: PCP Family Medicine; Referring Provider Family Medicine; Visit Provider Family Medicine | DX: G47.34 Idiopathic sleep related nonobstructive alveolar hypoventilation (principal) | CPT/HCPCS: 95810 ==

== ENCOUNTER → 2024-09-04 | Outpatient (CLI) | payer MEDICARE, SELFPAY ==
[2024-09-04 11:15] LABS: Bacteria 0 SEEN /hpf (None Seen); Mucous, Urine 0 SEEN /hpf (<or=2+); Squamous Epithelial Cells - UA 0 SEEN /hpf (5-10)
[2024-09-04 12:14] LABS: Color, Urine Yellow (Yellow); Glucose, Dipstick Normal (Normal); Ketone-Dipstick Negative (Negative); Leukocyte Esterase-Dipstick 500 /ul (Negative); Nitrite-Dipstick Negative (Negative); Occult Blood-Urine 150 /ul (Negative); Protein-Dipstick 30 mg/dl (Negative); Urine Bilirubin Dipstick Negative (Negative); Urine Clarity Sl. Cloudy (Clear); Urine Urobilinogen Normal (Normal)
[2024-09-04 12:25] LABS: Red Blood Cells-Urine 0 SEEN /hpf (0-5); White Blood Cells >100 SEEN /hpf (0-5)
== END | disposition home or self-care (01) ==
LOC: MFPLAB 11:15
PROVIDERS: PCP Family Medicine; Referring Provider Family Medicine; Visit Provider Family Medicine
DX: N39.0 Urinary tract infection, site not specified (principal)
CPT/HCPCS: 81001

== ENCOUNTER → 2024-09-12 | Outpatient (CLI) | payer MEDICARE, SELFPAY | END | disposition home or self-care (01) | LOC: SL 10:51 | PROVIDERS: PCP Family Medicine; Visit Provider Family Medicine | DX: Z00.00 Encounter for general adult medical examination without abnormal findings (principal) ==

== ENCOUNTER → 2024-09-19 | Outpatient (CLI) | payer MEDICARE, SELFPAY | END | disposition home or self-care (01) | LOC: LABSPEC 14:32 | PROVIDERS: PCP Family Medicine | DX: N39.0 Urinary tract infection, site not specified (principal) | CPT/HCPCS: 87077; 87086; 87088; 87186 ==

== ENCOUNTER → 2024-09-23 | Outpatient (CLI) | payer MEDICARE, SELFPAY ==
--- NOTE | 2024-09-23 08:25 | BD_ITS ---
PROCEDURE: DEXA BONE DENSITY STUDY 09/23/2024 REASON FOR EXAM: None provided. TECHNIQUE: DXA scan of the lumbar spine and RIGHT hip, using Hologic Horizon W. REFERENCE LINKS: ISCD Adult Positions COMPARISON: Measurements obtained 12/14/2016 are available on the imaging unit for comparison purposes but the images themselves are not available for review. FINDINGS: LUMBAR SPINE: Bone mineral denisty, L1-L3: 0.846 g/cm??? T-score: -1.6 RIGHT FEMORAL NECK: Bone mineral denisty: 0.778 g/cm??? T-score: -0.6 RIGHT TOTAL HIP: Bone mineral denisty: 0.976 g/cm??? T-score: 0.3 FRAX*: 10 Year Probability of Fracture: Major Osteoporotic Fracture(1): 12.0% Hip Fracture(2): 0.6% These may be overestimates given that they are based on the bone mineral density of the RIGHT hip rather than the lowest measured bone mineral density which was obtained within the lumbar spine. *FRAX is a trademark of the [employer]'s [place] for Metabolic Bone Disease, World Health Organization (WHO) Collaborating [place]. 1-Major Osteoporotic Fracture: Clinical Spine, Forearm, Hip or Shoulder. 2-The 10-year probability of fracture may be lower than reported if the patient has received treatment. The National Osteoporosis Foundation recommends that medical therapy be considered in postmenopausal women and men, age 50 and older, with a: * hip or vertebral fracture * T-score less than or equal to -2.5 in the spine or hip * T-score between -1.0 and -2.5 and FRAX equal to or less than 3 percent for hip fracture or equal to or less than 20 percent for major osteoporotic fracture. World Health Organization criteria for BMD interpretation classify patients as Normal (T-score at or above -1.0), Osteopenic (T-score between -1.0 and -2.5), or Osteoporotic (T-score at or below -2.5). BD/Dexa Bone Density Study IMPRESSION: 1. Osteopenia. 2. Since 12/14/2016, there has been a decrease of 15.3% in the bone mineral den sity of the lumbar spine. 3. Additional description as above. Reading Location: [id number]
== END | disposition home or self-care (01) ==
PROVIDERS: PCP Family Medicine; Referring Provider Family Medicine; Visit Provider Family Medicine
DX: Z13.820 Encounter for screening for osteoporosis (principal); N95.9 Unspecified menopausal and perimenopausal disorder
CPT/HCPCS: 77080

== ENCOUNTER 2024-09-29 08:52 | Outpatient (CLI) | payer MEDICARE, SELFPAY ==
--- NOTE | 2024-09-29 08:54 | AAAS_ITS ---
Reason For Study Reason For Study: AAA Screening Aorta Measurements Aorta Doppler Measurements Proximal aorta measures1.69 x 1.65cm. in cross-sectional Peak systolic flow velocities within the proximal aorta axis. measure 106.7 cm/sec. Proximal aorta measures1.63cm. in longitudinal axis. Peak systolic flow velocities within the mid aorta measure Mid aorta measures1.36 x 1.41cm. in cross-sectional axis. 94.1 cm/sec. Mid aorta measures1.50cm. in longitudinal axis. Peak systolic flow velocities within the distal aorta Distal aorta measures1.48 x 1.45cm. in cross-sectional axis.measure 110.4 cm/sec. Distal aorta measures1.55cm. in longitudinal axis. Left Iliac Artery Left iliac artery measures 1.15 x 1.15 cm. in the cross-sectional axis. Left iliac artery measures 1.17 cm. in the longitudinal axis. Peak systolic velocity in the left iliac artery measures 106.7 cm/sec. Right Iliac Artery Right iliac artery measures 0.84 x 0.84 cm. in the cross-sectional axis. Right iliac artery measures 0.95 cm. in the longitudinal axis. Peak systolic velocity in the right iliac artery measures 90.4 cm/sec. Procedure Aorta IVC Iliac vasculature or bypass grafts [id number]. Exam performed in department. VL/AAA Screening Interpretation Summary The dimensions of the intra-abdominal aorta are normal, without evidence of ane urysmal dilatation. The iliac arteries are also normal in caliber bilaterally. The intra-abdominal aorta and iliac art eries appear patent, demonstrating normal, pulsatile arterial flow and normal peak systolic velocities. Ordering Physician: Jeyson Baker Referring Physician: Jeyson Baker Performed By: Margarette Alas RVT
== END 2024-09-29 23:59 | disposition home or self-care (01) ==
LOC: CVS 08:53
PROVIDERS: PCP Family Medicine; Referring Provider Family Medicine; Visit Provider Family Medicine
DX: Z13.6 Encounter for screening for cardiovascular disorders (principal)
CPT/HCPCS: 76706

== ENCOUNTER → 2024-12-01 | Outpatient (CLI) | payer MEDICARE, SELFPAY ==
--- NOTE | 2024-12-01 16:33 | RAD_ITS ---
PROCEDURE: KNEE 4 OR MORE VIEWS 12/01/2024 REASON FOR EXAM: PAIN TECHNIQUE: KNEE 4 OR MORE VIEWS COMPARISON: None. FINDINGS: Mild osteopenia of the visualized bones. Degenerative joint disease. No fracture or dislocation is seen. No lytic or blastic bone lesion is noted. RAD/Knee 4 or More Views IMPRESSION: No radiographic evidence of an acute bone abnormality. Reading [facility]
== END | disposition home or self-care (01) ==
LOC: MTRAD 16:31
PROVIDERS: PCP Family Medicine; Referring Provider Family Medicine; Visit Provider Family Medicine
DX: M25.562 Pain in left knee (principal)
CPT/HCPCS: 73564

== ENCOUNTER 2025-01-12 08:59 | Outpatient (CLI) | payer MEDICARE, SELFPAY ==
--- NOTE | 2025-01-12 09:03 | RAD_ITS ---
PROCEDURE: HIP, UNI W/ PELVIS 2-3 VIEWS 01/12/2025 REASON FOR EXAM: R HIP PAIN TECHNIQUE: HIP, UNI W/ PELVIS 2-3 VIEWS COMPARISON: None. FINDINGS: Status post left hip arthroplasty. No perihardware lucency. L4-5 posterior fusion. [id number] degenerative changes of the right knee. RAD/HIP, UNI W/ Pelvis 2-3 Views IMPRESSION: Intact left hip arthroplasty. [id number] right hip osteoarthrosis. Reading Location: [id number]
== END 2025-01-12 23:59 | disposition home or self-care (01) ==
LOC: MTRAD 09:01
PROVIDERS: PCP Family Medicine; Referring Provider Family Medicine; Visit Provider Family Medicine
DX: M70.61 Trochanteric bursitis, right hip (principal)
CPT/HCPCS: 73502

== ENCOUNTER 2025-03-02 06:58 | Observation (INO) | payer MEDICARE, SELFPAY ==
--- NOTE | 2025-02-04 08:27 | EKG12_ITS ---
Test Reason : PREOP Blood Pressure : */* mmHG Vent. Rate : 93 BPM Atrial Rate : 93 BPM P-R Int : 170 ms QRS Dur : 84 ms QT Int : 360 ms P-R-T Axes : 48 -29 34 degrees QTcB Int : 447 ms Normal sinus rhythm Minimal voltage criteria for LVH, may be normal variant Borderline ECG Confirmed by DIPTI MARCUS, CORNELIA ([id number]), news videotape editor JONATAN MORRIS ([id number]) on 02/05/2025 6:30:51 AM Referred By: Domenic Pham Confirmed By: CORNELIA RESENDEZ MD
[2025-02-12 12:17] LABS: Hematocrit 44.9 % (37-47); Hemoglobin 14.7 g/dL (12.0-15.0); Immature Granulocytes Count 0.030 X10^3/uL (0.0-0.0); Mean Corp Hgb Conc 32.7 g/dL (32-36); Mean Corpuscular Volume 92.4 fL (81-99); Mean Platelet Vol. 9.9 fl (6.2-12.0); NRBC Flagged by Analyzer 0 % (0-5); Platelet Count 244 K/mm3 (150-450); RBC Distribution Width CV 14.2 % (11.6-14.6); RBC Distribution Width SD 48.3 fl (35.1-43.9); Red Blood Count 4.86 M/mm3 (4.2-5.4); White Blood Count 6.6 K/mm3 (4.4-11.0)
[2025-02-12 13:06] LABS: Albumin, Serum 4.5 g/dL (3.4-4.8); Anion Gap 13 (5-15); BUN 13 mg/dL (4-19); BUN/Creat Ratio 16.2 RATIO (10-20); Calcium,Total 10.2 mg/dL (7.6-11.0); Carbon Dioxide 24.5 mmol/L (21.0-32.0); Chloride 103 mmol/L (98-108); Glucose 106 mg/dL (70-99); Magnesium 2.3 mg/dL (1.5-2.2); Potassium 4.0 mmol/L (3.3-5.1)
--- NOTE | 2025-02-12 19:50 | PAT.ANE_ITS ---
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 When Was Last Pacemaker Check QUESTION #4 FULL TEXT: You/Your Family Experience fever (hyperthermia) with Anesthesia Last Oral Intake Last Oral intake: Last Oral Intake NPO since Meds taken in AM with sips of water? Meds patient instructed to take am of surgery PONV PONV - bus person dishwasher: PONV - bus person dishwasher Female Yes 02/11/25 08:49 HX of Motion Sickness No 02/11/25 08:49 HX of N/V After Surgery No 02/11/25 08:49 Non-Smoker Yes 02/11/25 08:49 Duration of Surgery greater Yes 02/11/25 08:49 than 60 minutes Number of Risk Factors 3 02/11/25 08:49 PONV Score Moderate Risk 02/11/25 08:49 Height & Weight Height & Weight: Anesthesia: Height & Weight Height 5 ft 5 in 07/05/24 09:07 Respiratory Assessment Respiratory Assessment - bus person dishwasher: Respiratory Tract Infection Hx - bus person dishwasher Hx Respiratory Tract Infection No 02/11/25 08:49 STOP Sleep Apnea STOP Sleep Apnea - bus person dishwasher: STOP Sleep Apnea - bus person dishwasher Hx Hypertension Yes: CONTROLLED WITH MEDS 02/11/25 08:49 Hx Sleep Apnea No 02/11/25 08:49 CPAP No 02/11/25 08:49 BIPAP No 02/11/25 08:49 Do you snore loudly (louder No 02/11/25 08:49 than talking or can be heard Do you often feel tired/ No 02/11/25 08:49 fatigued/ sleepy during daytime? Has anyone observed you stop No 02/11/25 08:49 breathing during sleep? STOP Results Negative 02/11/25 08:49 QUESTION #5 FULL TEXT : Do you snore loudly (louder than talking or can be heard through closed doors)? 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 Specify any problems Hx of Preganancy in last 3 No 02/11/25 08:49 Months Nurse Filling Out Transfusion VCHRISTIN 02/11/25 08:49 & Questions: Date: 02/11/25 02/11/25 08:49 Time: 08:50 02/11/25 08:49 Patient unable to answer at this time (ie. confused, unrespo /Reproduction History /Reproductive History - bus person dishwasher: /Reproductive Hx- bus person dishwasher Hx Now No 02/11/25 08:49 Gestational Age (in weeks): EDC: Hx Hx Para Hx Section SAB No 02/11/25 08:49 PFSH Medical History (Updated 07/05/24 @ 09:20 by TERRELL Álvarez) Family history of colon cancer in mother Hx of colonic polyps Post-menopausal Back pain Migraine headache Shortness of breath on exertion Leg cramps History of edema History of stress test History of pain when walking Hypertension Hx of fracture of finger Wears glasses Gastric reflux Non-smoker reconstruction of wrist history of L hip arthroscopy Vitamin D deficiency High cholesterol Arthritis Home Medications ?Medication ?Instructions ?Recorded ?Last Taken ?Type amitriptyline 10 mg tablet 50 mg PO QHS SLEEP 03/05/15 05/24/22 History multivitamin (Daily Multi-Vitamin 1 tab PO QAM SUPPLEM ENT 08/02/17 05/24/22 History tablet) cholecalciferol (vitamin D3) 125 5,000 unit PO DAILY S UPPLEMENT 08/17/18 12/07/22 History mcg (5,000 unit) capsule albuterol sulfate 90 mcg/actuation 1 inh inhalation ND N PRN shortness 02/13/23 Unknown History aerosol inhaler of breath or wheezing amlodipine 5 mg tablet 5 mg PO DAILY BP 02/13/23 History gabapentin 300 mg capsule 300 mg PO BID 09/20/2304/02 History rosuvastatin 40 mg tablet (Crestor) 40 mg PO DAILY 10/09 Unknown History calcium 500 mg (as 1 tab PO DAILY 02/11/25 Unkn own History carbonate)-vitamin D3 10 mcg (400 unit) tablet (Calcium 500 + D) celecoxib 200 mg capsule 200 mg PO DAILY 02/11/25 Unk nown History citalopram 20 mg tablet 20 mg PO DAILY 02/11/25 Unkn own History pantoprazole 40 mg tablet,delayed 40 mg PO DAILY 02/11 Unknown History release semaglutide 0.25 mg or 0.5 mg (2 0.25 mg subcut QWEEK 02/11/25 Unknown History mg/1.5 mL) subcutaneous pen injector (Virtual View App) Allergy/AdvReac Type Severity Reaction Status Date / Time lisinopril AdvReac Intermediate Itching Verified 02/11/25 08:37 Family History Mother Colon cancer Sister Colon polyps Other Arthritis Asthma Breast cancer Cancer Depression Heart disease Myocardial infarction Surgical History (Updated 02/11/25 @ 08:49 by Joy Alejandra) History of lumbar fusion Hx of colonoscopy History of total left hip replacement History of hysterectomy Social History household members: spouse current occupational status: retired Smoking Status: Never smoker alcohol intake: never substance use type: does not use what type of physical activity do you participate in: none Audit: Pertinent Findings Pertinent Findings EKG Perinent findings: February 04, 2025. Normal sinus rhythm. Minimal voltage criteria for LVH may be normal variant. Recommendation Anesthesia Recommendation Anesthesia recommendation: OPTIMIZED for anesthesia
--- NOTE | 2025-02-25 22:31 | PCM.HP.BLA ---
History and Physical History and Physical? Patient Name: Geovanna Pettit : 1960From:? RIZWAN COSME PA-C? DATE OF PRE-OPERATIVE EXAM: 02/25/2025 DATE OF SURGERY:? 03/02/2025 SCHEDULED PROCEDURE:? Direct anterior right total hip arthroplasty HISTORY OF PRESENT ILLNESS: Preoperative history and physical exam was performed on February 25, 2025.? This is a 64-year-old female who is been having ongoing pain with her right hip.? She does have history of a previous left total hip arthroplasty by Dr. Domenic Pham June 19, 2018.? She is doing well from that procedure.? Patient's pain is located in the groin and buttock region.? She gets catching sensation in the right hip.? Her pain as being constant, sharp, stabbing.? Patient has difficulty with shopping.? Difficulty with other activities of daily living including putting on her socks and shoes.? She has had to use slip ons due to this difficulty.? She has restless at night time.? She has attempted rest, ice, heat, elevation with no relief.? She has tried physical therapy and home exercises without relief.? She has tried oral medications including nonsteroidal anti-inflammatory, Tylenol, and tramadol.? Patient denies past history of surgery on the right hip.? She has had to use a cane or walker over the past 4 weeks.? After failing conservative measures and discussing all treatment options was Dr. Domenic Pham, the patient does wish to proceed with a direct anterior right total hip arthroplasty.? She has obtain surgical clearance from the primary care provider Dr. Baker.? She denies past history of DVT or pulmonary embolism.? No recent chest pain, shortness of breath, fevers chills or recent infections. REVIEW OF SYSTEMS: Review Of Systems: Constitutional: Reports anxiety, but denies anorexia, change in appetite, fever, difficulty sleeping, weight change. Cardiovasular: Denies chest pain, heart murmur, irregular heartbeat and peripheral vascular disease. Respiratory: Denies asthma, cough, pneumonia, sleep apnea, shortness of breath, tuberculosis and wheezing. Gastrointestinal: Reports heartburn, but denies constipation, diarrhea, nausea, rectal itching, bloody stools and vomiting. Genitourinary: Denies incontinence. Musculoskeletal: Reports gait disturbance, leg swelling, pain, trouble walking and weakness. Skin: Denies Raynaud's, history of shingles and tattoo. Neurological: Reports numbness/tingling but denies ambulatory dysfunction, dizziness and tremor. Psychiatric: Reports anxiety, but denies depression, insomnia, mental illness and stress. Hematologic/Lymphatic: Denies anemia, bleeding/bruising tendency and past transfusion. Reviewed and updated. PAST MEDICAL HISTORY: Advance Care Plan: Other Directive, LIVING WILL Effective Date: 05/05/2022 Other Directive, POA Effective Date: 05/05/2022 Past Medical History: Medical Problems: Arthritis, Acid Reflux, Hypercholesterolemia, High Blood Pressure, hyperlipidemia, anxiety, cervical degenerative disc disease, impaired fasting glucose Accidents: RT Wrist FX - (1999) LT Ring Finger FX - (10/2022) Surgical Hx: RT Wrist Reconstruction - (1999) [facility] Hysterectomy - (2012) [facility] LT Hip Arthroscopy - (2015) DR BOSWELL @ [facility] LT THR - (06/19/2018) SAW @ [facility] ORIF - (10/2022) RING FINGER - DR. DIAZ @ [facility] L4-5 Posterior Lumbar Interbody Fusion w/ Posterolateral Fusion - (03/08/2023) Dr Ermelinda Myers @ [facility] Anesthesia Complications: None Assistive Devices: Glasses Reviewed and updated. 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 Personal Habits:? Cigarette Use: Never Smoked Cigarettes.Smokeless Tobacco: Never Used Smokeless Tobacco.E-Cigarette Use: Never used.Alcohol: Occasionally - once to twice a year.Drug Use: Denies Use.Enjoy Exercising: Exercises 1-3 x/month. Reviewed and updated. VITALS: Ht: 65 Wt: 193lb Wt k.545 BMI: 32.1 BP: 126/80 Pulse: 110 Resp: 19 T: 97.7 T: 36.5C Pain Level: 9/10 O2SatR: 96 ALLERGIES: Lisinopril? MEDICATIONS: Mupirocin 2 % use qtip and apply inside each nostril twice a day until the day of surgery, Tramadol HCL 50 mg 1-2 by mouth every 8 hours as needed pain, Albuterol Sulfate HFA 108 (90 Base) mcg/Act as needed, Amitriptyline HCL 20 mg 1po qday, Rosuvastatin Calcium 40 mg 1 by mouth every day, Gabapentin 300 mg 1 by mouth three times a day, Tylenol Extra Strength 500 mg 2 by mouth every 8 hours, Amlodipine Besylate 5 mg 1 po qdaily, Citalopram Hydrobromide 20 mg, Pantoprazole Sodium 40 mg 1 by mouth every day, Celebrex 200 mg 1 by mouth q. day x14 days with lunch, Semaglutide? 1po qday PRE-OP EXAM:? General appearance:NORMAL? ? ? Other: Eyes: Conjunctivae and lids: NORMAL? Pupils: ERR Ears, Nose, Mouth, and Throat: NORMAL? Other: Inspection of lips, teeth and gums: NORMAL? ?Other: Neck: Examination of neck: no masses noted. Respiratory: Assessment of respiratory effort: NORMAL? ?Other: ?Auscultation of lungs: clear to auscultation no wheezes, rhonchi or rales. Cardiovascular:? Auscultation of heart: regular rate and rhythm, no murmurs, gallops or rubs. PHYSICAL EXAMINATION: Patient does walk with an antalgic gait.? Patient has tenderness to palpation over the right lateral hip.? She complains of groin pain.? Hip flexion 70 with obligatory external rotation.? Internal rotation neutral, external rotation 20.? She has pain with all range of motion.? 4/5 hip strength.? She is currently ambulating with cane today.? Sensation intact to light touch. IMAGING STUDIES: Previous x-rays of the right hip reveal severe stage IV [id number] osteoarthritis with joint space narrowing, subchondral sclerosis, osteophyte formation.? She has previous L4-L5 lumbar fusion.? Presence of left total hip arthroplasty. IMPRESSION: 1.? Severe right hip osteoarthritis 2.? Presence of left total hip arthroplasty: 2019 3.? Hypertension 4.? Hypercholesterolemia 5.? Gastroesophageal reflux disease 6.? Cervical neck pain and degenerative disc disease 7.? Impaired fasting glucose 8.? Anxiety 9.? Obesity with BMI 32.1 PLAN: Dr. Domenic Pham did discuss and review with the patient all treatment options including surgical versus nonsurgical options.? I will continue plan established by Dr. Domenic Pham.? Patient does wish to proceed with the above-stated procedure.? Potential risks, benefits, and complications of the procedure were discussed in detail including but not limited to , infection, nerve and blood vessel damage, persistent pain, numbness, tingling, paresthesias, blood clot, pulmonary embolism, and requirement for possible further surgery.? The patient expressed full understanding and has no further questions for the doctor.? Patient does agree to proceed with the above-stated procedure and has signed the surgery consent form. POST-OP MEDICATION PLAN: Pain Medications: Postoperative pain regimen will be initiated by Dr. Domenic Pham in the hospital.? Patient will resume her Celebrex postoperatively.? She has been using tramadol due to the pain.? She has been advised not to combine multiple narcotics postoperatively.? She did voice understanding.? Patient did test positive for MSSA and will be treated with doxycycline postoperatively.? She was instructed that this medication can make her more sensitive to the sunlight and she should take appropriate precautions.? Also recommended probiotic on the antibiotic.? She has stopped her GLP-1 weight loss medication and will resume this postoperatively.? She has a walker that she will bring to the hospital. DVT Prophylaxis Plan:? Aspirin 81 mg twice daily for 4 weeks postoperatively.? Denies past history of DVT or pulmonary embolism.? Patient will continue with BRIANDA hose for 2 weeks postoperatively. This dictation was created using voice recognition software. Phonetic and/or grammatical errors may exist. ___? I have re-examined the patient.? There are no clinical changes since date of exam. ___? See progress notes for changes. ___? Dictated on admission Date: ? ? ?Time: Signature:
[2025-03-02] VITALS (16 sets, daily range): BP systolic 93–129; BP diastolic 53–90; PULSE 83–113; RESP 16–18; TEMP 36.1–36.8; O2SAT 92–98; BMI 33.7
--- NOTE | 2025-03-02 08:52 | PCM.PRE.AN2 ---
ASA Classification* ASA Classification ASA Classification: 2 Assessment & Plan Anesthesia* Anesthesia Assessment Anesthesia Assessment: Discussed sedation and/or anesthesia options, risks, benefits, and alternatives with patient/parents/legal guardian/POA. Questions invited. The patient/parents/legal guardian/POA seems to understand and agrees to proceed with anesthesia plan. Reviewed the physical assessment, medical history, allergy history and patient home medications list prior to surgery/procedure/anesthetic and documented any changes. Performed airway and anesthesia risk assessments. Anesthesia Type Anesthesia Type: Spinal Anesthesia Focused Assessment* Airway Assessment Mouth opens: >3 cm Mallampati Score: II Labs Anesthesia Preop lab: CBC WBC 6.6 K/mm3 (4.4-11.0) 02/12/25 11:30 02/12/25 RBC 4.86 M/mm3 (4.2-5.4) 02/12/25 11:30 02/12/25 Hgb 14.7 g/dL (12.0-15.0) 02/12/25 11:30 02/12/25 Hct 44.9 % (37-47) 02/12/25 11:30 02/12/25 Plt Count 244 K/mm3 (150-450) 02/12/25 11:30 02/12/25 CHEMISTRY Potassium 4.0 mmol/L (3.3-5.1) 02/12/25 11:30 02/12/25 Sodium 140 mmol/L (133-145) 02/12/25 11:30 02/12/25 Magnesium 2.3 mg/dL (1.5-2.2) H 02/12/25 11:30 02/12/25 Phosphorus 3.3 mg/dL (2.5-4.9) 12/18/17 08:51 12/18/17 BUN 13 mg/dL (4-19) 02/12/25 11:30 02/12/25 Creatinine 0.79 mg/dL (0.70-1.20) 02/12/25 11:30 02/12/25 Glucose 106 mg/dL (70-99) H 02/12/25 11:30 02/12/25 TSH 1.410 uIU/mL (0.358-3.740) 03/24/24 10:35 10/07/24 COAG PT 12.3 SECONDS (11.7-14.9) 02/14/23 08:25 02/14/23 Pre-Assessment Diagnosis/Proposed Procedure Planned Operative Procedure(s): (R) ERAS, ANTERIOR RIGHT TOTAL HIP ARTHROPLASTY Anesthesia History 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 When Was Last Pacemaker Check QUESTION #4 FULL TEXT: You/Your Family Experience fever (hyperthermia) with Anesthesia Last Oral Intake Last Oral intake: Last Oral Intake NPO since Meds taken in AM with sips of water? 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 driver Female Yes 02/11/25 08:49 HX of Motion Sickness No 02/11/25 08:49 HX of N/V After Surgery No 02/11/25 08:49 Non-Smoker Yes 02/11/25 08:49 Duration of Surgery greater Yes 02/11/25 08:49 than 60 minutes Number of Risk Factors 3 02/11/25 08:49 PONV Score Moderate Risk 02/11/25 08:49 Height & Weight Height & Weight: Anesthesia: Height & Weight Height 5 ft 5 in 07/05/24 09:07 Respiratory Assessment Respiratory Assessment - freight delivery driver: Respiratory Tract Infection Hx - freight delivery driver Hx Respiratory Tract Infection No 02/11/25 08:49 STOP Sleep Apnea STOP Sleep Apnea - freight delivery driver: STOP Sleep Apnea - freight delivery driver Hx Hypertension Yes: CONTROLLED WITH MEDS 02/11/25 08:49 Hx Sleep Apnea No 02/11/25 08:49 CPAP No 02/11/25 08:49 BIPAP No 02/11/25 08:49 Do you snore loudly (louder No 02/11/25 08:49 than talking or can be heard Do you often feel tired/ No 02/11/25 08:49 fatigued/ sleepy during daytime? Has anyone observed you stop No 02/11/25 08:49 breathing during sleep? STOP Results Negative 02/11/25 08:49 QUESTION #5 FULL TEXT : Do you snore loudly (louder than talking or can be heard through closed doors)? 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 Specify any problems Hx of Preganancy in last 3 No 02/11/25 08:49 Months Nurse Filling Out Transfusion VCHRISTIN 02/11/25 08:49 & Questions: Date: 02/11/25 02/11/25 08:49 Time: 08:50 02/11/25 08:49 Patient unable to answer at this time (ie. confused, unrespo /Reproduction History /Reproductive History - freight delivery driver: /Reproductive Hx- freight delivery driver Hx Now No 02/11/25 08:49 Gestational Age (in weeks): EDC: Hx Hx Para Hx Section SAB No 02/11/25 08:49 Active Medications Active Medications: Current Medications Generic Name Dose Route Start Last Admin Trade Name Freq PRN Reason Stop Dose Admin Acetaminophen 1,000 mg 03/02/25 10:30 Acetaminophen 500 Mg Tablet PO 03/02/25 10:31 PREOP ONE Acetaminophen 1,000 mg 03/02/25 14:00 Acetaminophen 500 Mg Tablet PO Q8 HILARIA Aspirin 81 mg 03/02/25 10:00 Aspirin 81 Mg Tab.Chew PO BID HILARIA Celecoxib 400 mg 03/02/25 10:30 Celecoxib 200 Mg Capsule PO 03/02/25 10:31 PREOP ONE Sodium Chloride 77.9 ml/ 0 ml 03/02/25 10:30 Ropivacaine 200 mg/ OPERA.SITE 03/02/25 10:31 Epinephrine HCl 0.6 mg/ INTRAOP ONE Ketorolac Tromethamine 30 mg/ Morphine Sulfate 5 mg Dexamethasone Sodium Phosphate 10 mg 03/02/25 10:30 Dexamethasone 10 Mg/Ml Vial IV 03/02/25 10:31 INTRAOP ONE Doxycycline Monohydrate 100 mg 03/03/25 13:00 Doxycycline 100 Mg Capsule PO BID [facility] Enteral Nutritional Formula 237 ml 03/02/25 08:00 Ensure Surgery 237 Ml Liquid PO TIDCM [facility] Famotidine 20 mg 03/02/25 10:00 Famotidine 20 Mg Tablet PO DAILY HILARIA Gabapentin 600 mg 03/02/25 10:30 Gabapentin 600 Mg Tablet PO 03/02/25 10:31 PREOP ONE Vancomycin HCl 1,250 mg/ 275 mls @ 167 mls/hr 03/02/25 10:30 Sodium Chloride IV 03/02/25 12:08 PREOP ONE Lactated Ringer's 1,000 mls @ 999 mls/hr 03/02/25 10:30 IV 03/02/25 11:30 .Q1H1M HILARIA Cefazolin Sodium 2 gm/ Sodium 110 mls @ 150 mls/hr 03/02/25 10:30 Chloride IV 03/02/25 11:13 INTRAOP ONE Tranexamic Acid 1,000 mg/ 110 mls @ 660 mls/hr 03/02/25 10:30 Sodium Chloride IV 03/02/25 10:39 INTRAOP ONE Tranexamic Acid 1,000 mg/ 110 mls @ 660 mls/hr 03/02/25 10:30 Sodium Chloride IV 03/02/25 10:39 INTRAOP ONE Lactated Ringer's 1,000 mls @ 999 mls/hr 03/02/25 10:30 IV 03/02/25 11:30 .Q1H1M HILARIA Lactated Ringer's 1,000 mls @ 125 mls/hr 03/02/25 10:30 IV 03/02/25 18:29 .Q8H HILARIA Magnesium Sulfate 1 gm/ 102 mls @ 408 mls/hr 03/02/25 10:30 Dextrose IV 03/02/25 10:44 PREOP ONE Cefazolin Sodium 1 gm in 50 mls @ 100 mls/hr 03/02/25 07:00 IV 03/02/25 15:29 Q8H HILARIA Lactated Ringer's 1,000 mls @ 15 mls/hr 03/02/25 09:00 IV .Q48H [facility] Insulin Human Lispro 1 - 6 unit 03/02/25 10:30 Insulin Lispro 100 Unit/Ml Insuln.Pen SC Q4H PRN PRN BG>/= 180, SEE PROTOCOL Protocol Ketorolac Tromethamine 15 mg 03/02/25 06:58 Ketorolac 15 Mg/Ml Vial IV 03/03/25 06:59 Q6H PRN PRN Pain Score 1-10 Morphine Sulfate 2 - 4 mg 03/02/25 06:58 Morphine 2 Mg/Ml Syringe IV Q2H PRN PRN Pain Score 4-10 Ondansetron HCl 4 mg 03/02/25 06:58 Ondansetron 4 Mg/2 Ml Vial IV Q8H PRN PRN NAUSEA Oxycodone HCl 5 - 10 mg 03/02/25 06:58 Oxycodone 5 Mg Tablet PO Q4H PRN PRN Pain Score 4-10 Promethazine HCl 12.5 mg 03/02/25 06:58 Promethazine 25 Mg/Ml Syringe IM Q6H PRN PRN NAUSEA/VOMITING Protocol Senna/Docusate Sodium 2 tablet 03/02/25 10:00 Senna/Docusate Sodium 1 Tablet PO BID [facility] PFSH Medical History MRSA (methicillin resistant staph aureus) culture positive Family history of colon cancer in mother Hx of colonic polyps Post-menopausal Back pain Migraine headache Shortness of breath on exertion Leg cramps History of edema History of stress test History of pain when walking Hypertension Hx of fracture of finger Wears glasses Gastric reflux Non-smoker reconstruction of wrist history of L hip arthroscopy Vitamin D deficiency High cholesterol Arthritis Home Medications ?Medication ?Instructions ?Recorded ?Last Taken ?Type amitriptyline 10 mg tablet 50 mg PO QHS SLEEP 03/05/15 05/24/22 History multivitamin (Daily Multi-Vitamin 1 tab PO QAM SUPPLEMENT 08/02/17 05/24/22 History tablet) cholecalciferol (vitamin D3) 125 5,000 unit PO DAILY SUPPLEMENT 02/01/18 05/24/22 History mcg (5,000 unit) capsule albuterol sulfate 90 mcg/actuation 1 inh inhalation PRN PRN shortness 02/13/23 Unknown History aerosol inhaler of breath or wheezing amlodipine 5 mg tablet 5 mg PO DAILY BP 02/13/23 04/02/24 History gabapentin 300 mg capsule 300 mg PO BID 09/20/23 04/02/24 History rosuvastatin 40 mg tablet (Crestor) 40 mg PO DAILY 09/20/23 Unknown History calcium 500 mg (as 1 tab PO DAILY 02/11/25 Unknown History carbonate)-vitamin D3 10 mcg (400 unit) tablet (Calcium 500 + D) celecoxib 200 mg capsule 200 mg PO DAILY 02/11/25 Unknown History citalopram 20 mg tablet 20 mg PO DAILY 02/11/25 Unknown History pantoprazole 40 mg tablet,delayed 40 mg PO DAILY 02/11/25 Unknown History release semaglutide 0.25 mg or 0.5 mg (2 0.25 mg subcut QWEEK 02/11/25 Unknown History mg/1.5 mL) subcutaneous pen injector (Ozempic) Allergy/AdvReac Type Severity Reaction Status Date / Time lisinopril AdvReac Intermediate Itching Verified 02/11/25 08:37 Family History Mother Colon cancer Sister Colon polyps Other Arthritis Asthma Breast cancer Cancer Depression Heart disease Myocardial infarction Surgical History History of lumbar fusion Hx of colonoscopy History of total left hip replacement History of hysterectomy Social History household members: spouse current occupational status: retired Smoking Status: Never smoker alcohol intake: never substance use type: does not use what type of physical activity do you participate in: none Review of Systems (Anesthesia) ROS Narrative System reviewed and no additional complaints, except as documented.
[2025-03-02] MEDS: Magnesium 1 GM over 15 mins IV (09:18)
[2025-03-02] MEDS: LR 1,000 ML - BOLUS PREOP 999 ML IV (09:19)
--- NOTE | 2025-03-02 09:30 | RAD_ITS ---
PROCEDURE: HIP MIN 2 VIEWS (PORTABLE) 03/02/2025 REASON FOR EXAM: ANTERIOR RIGHT TOTAL HIP ARTHROPLASTY TECHNIQUE: Procedure Code: RADH_P Modality: DX Procedure: HIP MIN 2 VIEWS (PORTABLE) Laterality: Right COMPARISON: Right hip x-ray 12/2024. FINDINGS: Bones: No acute periprosthetic fractures. Status post bilateral hip replacement. Joints: Status post bilateral hip replacement. Soft tissues: No soft tissue abnormalities. Other: RAD/Hip Min 2 Views (Portable) IMPRESSION: Status post right hip replacement. No periprosthetic abnormalities. Reading Location: [id number]
[2025-03-02] MEDS: Vancomycin HCl 1,250 MG in 0.9% Normal Saline (250mL Bag) 250 ML 167 MG IV (09:32)
[2025-03-02] MEDS: Cefazolin 1 GM/5 ML Vial 2 GM IV (10:51)
--- NOTE | 2025-03-02 11:53 | OP.PCM_ITS ---
Operative Report (Standard) Operative Information Date of Procedure: 03/02/25 Pre-Operative Diagnosis: Right hip primary osteoarthritis Post-Operative Diagnosis: Right hip primary osteoarthritis Surgery/Procedure Performed: Right minimally invasive direct anterior total replacement dry folder cloth: Yes Foot Press Operator: Arely Gonzalez Tasks completed by cutting table operator first: Other (See body of operative report) Additional fws faculty assistant?: No Type of Anesthesia: Spinal RN Documented Start/Stop Times: Operation Date: 03/02/25 10:30 Case Time Into Pre-Op 03/02/25 08:49 Anesthesia Start 03/02/25 10:37 Into Room 03/02/25 10:37 Procedure Start 03/02/25 11:00
--- NOTE | 2025-03-02 11:53 | PCM.OPRPT ---
Operative Report (Standard) Operative Information Date of Procedure: 03/02/25 Pre-Operative Diagnosis: Right hip primary osteoarthritis Post-Operative Diagnosis: Right hip primary osteoarthritis Surgery/Procedure Performed: Right minimally invasive direct anterior total replacement filler feeder: Yes Pharmacist In Charge Owner: Arely Gonzalez Tasks completed by first mate: Other (See body of operative report) Additional assistant media buyer?: No Type of Anesthesia: Spinal RN Documented Start/Stop Times: Operation Date: 03/02/25 10:30 Case Time Into Pre-Op 03/02/25 08:49 Anesthesia Start 03/02/25 10:37 Into Room 03/02/25 10:37 Procedure Start 03/02/25 11:00 Procedure End 03/02/25 12:57 Anesthesia End 03/02/25 13:03 Out of Room 03/02/25 13:03 Into Recovery 03/02/25 13:06 Out of Recovery 03/02/25 14:19 Procedure Start Time: 11:00 Procedure Stop Time: 12:57 Select all DRAINS/GRAFTS/IMPLANTS that apply: Prosthetic device Prosthetic device details: See body of operative report Special Medications: 2 g Ancef, 1 g TXA at incision, 1 g TXA closure, 10 mg Decadron, joint cocktail (5 mg Duramorph, 30 mL of 0.5% Ropivicaine, 1000 units of epinephrine, 30 mg of Toradol) Estimated Blood Loss: 250 Fluids Replaced: 1000 Specimen collected: Yes Description of specimen(s) removed: Bony cuts Description of surgery: Components used: 1. Insignia [place] femoral stem size 2 high offset 2. [place] trident 2 acetabular shell size 48 mm 3. Tosin X3 polyethylene D 4. Tosin Biolox delta 36mm, 0mm femoral head Brief history operative indications: 64 yo f who failed conservative measures for their hip osteoarthritis. X-rays were consistent with osteoarthritis including joint space narrowing, osteophyte formation and subchondral cysts. Total hip replacement was discussed with the patient with risks and benefits including but not limited to blood loss, DVTs, PEs, neurovascular damage, dislocation, general risks of anesthesia including loss of life. Patient demonstrated an understanding medical clearance is obtained the patient was consented for surgery. Procedure: On the date of procedure the patient's R hip was marked in the preoperative area. Patient was then taken back to the operating room where anesthesia assumed control of the C-spine and airway and administered anesthetic. Patient was transferred to the operating table and placed in the supine position. The hips were placed at the break of the bed and a sacral bump was placed. The R lower extremity was then prepped out in a sterile fashion using chlorhexidine while the surgeon scrubbed. The PA was vital in the positioning of the patient. Upon reentering the room the R lower extremity was draped in the standard orthopedic fashion and the incision was marked. A timeout was called and everyone agreed upon the side, the site, the procedure be performed, antibody given, and patient's identity. At this time incision was made through skin, subcutaneous tissue, and fat down to fascia. The fascia was then incised and the TFL was retracted laterally. A retractor was placed on the lateral border of the femoral neck. Attention was directed to the inferior portion of the approach and all crossing vessels were identified and appropriately coagulated. A retractor was then placed on the medial portion of the femoral neck. The anterior capsule was then cleared of all soft tissue and then H shaped capsulotomy was made. The retractors were then placed inside the capsule. The femoral neck was identified and a cleanup cut was made. At this time a power corkscrew was used to remove the femoral head. Attention was then turned toward the acetabulum where the soft tissues were appropriately retracted and the acetabulum was sequentially reamed to 48 mm. A 48 mm cup was then selected and impacted into place. Acetabular liner was impacted into place and locking mechanism was verified. The position of the acetabular cup was then verified under live fluoroscopy. Attention was then turned to the femur. Soft tissue releases on the medial and lateral femoral neck were appropriately done, the leg was externally rotated and lateralized. A [place] retractor was placed medially and proximally to the greater trochanter this allowed appropriate visualization and exposure of the femoral canal. Ronge[place] was then used to remove excess lateral bone. A canal finder and entry broach were used to open the proximal canal. Once we verified we were down the femoral canal we subsequently broached up to a size 2 femur. The appropriate neck was placed in the previously selected head was trialed with a 0 mm neck. Traction was pulled and the hip was reduced with internal rotation. Once it was appropriately reduced and stability was checked. There was minimal shuck, equal leg lengths and appropriate stability with hyperextension and external rotation as well as with 90? flexion and internal rotation. Fluoroscopy was then also used to verify the position of the components and leg lengths using the contralateral side for comparison. The trial components were then dislocated the proximal femur was again exposed and the components were removed from the wound. The final components were verified and opened. The wound was copiously irrigated out with normal saline. The acetabulum was checked for any residual debris. The final components were placed and impacted. Traction and internal rotation were again used to reduce the hip. After adequate reduction the hip remained stable with appropriate leg lengths. The final components were once again checked with live fluoroscopy and were found to be satisfactory. The wound was then copiously irrigated with normal saline once more, and hemostasis was obtained. Closure was then done using #1 Vicryl runner to close the fascia. A 2-0 vicryl interuppted sutures were used to close the subcutaneous skin. A 3-0 Monocryl and Steri-Strips were used for final skin closure. A Silverlon dressing was placed. Patient was awakened by anesthesia and transferred to the [facility]. Patient was then transferred to the PACU for recovery. Postoperative plan: Patient will get 24 hours postop antibiotics. Patient will get in-house physical therapy and will be weight-bear as tolerated. Patient will follow up in office in 2 weeks for a wound check and x-rays. Aspirin 81 mg twice daily. Patient replaced on extended postop antibiotics due to positive preoperative staph screening. During the course of the procedure the physician armoured car escort (PE) played a vital role. Their intimate knowledge of my steps in the procedure aided in safe and expedient completion of the procedure. The PE played a vital rolls in positioning particularly in obtaining the appropriate positioning of the sacral bump. The PE was also vital in the retraction of soft tissues during the exposure and especially the femoral work as this is a vital part of the procedure to prevent complications and fractures. The PE was also vital and protecting soft tissues during times of bony cuts and reaming. He also played a vital role in closure with my direct supervision. The PE was also important during reduction and dislocation of the joint and trials intraoperatively. Surgical Findings: Stable hip with equal leg lengths Complications Complications: No Admit VTE Documentation VTE Present on Admission: Yes VTE Mechan Device Prophylaxis: SCD's and Thigh High BRIANDA Hose VTE Pharm Prophylaxis ordered?: Yes
[2025-03-02] MEDS: TRANEXAMIC ACID 1,000 MG/10 ML ML 2000 MG IV (11:58)
[2025-03-02] MEDS: JPS (Morphine 10mg/ml) OPERA.SITE (11:59)
--- NOTE | 2025-03-02 13:12 | PCM.POST.ANE ---
Anesthesia: Postop Eval I Current Vital Signs Temperature: 97.2 F Pulse Rate: 88 Blood Pressure: 93/68 Respiratory Rate: 16 Pulse Ox: 94 Oxygen Delivery Method: Nasal Cannula Assessment Airway patent: Yes Spontaneous unlabored respirations: Yes Mental status: Awake and Calm nausea: No Vomiting: No Anesthesia Complication: No Fluid Hydration Crystalloid volume administer (ml): 1,200 Total IV fluid infused: 1,200 Progress Note Anesthesia document: Postop Eval 1 completed: Yes
[2025-03-02] MEDS: LR 1,000 ML - BOLUS POSTOP 999 ML IV (13:15)
--- NOTE | 2025-03-02 13:15 | RAD_ITS ---
PROCEDURE: HIP MIN 2 VIEWS (PORTABLE) 03/02/2025 REASON FOR EXAM: POST OP Status post right total hip replacement. TECHNIQUE: Procedure Code: RADH_P Modality: DX Procedure: HIP MIN 2 VIEWS (PORTABLE) Laterality: Right hip COMPARISON: Prior study dated January 12, 2025. FINDINGS: The patient is status post right total hip replacement. There is good alignment. Postoperative soft tissue changes. Remote left hip replacement. RAD/Hip Min 2 Views (Portable) IMPRESSION: Status post right total hip replacement. There is good alignment. Postoperative soft tissue changes. [facility]
--- NOTE | 2025-03-02 14:11 | POSTOPAN2_ITS ---
Anesthesia Postop Eval I Sum Postop Eval Completion status Anesthesia document: Postop Eval 1 completed: Yes Anesthesia Postop Eval I Summary Anesthesia Postop Eval I Summary: Anesthesia Postop Eval I: Assessment Summary Airway patent Yes 03/02/25 13:12 [employer]MEDM Spontaneous unlabored Yes 03/02/25 13:12 [employer]MEDM respirations Mental status Awake,Calm 03/02/25 13:12 [employer]MEDM nausea No 03/02/25 13:12 [employer]MEDM Vomiting No 03/02/25 13:12 [employer].MEDM Anesthesia Postop Eval I: Fluid Summary Crystalloid volume administer 1,200 03/02/25 13:12 [employer].MEDM (ml) Colloids volume administered ( ml) Blood Product volume administered (ml) Total IV fluid infused 1,200 03/02/25 13:12 [employer].MEDM Anesthesia Postop Eval I: Summary Notes Anesthesia Complication No 03/02/25 13:12 [employer].MEDM Anesthesia Complication Comment: Post-operative progress note Anesthesia: Postop Eval II Evaluation Mental status: Awake Pain Level: 0 nausea: No Vomiting: No
--- NOTE | 2025-03-02 14:11 | PCM.POSTANE2 ---
Anesthesia Postop Eval I Sum Postop Eval Completion status Anesthesia document: Postop Eval 1 completed: Yes Anesthesia Postop Eval I Summary Anesthesia Postop Eval I Summary: Anesthesia Postop Eval I: Assessment Summary Airway patent Yes 03/02/25 13:12 VAMP [email or web address] Spontaneous unlabored Yes 03/02/25 13:12 VAMP [email or web address].MEDM respirations Mental status Awake,Calm 03/02/25 13:12 VAMP [email or web address].MEDM nausea No 03/02/25 13:12 VAMP THROATER.MEDM Vomiting No 03/02/25 13:12 VAMP [email or web address].MEDM Anesthesia Postop Eval I: Fluid Summary Crystalloid volume administer 1,200 03/02/25 13:12 VAMP [email or web address].MEDM (ml) Colloids volume administered ( ml) Blood Product volume administered (ml) Total IV fluid infused 1,200 03/02/25 13:12 VAMP [email or web address].MEDM Anesthesia Postop Eval I: Summary Notes Anesthesia Complication No 03/02/25 13:12 VAMP [email or web address].MEDM Anesthesia Complication Comment: Post-operative progress note Anesthesia: Postop Eval II Evaluation Mental status: Awake Pain Level: 0 nausea: No Vomiting: No
[2025-03-02] MEDS: LR 1,000 ML - 125 ML/HR (POST BOLUS) POST OP IV (14:14)
[2025-03-02] MEDS: 0.9% Saline Lock 10 ML Syringe IV (14:52)
[2025-03-02] MEDS: Cefazolin 1 GM/50 ML BAG IV (18:36)
--- NOTE | 2025-03-02 21:06 | PCM.CONS.GEN ---
Assessment & Plan Assessment/Plan (1) Hypertension: PLAN: Plan #Hypertension - Will hold amlodipine to allow room for pain control - Can add back if pressures tolerate # Hyperlipidemia - Continue statin #Depression/anxiety -Continue home medications #GERD -Continue PPI # Right hip primary osteoarthritis - Status post right minimally invasive direct anterior total replacement with Dr. Pham 03/02/2025 - Management/pain management per primary #DVT ppx: Timing and agent discretion of primary Nancie Tovar MD Time spent in the patient's overall evaluation, decision-making process, review of diagnostic data, adjustment of management, discussion with other providers, nursing and ancillary staff involved in patient's care documentation, 12 Minutes HPI Consult Data Date of Consult: 03/02/25 HPI Narrative Reason for Consultation: Postoperative medical management HPI Narrative: VELMA CRUZ, is a 64 F with history of GERD, depression, hypertension who presented [facility] 03/02/2025 for right minimally invasive direct anterior total replacement of right hip. Hospitalist consulted for postoperative medical management. Patient reports she is already been up to the bathroom and did have pain in her hip however being back in bed she is feeling somewhat better, sat up in the chair earlier for 2 hours and did well. Ate dinner with no acute complaints. No chest pain or shortness of breath. No other new or acute complaints [facility] History (Updated 03/02/25 @ 21:[address] Nancie Tovar MD) Arthritis Back pain Family history of colon cancer in mother Gastric reflux High cholesterol History of edema history of L hip arthroscopy History of pain when walking History of stress test Hx of colonic polyps Hx of fracture of finger Hypertension Leg cramps Migraine headache MRSA (methicillin resistant staph aureus) culture positive Non-smoker Post-menopausal reconstruction of wrist Shortness of breath on exertion Vitamin D deficiency Wears glasses Home Medications ?Medication ?Instructions ?Recorded ?Last Taken ?Type amitriptyline 10 mg tablet 50 mg PO QHS SLEEP 03/05/15 03/01/25 History multivitamin (Daily Multi-Vitamin 1 tab PO QAM SUPPLEMENT 08/02/17 03/01/25 History tablet) cholecalciferol (vitamin D3) 125 5,000 unit PO DAILY SUPPLEMENT 02/01/18 02/27/25 History mcg (5,000 unit) capsule albuterol sulfate 90 mcg/actuation 1 inh inhalation PRN PRN shortness 02/13/23 Unknown History aerosol inhaler of breath or wheezing amlodipine 5 mg tablet 5 mg PO DAILY BP 02/13/23 03/02/25 07:30 History gabapentin 300 mg capsule 300 mg PO BID 09/20/23 03/01/25 History rosuvastatin 40 mg tablet (Crestor) 40 mg PO DAILY 09/20/23 03/01/25 History calcium 500 mg (as 1 tab PO DAILY 02/11/25 02/27/25 History carbonate)-vitamin D3 10 mcg (400 unit) tablet (Calcium 500 + D) celecoxib 200 mg capsule 200 mg PO DAILY 02/11/25 02/27/25 History citalopram 20 mg tablet 20 mg PO DAILY 02/11/25 03/01/25 History pantoprazole 40 mg tablet,delayed 40 mg PO DAILY 02/11/25 03/02/25 History release semaglutide 0.25 mg or 0.5 mg (2 0.25 mg subcut QWEEK 02/11/25 02/19/25 History mg/1.5 mL) subcutaneous pen injector (Ozempic) diazepam 10 mg tablet 10 mg PO X1 03/02/25 03/02/25 07:30 History Allergy/AdvReac Type Severity Reaction Status Date / Time lisinopril AdvReac Intermediate Itching Verified 02/11/25 08:37 Family History Mother Colon cancer Sister Colon polyps Other Arthritis Asthma Breast cancer Cancer Depression Heart disease Myocardial infarction Surgical History History of hysterectomy History of lumbar fusion History of total left hip replacement Hx of colonoscopy Social History household members: spouse current occupational status: retired Smoking Status: Never smoker alcohol intake: never substance use type: does not use what type of physical activity do you participate in: none ROS ROS Narrative ROS reviewed and pertinent positives and negatives as written in HPI Physical Exam Narrative General: Alert, oriented, no apparent distress HEENT: Atraumatic, normocephalic Eyes: Anicteric, normal conjunctiva, extraocular movements grossly intact Neck: Supple Respiratory: Clear to auscultation bilaterally, normal respiratory effort Cardiovascular: Regular rate and rhythm GI: Soft, nontender, nondistended Extremities: No edema Musculoskeletal: Patient postop with right hip Neuro: No overt focal neurological deficits Skin: No rashes appreciated Psych: Cooperative Lab / Micro Data 02/12/25 11:30 02/12/25 11:30 Labs: Laboratory Results - last 24 hr 03/02/25 09:04: POC Glucose 112 H Imaging Radiology Impression Hip X-Ray 03/02/25 13:15 IMPRESSION: Status post right total hip replacement. There is good alignment. Postoperative soft tissue changes. Reading Location: [place] [address] Charges/Coding Visit Charges Office Visits / Consults: 34713 OV L2 Est 10min
[2025-03-02] MEDS: Senna/Docusate Sodium 1 Tablet 2 TABLET PO (21:51)
[2025-03-03 02:45] VITALS: BP 115/75; PULSE 66; RESP 16; TEMP 36.2; O2SAT 94
[2025-03-03] MEDS: Cefazolin 1 GM/50 ML BAG IV (03:05)
[2025-03-03 05:03] LABS: Hematocrit 32.2 % (37-47); Hemoglobin 10.7 g/dL (12.0-15.0); Immature Granulocytes Count 0.080 X10^3/uL (0.0-0.0); Mean Corp Hgb Conc 33.2 g/dL (32-36); Mean Corpuscular Volume 91.7 fL (81-99); Mean Platelet Vol. 10.5 fl (6.2-12.0); NRBC Flagged by Analyzer 0 % (0-5); Platelet Count 194 K/mm3 (150-450); RBC Distribution Width CV 13.6 % (11.6-14.6); RBC Distribution Width SD 45.4 fl (35.1-43.9); Red Blood Count 3.51 M/mm3 (4.2-5.4); White Blood Count 14.4 K/mm3 (4.4-11.0)
[2025-03-03 05:28] LABS: Anion Gap 10 (5-15); BUN 11 mg/dL (4-19); BUN/Creat Ratio 14.8 RATIO (10-20); Calcium,Total 9.1 mg/dL (7.6-11.0); Carbon Dioxide 24.1 mmol/L (21.0-32.0); Chloride 105 mmol/L (98-108); Estimated Creatinine Clearance 78.58 ml/min (50-250); Glucose 170 mg/dL (70-99); Potassium 3.5 mmol/L (3.3-5.1)
[2025-03-03 05:50] VITALS: BP 119/71; PULSE 79; RESP 16; TEMP 36.4; O2SAT 93
--- NOTE | 2025-03-03 07:32 | PN.HOSP_ITS ---
Subjective Subjective Patient is a 64-year-old lady who underwent right total hip replacement on 03/02/[address] Pham. Admitted to MedSurg unit after the procedure hospitalist service consulted to assist with management of patient medical comorbidities Objective Data Objective Data Vital Signs: Vital Signs Temp Pulse Resp BP Pulse Ox O2 Del Method O2 Flow Rate 97.6 F L 79 16 119/71 93 Room Air 2 03/03/25 05:50 03/03/25 05:50 03/03/25 05:50 03/03/25 05:50 03/03/25 05:50 03/03/25 05:50 03/02/25 15:42 Oxygen Flow Rate (L/min) 2 Oxygen Delivery Method Room Air Weight: 92 kg Body Mass Index (BMI) 33.7 Intake & Output: Intake and Output for Last 24 Hours 03/01/25 03/02/25 03/03/25 23:59 23:59 23:59 Intake Total 3266 / 3446 230 / 230 Output Total 250 / 250 Balance 3016 / 3196 230 / 230 Lab / Micro Data 03/03/25 04:14 03/03/25 04:14 Labs: Laboratory Results - last 24 hr 03/02/25 09:04: POC Glucose 112 H 03/03/25 04:14: WBC 14.4 H, RBC 3.51 L, Hgb 10.7 L, Hct 32.2 L, MCV 91.7, MCH 30.5, MCHC 33.2, RDW Std Deviation 45.4 H, RDW Coeff of Margarita 13.6, Plt Count 194, MPV 10.5, Immature Gran % (Auto) 0.600, Neut % (Auto) 88.6 H, Lymph % (Auto) 6.7 L, [place] % (Auto) 3.9, Eos % (Auto) 0.0, Baso % (Auto) 0.2, Absolute Neuts (auto) 12.8 H, Absolute Lymphs (auto) 0.97, Nucleated RBC % 0, Sodium 139, Potassium 3.5, Chloride 105, Carbon Dioxide 24.1, Anion Gap 10, BUN 11, Creatinine 0.72, Estim Creat Clear Calc 78.58, Est GFR (MDRD) Non-Af 92, BUN/Creatinine Ratio 14.8, Glucose 170 H, Calcium 9.1 Micro: Microbiology 02/12/25 11:30 Swab (Method) Nasal Screen MRSA/MSSA - Final Radiography Diagnostic Testing: Radiology Impression Hip X-Ray 03/02/25 13:15 IMPRESSION: Status post right total hip replacement. There is good alignment. Postoperative soft tissue changes. Reading Location: [place] [id number] Physical Exam Narrative GENERAL: cooperative HEENT: Atraumatic; normocephalic EYES; Anicteric, Normal Conjunctiva NECK; supple, normal thyroid, RESPIRATORY: Diminished to auscultation CARDIOVASCULAR: Regular S1 S2, GI: soft, normoactive bowel sounds, : No Renal angle tenderness; EXTREMITIES: No edema, no clubbing, MUSCULOSKELETAL: no muscle wasting NEURO: Awake; no lateralizing signs. SKIN: No Rash PSYCH; Flat affect Assessment & Plan Assessment/Plan (1) Hypertension: PLAN: Plan Patient is a 64-year-old lady who underwent right total hip replacement on 03/02/[address] Pham. Admitted to MedSur unit after the procedure hospitalist service consulted to assist with management of patient medical comorbidities 1. Status post right total hip replacement Patient had right minimally invasive direct anterior total replacement with Dr. Pham 03/02/2025. Postoperative orders regarding pain management, PT OT DVT prophylaxis deferred to primary service 2. Hypertension ? Blood pressure controlled, home medications continued with dose adjustment as needed 3. Dyslipidemia ?Patient is on statin therapy, continued at home dose 4. Depression with anxiety Patient is on citalopram did continue 5. GERD ? On PPI 6. Class I obesity with BMI of 33.8 ? Patient is on semaglutide as outpatient 7. Anemia ? Secondary to acute blood loss anemia following surgery. Patient hemoglobin on 02/12/2025 was 14.7, hemoglobin on 03/03/2025 was 10.7. Monitoring H&H and transfuse if patient becomes symptomatic or hemoglobin falls below 7 8. DVT prophylaxis will defer to primary service Time spent in the patient's overall evaluation, decision-making process, review of diagnostic data, adjustment of management, discussion with other providers, nursing and ancillary staff involved in patient's care documentation, 36 Minutes Charges/Coding Visit Charges Inpatient E&M: 52583 Subs Hosp L2
--- NOTE | 2025-03-03 08:09 | NURSING ---
Charting from 03/02/25 1900-03/03/25 0700, including shift assessment, postop checks, nursing notes, Luis, fall risk assessment, rounds, and vitals charted via paper charting on pt chart due to lack of [employer] access-IS aware.
--- NOTE | 2025-03-03 08:43 | PCM.PN.ORT ---
Subjective Subjective Patient is sitting comfortably in bed upon examination today. Patient states that she is eager to get home. Patient states that she does have help at home and she feels comfortable with her helping her. Patient was educated that her pain is controlled at this time. Patient denies any nausea, vomiting, dizziness. Patient denies any new numbness or tingling. Patient denies any shortness of breath, chest pain, calf pain. Patient denies any fevers, chills, signs of infection. Patient denies any adverse events overnight. Objective Data Objective Data Vital Signs: Vital Signs Temp Pulse Resp BP Pulse Ox O2 Del Method O2 Flow Rate 97.6 F L 79 16 119/71 93 Room Air 2 03/03/25 05:50 03/03/25 05:50 03/03/25 05:50 03/03/25 05:50 03/03/25 05:50 03/03/25 05:50 03/02/25 15:42 Oxygen Flow Rate (L/min) 2 Oxygen Delivery Method Room Air Weight: 92 kg Body Mass Index (BMI) 33.7 Intake & Output: Intake and Output for Last 24 Hours 03/01/25 03/02/25 03/03/25 23:59 23:59 23:59 Intake Total 3266 / 3446 230 / 230 Output Total 250 / 250 Balance 3016 / 3196 230 / 230 Lab / Micro Data 03/03/25 04:14 03/03/25 04:14 Labs: Laboratory Results - last 24 hr 03/02/25 09:04: POC Glucose 112 H 03/03/25 04:14: WBC 14.4 H, RBC 3.51 L, Hgb 10.7 L, Hct 32.2 L, MCV 91.7, MCH 30.5, MCHC 33.2, RDW Std Deviation 45.4 H, RDW Coeff of Margarita 13.6, Plt Count 194, MPV 10.5, Immature Gran % (Auto) 0.600, Neut % (Auto) 88.6 H, Lymph % (Auto) 6.7 L, [place] % (Auto) 3.9, Eos % (Auto) 0.0, Baso % (Auto) 0.2, Absolute Neuts (auto) 12.8 H, Absolute Lymphs (auto) 0.97, Nucleated RBC % 0, Sodium 139, Potassium 3.5, Chloride 105, Carbon Dioxide 24.1, Anion Gap 10, BUN 11, Creatinine 0.72, Estim Creat Clear Calc 78.58, Est GFR (MDRD) Non-Af 92, BUN/Creatinine Ratio 14.8, Glucose 170 H, Calcium 9.1 Micro: Microbiology 02/12/25 11:30 Swab (Method) Nasal Screen MRSA/MSSA - Final Radiography Diagnostic Testing: Radiology Impression Hip X-Ray 03/02/25 13:15 IMPRESSION: Status post right total hip replacement. There is good alignment. Postoperative soft tissue changes. Reading Location: [facility] Physical Exam Narrative Vitals stable and afebrile. Tenderness in place bilaterally. SCDs in place bilaterally Dressing is clean dry and intact. Right hip is soft and supple. Sensation intact to light touch. Neurovascularly intact overall. Dorsiflexion and plantarflexion are performed not pain or restriction Negative Homans bilaterally. Const alert, oriented x3 and no apparent distress Assessment & Plan Assessment/Plan (1) Status post right hip replacement: PLAN: Status post anterior right total hip arthroplasty day 1. 1. DVT prophylaxis: Patient will be on aspirin 81 mg twice daily for 4 weeks postoperatively. Patient was educated to wear BRIANDA hose for 2 weeks postoperatively removing for showers and removing at bedtime. 2. Pain medications: Patient will be on Tylenol 1000 mg every 8 hours, patient's regularly scheduled Celebrex, oxycodone as needed for postoperative pain control. OARRS report was checked and reviewed in office today. Patient was educated not to drive or operate machinery while on narcotic pain medication. Risk of abuse was reviewed with patient in office today. Patient voiced understanding. 3. Constipation: Patient was instructed to take senna as an instructed until her first bowel movement to decrease risk of impaction following surgery. Patient was educated they do not have a bowel movement within 3 days to call our office for reevaluation. 4. Physical therapy: Patient will be weightbearing as tolerated with physical therapy. Anterior hip precautions were gone over with patient today. Patient does have outpatient physical therapy established at this time. 5. H&H: 10.7/32.2. Vitals are stable and afebrile at this time. 6. Reactive leukocytosis: White blood cell count is currently 14.4. Patient did receive intraoperative Decadron. Vital signs are stable and afebrile at this time. No current signs of infection. 7. Incentive spirometry: Patient was encouraged to use incentive spirometer every hour they are awake for the first week to exercise along decrease risk of postoperative lung infection. 8. Doxycycline: Patient will be on doxycycline for 2 weeks due to positive MSSA culture prior to surgery. Patient was educated on increased risk of sunburn with doxycycline and was educated to take an probiotic while on doxycycline. Patient voiced understanding. 9. Dressings: Patient was educated that she can get dressings wet on postop day 1. Patient was educated she can remove dressings on postop day 5 and leave incision open to air as long as incision is clean, dry, intact. 10. Patient will follow-up per postoperative instructions. 11. Medicine is involved in this case and will see patient today. 12. Patient will need a follow-up appointment with our office in 2 weeks for wound check. 13. Disposition: Patient is okay for discharge today as long as pain maintains adequately controlled, has worked with and is cleared by physical therapy, and is okay per medicine doctors recommendations. Patient will continue to be weightbearing as tolerated with physical therapy. Patient was educated on postoperative anterior hip precautions at this time. Patient will need to work with physical therapy today prior to leaving. Patient does have outpatient physical therapy established. Patient does have 2-week follow-up visit with our office scheduled at this time. Patient's medications will be sent to pharmacy of choice which is [facility]. Patient states that she does have aspirin, Tylenol, Celebrex at home. Patient states that she feels she does not need Zofran at this time. Patient was educated to call with any questions, concerns, new problems. All questions were answered to the best my ability.
[2025-03-03] MEDS: Senna/Docusate Sodium 1 Tablet 2 TABLET PO (08:49)
--- NOTE | 2025-03-03 08:51 | DCINST_ITS ---
Discharge Instructions DC O2, CPAP, BIPAP needs Home O2 Discharge instructions: No Dressing / Incision Discharge Activity: May Not Drive (No driving for 6 weeks postoperatively.) and Use Walker (Weightbearing as tolerated with walker.) Weight Bearing Status: Weight bearing as tolerated (With walker.) Keep extremity elevated above heart level: Right Leg Dressing / Incision Call your doctor if your incision/area has: Continuous Slow Oozing, Sudden Increased Bleeding, Increased Pain/ Swelling, Increased Redness, Foul Smelling Discharge and Swelling at the incision site Call your doctor if you observe: Fever of 101 or Higher, Coldness, Increased Pain, Numbness or Tingling, Change in Color, Inability to urinate, Inability to have a bowel movement, Shortness of breath, Dizziness, Fainting spells, Swelling in the ankles, Chest pain, Prolonged hiccupping, Increased palpitations (irregular heartbeat), Calf discomfort and Uncontrolled pain Remove Dressing in: 5 days (Can remove dressing on postop day 5-03/07/2025. As long as incision is clean, dry, intact can leave open to air.) Cleanse incision/area with: Soap & Water (Gentle soap and water in the shower.) Additional Dressing/Incision Instructions:: No soaking, submerging incision for 6 weeks postoperatively. No lotions, salves, oils over incision for 6 weeks postoperatively. Patient will be on doxycycline for 2 weeks postoperatively. Patient was educated on the risk of sunburn as well as benefits of taking a probiotic while on doxycycline. OARRS report was reviewed in hospital today. Patient was educated on to operate motor vehicle while taking narcotics. Risk of abuse was discussed. Patient voiced understanding. Patient was educated not to combine multiple narcotic pain medications postoperatively as patient has previously been on tramadol. Patient voiced understanding. Follow Up Care Test Results: Test results from this visit will be discussed in further detail at your follow- up appointment, if applicable. Discharge Plan Admission Admit Date/Time: 03/02/25 06:58 Attending Provider: Cong Mathur Primary Care Provider: Jeyson Baker Consulting Providers: Stephane Pulido; Abram Jones; Levar March; Nancie Tovar; Domenic Pham Discharge Orders/Prescriptions Prescriptions: New acetaminophen 500 mg Tablet 1,000 mg PO Q8 Qty: 0 0RF Rx Instructions: Take Tylenol 1000 mg every 8 hours for postoperative pain control. famotidine 20 mg Tablet 20 mg PO DAILY 30 Days Qty: 30 0RF doxycycline monohydrate 100 mg Capsule 100 mg PO BID 14 Days Qty: 28 0RF aspirin 81 mg Tablet,Chewable 81 mg PO BIDCM Qty: 0 0RF Rx Instructions: Take aspirin 81 mg twice daily for 4 weeks postoperatively. oxycodone 5 mg Tablet 5 - 10 mg PO Q4H PRN PRN (Reason: As needed for pain) 7 Days Qty: 42 0RF sennosides-docusate sodium [Stimulant Laxative Plus] 8.6-50 mg Tablet 2 tab PO BID 3 Days Qty: 12 0RF Rx Instructions: Take until first bowel movement and then can take as needed. Continued multivitamin [Daily Multi-Vitamin] tablet 1 tab PO QAM gabapentin 300 mg capsule 300 mg PO BID rosuvastatin [Crestor] 40 mg tablet 40 mg PO DAILY amitriptyline 10 MG tablet 50 mg PO QHS cholecalciferol (vitamin D3) 5,000 UNIT capsule 5,000 unit PO DAILY albuterol sulfate 90 mcg/actuation HFA aerosol inhaler 1 inh INHALATION PRN PRN (Reason: shortness of breath or wheezing) amlodipine 5 mg tablet 5 mg PO DAILY calcium carbonate-vitamin D3 [Calcium 500 + D] 500 mg-10 mcg (400 unit) tablet 1 tab PO DAILY citalopram 20 mg tablet 20 mg PO DAILY pantoprazole 40 mg tablet,delayed release (DR/EC) 40 mg PO DAILY Ozempic 0.25 mg or 0.5 mg(2 mg/1.5 mL) pen injector 0.25 mg subcut QWEEK Patient Comments: takes on , last dose 02/19/2025 Rx Instructions: for 4 weeks diazepam 10 mg tablet 10 mg PO X1 celecoxib 200 mg capsule 200 mg PO DAILY 30 Days Qty: 30 0RF Rx Instructions: Do not take with any other anti-inflammatory medications. Referrals / Follow Up: Jeyson Baker MD [Primary Care Provider] - Disposition Disposition (needs filled in before D/C Order can be placed): Home, Self Care
[2025-03-03 08:54] VITALS: BP 113/78; PULSE 85; RESP 16; TEMP 36.6; O2SAT 95
--- NOTE | 2025-03-03 09:44 | CASEMGMT ---
CHAKRABORTY Met with patient to complete CHAKRABORTY form. CHAKRABORTY form and its content were verbally explained and patient's questions were answered to the best of my ability.? Patient voiced understanding and signed CHAKRABORTY form.? Patient provided a copy of signed CHAKRABORTY form and original placed in patient's chart.? Patient had no further questions. Kenzie Barros, Discharge Planning Asst
--- NOTE | 2025-03-03 09:50 | CASEMGMT ---
Noted therapy notes and observed pt ambulating in plasencia. RN CM into pt room, pt sitting up in chair dressed in home clothes. Pt has her walker in the room. Pt states she has outpt therapy set up on . She states her is able to help her at home. Pt has dc order in. Pt denies any homegoing needs at this time.
== END 2025-03-03 14:12 | disposition home or self-care (01) ==
LOC: SDC 16:49 → AC 16:49 → SDC 16:49 → MS3 16:50
PROVIDERS: Anesthesiology; Admitting Provider Specialist; PCP Family Medicine; Referring Provider Specialist; Visit Provider Internal Medicine
PROC: (CPT 27284; principal; 2025-03-02 10:05)
DX: M16.11 Unilateral primary osteoarthritis, right hip (principal); K21.9 Gastro-esophageal reflux disease without esophagitis; Z79.899 Other long term (current) drug therapy; M50.30 Other cervical disc degeneration, unspecified cervical region; I10 Essential (primary) hypertension; E78.00 Pure hypercholesterolemia, unspecified; F41.8 Other specified anxiety disorders; R73.01 Impaired fasting glucose; E66.811 Obesity, class 1; Z68.32 Body mass index [BMI] 32.0-32.9, adult; D62 Acute posthemorrhagic anemia
CPT/HCPCS: 27130; 01214; 36415; 73502; 76000; 80048; 82040; 82962; 83735; 85025; 87077; 87081; 93005; 94668; 96361; 96365; 96366; 96375; 96376; 97162; 97166; 99221; C1776; A4216; G0378; J3475

== ENCOUNTER → 2025-05-11 | Outpatient (CLI) | payer MEDICARE, SELFPAY | END | disposition home or self-care (01) | LOC: SL 09:58 | PROVIDERS: PCP Family Medicine; Visit Provider Family Medicine | DX: Z00.00 Encounter for general adult medical examination without abnormal findings (principal) ==